=== PATIENT | female | born 2000 | race Caucasian/White ===

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

== ENCOUNTER 2021-01-16 19:55 | Emergency (ER) | payer BC, OTHER, SELFPAY ==
--- OUTSIDE RECORDS SUMMARY | 2021-01-16 19:58 | XMS REPORT | Continuity of Care Document ---
:2000 Author Organization [facility] t Address [address] [place] [address] Care Team Providers Name Role Phone SAVANAH Attending Clinician Unavailable Payers Payer Name Policy Type Policy Number Effective Date Expiration Date S ource Problems Condition Condition Condition Status Onset Resolution Last Treating Co mments Source Name Details Category Date Date Treatment Clinician Date Dog bite Dog bite Problem Active Unive rs of right of right HL7.CCDAR2 it y of hand, [facility], [place] initial initial Physici encounter encounter ans History [...] Allergie 2-14 Clear s 00:00: Duff 00 [facility] Lexapro drug Active Univers TABS allergy ity of [place] Physici ans Family History Family Member Diagnosis Comments Start Date Stop Date Source Mother Family history of Univers ity of [place] hypertension Physicians Mother Family history of Univers ity of [place] diabetes mellitus Physici ans Mother Family history of Univers ity of [place] malignant neoplasm Physic ians Father Family history of Univers ity of [place] hypertension Physicians Father Family history of Univers ity of [place] diabetes mellitus Physici ans Father Family history [...] 2014-02-20 Completed Unive rsity of Intramuscular 00:00:00 [place] Physi cians Suspension Meningococcal, MCV4, 2014-02-20 Completed [...] Injection 2005-09-20 Completed University of Injectable 00:00:00 [place] Physicia ns M-M-R II 2005-09-20 Completed University of Subcutaneous 00:00:00 [place] Physic ians Injectable hepatitis A vaccine, 2005-03-10 Completed Univ ersity of pediatric/adolescent [place] Phys[place] dosage, 2 dose schedule Hib, Haemophilus 2002-10-09 Completed Universi ty of influenzae type b 00:00:00 [place] P hysicians vaccine, PRP-T conjugate DTaP, unspecified [...] Universi ty of influenzae type b 00:00:00 [place] P hysicians vaccine, PRP-T conjugate DTaP, unspecified 2001 Completed Univers ity of formulation 00:00:00 [place] Physici ans Ipol Injection 2001 Completed University of Injectable 00:00:00 [place] Physicia ns Hepatitis B, 2001 Completed University o f pediatric/adolescent 00:00:[place] dosage Hib, Haemophilus 2001 Completed Universi ty of influenzae type b 00:00:00 [place] P hysicians vaccine, PRP-T conjugate DTaP, unspecified 2001 Completed Univers ity of formulation 00:00:00 [place] Physici ans Ipol Injection 2001 Completed University of Injectable 00:00:00 [place] Physicia ns Hepatitis B, 2001 Completed University o f pediatric/adolescent [place] dosage Procedures This patient has no known procedures. Encounters Start End Encounter Admission Attending Care Care Encounter Source Date/Time Date/Time Type Type Clinicians Facility Department ID 2018-05-08 2018-05-08 [facility] [id number] [facility] 08:45:00 08:45:00 t; lorenzo [facility] Marlene Jay Physici M.D. ans 2018-05-01 2018-05-01 [facility] [id number] [facility] 09:30:00 09:30:00 t; lorenzo [facility] Marlene Jay Physici M.D. ans Results Test Description Test Time Test Comments Results Result Comments Source SURGICAL SPECIMENS 2018-08-24 07:49:00 RUN DATE: 08/24/18 [facility] *LIVE* PAGE 1 RUN TIME: 748 Specimen Inquiry RUN USER: INTERFACE PATIENT: MARCO WYLIE LOC: ED U #: [id number] AGE/SX: ROOM: RE08/20/18[facility] DR: Rajendra Salas MD : 01 BED: DIS: STATUS: [facility] TLOC: SPEC #: [id number] RECD: 08/20/18 STATUS: JENNA ECHAVARRIA #: [id number] MARVIN: 08/20/18 [facility] DR: Rajendra Salas MD ENTERED: 08/22/18 SP TYPE: SURG SPEC OTHR DR: Gregory Thompson MD ORDERED: GM LEVEL 4 CODES: [id number] - ESOPHAGUS, NOS [id number] - STOMACH, NOS [id number] - SMALL INTESTINE COPIES TO: Rajendra Salas MD [address] [place] [address] [address] [address] Gregory Thompson MD [address] [place], [place] [address] PROCEDURES: GM LEVEL 4 (Incomplete) TISSUES: 1. [...] CONTINUED ON NEXT PAGE RUN DATE: 08/24/18 [facility] *LIVE* PAGE 2 RUN TIME: 748 Specimen Inquiry RUN USER: INTERFACE SPEC #: [id number] PATIENT: MARCO WYLIE #[id number] (Continued)--------- --- GROSS AND MICROSCOPIC GROSS EXAMINATION: [...] CONTINUED ON NEXT PAGE RUN DATE: 08/24/18 [facility] *LIVE* PAGE 3 RUN TIME: 748 Specimen Inquiry RUN USER: INTERFACE SPEC #: [id number] PATIENT: MARCO WYLIE #[id number] (Continued)--------- --- PRE-OP DIAGNOSIS Abdominal pain Signed [...] (test code = MDIFF) NO HCG SERUM [id number] 09:09:00 Test Item Value Reference Range Interpretation Comments HCG SERUM QUAL (test code = SERUM NEGATIVE NEGATIVE HCGQL)
[2021-01-16] MEDS ORDERED: ONDANSETRON 4 MG/2 ML VIAL ONE (22:39)
[2021-01-16] MEDS ORDERED: NA CHLORIDE 0.9% 1,000 ML ONE (22:39)
[2021-01-16 22:55] LABS: Absolute Lymphocytes (CBC) 1.2 K/uL (0.7-4.9); Basophils % 0.3 % (0-1.3); Hematocrit 38.9 % (36.0-45.0); Lymphocytes % 14.9 % (15.3-44.8); MPV 10.6 fL (7.6-11.3)
[2021-01-16 23:12] LABS: ALT/SGPT 19 U/L (12-78); AST/SGOT 9 U/L (15-37); Albumin 4.1 g/dL (3.4-5.0); Alkaline Phosphatase 72 U/L (45-117); BUN Blood Urea Nitrogen 7 mg/dL (7-18); Bicarbonate 27 mmol/L (21-32); Bilirubin Direct 0.1 mg/dL (0-0.2); Bilirubin Total 0.5 mg/dL (0.2-1.0); Glucose Level 80 mg/dL (74-106); Lipase 47 U/L (73-393); Potassium 3.9 mmol/L (3.5-5.1); Protein, Total 7.6 g/dL (6.4-8.2); Sodium Level 138 mmol/L (136-145)
--- NOTE | 2021-01-16 23:39 | EDPHYS ---
Physician Documentation [facility] Name: Rissa Sales Age: 20 yrs Sex: Female : 2000 Arrival Date: 01/16/2021 Time: 20:08 Bed DIS1 Private MD: ED Physician Luis Arias HPI: 01/17 00:00 This 20 yrs old Female presents to ER via Unassigned with complaints of kb Allergic Reaction - Medication. 00:00 The patient presents with vomiting, weakness, nausea. Onset: The symptoms/episode kb began/occurred 3 day(s) ago. Associated signs and symptoms: Pertinent positives: nausea, vomiting, weakness. Possible causes: At home the patient or guardian has treated the symptoms with nothing. Severity of symptoms: At their worst the symptoms were moderate in the emergency department the symptoms are unchanged. The patient has not experienced similar symptoms in the past. The patient has been recently seen by a physician:. Pt states she started Depakote at the beginning of the month. States she hasn't had a solid bm since she started the medication and has always had a small amount of abd pain after taking it that subsides after some time. States the medication wasn't working like they wanted it to so the dr increased her dose from 250mg BID to 500mg BID on 01/13. States she has had nausea and weakness since increasing the dose that is getting worse. States she called the dr this morning and was told to take 250mg in the mornings and 500mg at night to see if that helped the side effects, but if her symptoms worsened at all to come to the ER. States she vomited once prior to arrival so she came in.. 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 - Social history:: Smoking status: unknown. ROS: 23:59 Constitutional: Negative for fever, chills, and weight loss. kb 23:59 Abdomen/GI: Positive for nausea, vomiting, Negative for abdominal pain, diarrhea. 23:59 Neuro: Positive for weakness. 23:59 All other systems are negative. Exam: 01/17 00:00 Constitutional: This is a well developed, well nourished patient who is awake, alert, kb and in no acute distress. Head/Face: Normocephalic, atraumatic. ENT: Moist Mucous membranes Cardiovascular: Regular rate and rhythm with a normal S1 and S2. No gallops, murmurs, or rubs. No pulse deficits. Respiratory: Respirations even and unlabored. No increased work of breathing, no retractions or nasal flaring. Abdomen/GI: Soft, non-tender. No distention Skin: Warm, dry with normal turgor. Normal color. MS/ Extremity: Pulses equal, no cyanosis. Neurovascular intact. Full, normal range of motion. Neuro: Awake and alert, GCS 15, oriented to person, place, time, and situation. Moves all extremities. Normal gait. Psych: Awake, alert, with orientation to person, place and time. Behavior, mood, and affect are within normal limits. Vital Signs: 01/16 23:58 BP 106 / 58; Pulse 71; Resp 16 S; Temp 97.3(O); Pulse Ox 96% on R/A; bb MDM: 21:59 Patient medically screened. kb 23:58 Data reviewed: vital signs, nurses notes. Data interpreted: Pulse oximetry: on room air kb is 96 %. Interpretation: normal. Counseling: I had a detailed discussion with the patient and/or guardian regarding: the historical points, exam findings, and any diagnostic results supporting the discharge/admit diagnosis, lab results, the need for outpatient follow up, a family practitioner, to return to the emergency department if symptoms worsen or persist or if there are any questions or concerns that arise at home. ED course: Pt will call psychiatrist on Monday. Will decrease dosage back to 250mg BID until then. 01/17 00:00 ED course: Pt tolerating PO . kb 01/16 21:59 Order name: Depakote; Complete Time: 23:30 kb 01/16 21:59 Order name: Basic Metabolic Panel; Complete Time: 23:30 kb 01/16 21:59 Order name: CBC with Diff; Complete Time: 22:58 kb 01/16 21:59 Order name: Hepatic Function; Complete Time: 23:30 kb 01/16 21:59 Order name: Lipase; Complete Time: 23:30 kb 01/16 21:59 Order name: TSH; Complete Time: 23:30 kb 01/16 21:59 Order name: IV Saline Lock; Complete Time: 22:26 kb 01/16 21:59 Order name: Labs collected and sent; Complete Time: 22:26 kb 01/16 23:15 Order name: T4 Free; Complete Time: 23:30 EDMS Administered Medications: 01/16 22:26 Drug: Zofran (Ondansetron) 4 mg Route: IVP; Site: right antecubital; bb 23:25 Follow up: Response: No adverse reaction bb 22:26 Drug: NS 0.9% 1000 ml Route: IV; Rate: 1000 ml; Site: right antecubital; bb 23:25 Follow up: IV Status: Completed infusion; IV Intake: 1000ml bb Disposition: 01/17 06:39 Co-signature as Attending Physician, Luis Arias MD. mh7 Disposition Summary: 01/16/21 23:39 Discharge Ordered Location: Home kb Condition: Stable kb Diagnosis - Adverse Reaction to depakote kb Followup: kb - With: Emergency Department - When: As needed - Reason: Worsening of condition Followup: kb - With: Private Physician - When: 2 - 3 days - Reason: Recheck today's complaints, Continuance of care, Re-evaluation by your physician Discharge Instructions: - Discharge Summary Sheet em Forms: - Medication Reconciliation Form kb - Thank You Letter kb - Antibiotic Education kb - Prescription Opioid Use kb - Family Work Release em Signatures: Dispatcher [employer] EDMadelyn Garcia FNP-C FNP-June Morales RN RN bb Antunez, Elena RN Luis Mock ea, MD MD mh7
--- NOTE | 2021-01-16 23:39 | ER ---
Nurse's Notes [facility] Name: Rissa Sales Age: 20 yrs Sex: Female : 2000 Arrival Date: 01/16/2021 Time: 20:08 Bed DIS1 Private MD: Diagnosis: Adverse Reaction to depakote Presentation: 01/16 22:00 Chief complaint: Patient states: pt had recent change in her depakote dosage which was bb doubled she has been feeling nauseous, weak and dizzy since the change and vomited today. Coronavirus screen: At this time, the client does not indicate any symptoms associated with coronavirus-19. Initial Sepsis Screen: Does the patient meet any 2 criteria? No. Patient's initial sepsis screen is negative. Does the patient have a suspected source of infection? No. Patient's initial sepsis screen is negative. Risk Assessment: Do you want to hurt yourself or someone else? Patient reports no desire to harm self or others. Onset of symptoms was January 13, 2021. 22:00 Method Of Arrival: Ambulatory bb 22:00 Acuity: QUANG 3 bb 23:31 Ebola Screen: No symptoms or risks identified at this time. 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 - Social history:: Smoking status: unknown. Screenin:30 Abuse screen: Denies threats or abuse. Nutritional screening: No deficits noted. ea Tuberculosis screening: No symptoms or risk factors identified. Fall Risk None identified. Assessment: 21:55 General: Appears in no apparent distress. Behavior is calm, cooperative. Pain: Denies bb pain. Neuro: Level of Consciousness is awake, alert, obeys commands, Oriented to person, place, time, situation. Cardiovascular: Capillary refill < 3 seconds Patient's skin is warm and dry. Respiratory: Airway is patent Respiratory effort is even, unlabored. GI: No signs and/or symptoms were reported involving the gastrointestinal system. Derm: Skin is dry, Skin is pale, Skin temperature is warm. Musculoskeletal: Circulation, motion, and sensation intact. 23:31 Reassessment: Patient and/or family updated on plan of care and expected duration. Pain ea level reassessed. Patient is alert, oriented x 3, equal unlabored respirations, skin warm/dry/pink. Vital Signs: 23:58 BP 106 / 58; Pulse 71; Resp 16 S; Temp 97.3(O); Pulse Ox 96% on R/A; bb ED Course: 20:08 Patient arrived in ED. ds1 20:30 Patient has correct armband on for positive identification. Adult w/ patient. ea 21:55 No provider procedures requiring assistance completed. bb 21:59 Madelyn Hopkins FNP-C [facility] kb 21:59 Luis Arias MD is Attending Physician. kb 22:25 Initial lab(s) drawn, by me, sent to lab. Inserted saline lock: 20 gauge in right bb antecubital area, using aseptic technique. Blood collected. 23:30 Arm band placed on right wrist. Patient placed in an exam room, on a stretcher, on ea pulse oximetry. 01/17 00:00 IV discontinued, intact, bleeding controlled, No redness/swelling at site. Pressure bb dressing applied. 00:01 June Rueda, RN is Primary Nurse. bb 02:46 Triage completed. bb Administered Medications: 01/16 22:26 Drug: Zofran (Ondansetron) 4 mg Route: IVP; Site: right antecubital; bb 23:25 Follow up: Response: No adverse reaction bb 22:26 Drug: NS 0.9% 1000 ml Route: IV; Rate: 1000 ml; Site: right antecubital; bb 23:25 Follow up: IV Status: Completed infusion; IV Intake: 1000ml bb Intake: 23:25 IV: 1000ml; Total: 1000ml. bb Outcome: 23:39 Discharge ordered by MD. kb 01/17 00:01 Discharged to home ambulatory, with family. ea Condition: stable Discharge instructions given to patient, Instructed on discharge instructions, follow up and referral plans. Demonstrated understanding of instructions, follow-up care. 00:05 Patient left the ED. bb Signatures: Madelyn Hopkins FNP-C FNP-Dana Carr ds1 June Rueda, RN Rylee Mon RN RN ea
[2021-01-17 00:12] VITALS: BP 106/58; TEMP 97.3; O2SAT 96
== END 2021-01-17 00:05 | disposition home or self-care (01) ==
LOC: ER 19:55
DX: R53.1 Weakness (principal); T42.6X5A Adverse effect of other antiepileptic and sedative-hypnotic drugs, initial encounter; F32.9 Major depressive disorder, single episode, unspecified
CPT/HCPCS: 36415; 80048; 80076; 80164; 83690; 84439; 84443; 85025; 96361; 96374; 99284; J2405; J7030

== ENCOUNTER 2021-07-01 13:20 | Emergency (ER) | payer SELFPAY ==
--- OUTSIDE RECORDS SUMMARY | 2021-07-01 13:23 | XMS REPORT | Continuity of Care Document ---
:2000 Author Organization [facility] t Address [address] [place] [address] Care Team Providers Name Role Phone SAVANAH Attending Clinician Unavailable Payers Payer Name Policy Type Policy Number Effective Date Expiration Date S ource Problems Condition Condition Condition Status Onset Resolution Last Treating Co mments Source Name Details Category Date Date Treatment Clinician Date Dog bite Dog bite Problem Active Unive rs of right of right HL7.CCDAR2 it y of hand, hand, [place] initial initial Physici encounter encounter [...] Allergie 2-14 Clear s 00:00: Duff 00 [facility] Lexapro drug Active Univers TABS allergy ity [...] of [place] malignant neoplasm Physic ians Medications Ordered Filled [...] 2005-09-20 Completed Univers ity of formulation 00:00:00 [place] Physici ans Ipol Injection 2005-09-20 Completed University [...] II 2002-10-09 Completed University of Subcutaneous 00:00:00 [place] Physic ians Injectable Varivax 1350 2002-10-09 Completed [...] 2001 Completed Univers ity of formulation 00:00:00 [place] Physici ans Ipol Injection 2001 Completed University of Injectable 00:00:00 [place] Physicia ns Hepatitis B, 2001 Completed University o f pediatric/adolescent [place] dosage Procedures This patient has no known procedures. Encounters Start End Encounter Admission Attending Care Care Encounter Source Date/Time Date/Time Type Type Clinicians Facility Department ID 2018-05-08 2018-05-08 [facility] [id number] [facility] 08:45:00 08:45:00 t; lorenzo [facility] Marlene Jay Physici M.D. ans 2018-05-01 2018-05-01 [facility] [id number] [facility] 09:30:00 09:30:00 t; lorenzo [facility] Marlene Jay Physici M.D. ans Results Test Description Test Time Test Comments Results Result Comments Source SURGICAL SPECIMENS 2018-08-24 07:49:00 RUN DATE: 08/24/18 [facility] *LIVE* PAGE 1 RUN TIME: 748 Specimen Inquiry RUN USER: INTERFACE PATIENT: MARCO WYLIE LOC: ED U #: [id number] AGE/SX: ROOM: RE08/20/18REG DR: Rajendra Salas MD : 01 BED: DIS: STATUS: [facility] TLOC: SPEC #: [id number] RECD: 08/20/18 STATUS: JENNA ECHAVARRIA #: [id number] MARVIN: 08/20/[address]: Rajendra Salas MD ENTERED: 08/22/18 SP TYPE: SURG SPEC OTHR DR: Gregory Thompson MD ORDERED: GM LEVEL 4 CODES: [id number] - ESOPHAGUS, NOS [id number] - STOMACH, NOS [id number] - SMALL INTESTINE COPIES TO: Rajendra Salas MD [address] [place] [address] [address] [address] Gregory Thompson MD [address] [place], [place] [address] PROCEDURES: GM LEVEL 4 (Incomplete) TISSUES: 1. [...] CONTINUED ON NEXT PAGE RUN DATE: 08/24/18 [facility] *LIVE* PAGE 2 RUN TIME: 748 Specimen Inquiry RUN USER: INTERFACE SPEC #: [id number] PATIENT: MARCO WYLIE #[id number] (Continued)--------- --- GROSS AND MICROSCOPIC GROSS EXAMINATION: [...] CONTINUED ON NEXT PAGE RUN DATE: 08/24/18 [facility] *LIVE* PAGE 3 RUN TIME: 748 Specimen Inquiry RUN USER: INTERFACE SPEC #: [id number] PATIENT: MARCO WYLIE #[id number] (Continued)--------- --- PRE-OP DIAGNOSIS Abdominal pain Signed [...] (test code = MDIFF) NO HCG SERUM [id number] 09:09:00 Test Item Value Reference Range Interpretation Comments HCG SERUM QUAL (test code = SERUM NEGATIVE NEGATIVE HCGQL)
[2021-07-01 16:13] LABS: Urine Blood Negative (Negative); Urine Glucose Negative (Negative); Urine Protein Negative (Negative); Urine Specific Gravity 1.025 (1.005-1.030); Urine pH 7.5 (5.0-7.0)
[2021-07-01 16:17] LABS: Urine Specific Gravity/Preg 1.025 (1.005-1.030)
--- NOTE | 2021-07-01 19:14 | ER ---
Nurse's Notes [facility] Name: Rissa Sales Age: 21 yrs Sex: Female : 2000 Arrival Date: 07/01/2021 Time: 13:21 Bed Waiting Private MD: Diagnosis: Presentation: 07/01 15:12 Chief complaint: Patient states: abd pain, N/V/D x1week. Coronavirus screen: Vaccine day status: Patient reports being unvaccinated. Ebola Screen: Patient denies travel to an Ebola-affected area in the 21 days before illness onset. Initial Sepsis Screen: Does the patient meet any 2 criteria? No. Patient's initial sepsis screen is negative. Does the patient have a suspected source of infection? No. Patient's initial sepsis screen is negative. Risk Assessment: Do you want to hurt yourself or someone else? Patient reports no desire to harm self or others. Onset of symptoms was June 25, 2021. 15:12 Method Of Arrival: Ambulatory day 15:12 Acuity: QUANG 3 day Historical: - Allergies: 15:15 Lexapro; day - Home Meds: 15:15 Lexapro Oral [Active]; Prilosec Oral [Active]; day - PMHx: 15:15 Depression; day - Immunization history:: Adult Immunizations up to date. - Social history:: Smoking status: Patient denies any tobacco usage or history of. Vital Signs: 15:12 BP 120 / 76; Pulse 85; Resp 18; Temp 98.1; Pulse Ox 100% ; Weight 90.72 kg; Height 5 day ft. 3 in. (160.02 cm); 15:12 Body Mass Index 35.43 (90.72 kg, 160.02 cm) day ED Course: 13:21 Patient arrived in ED. am2 15:15 Triage completed. day 15:15 Stephen Shields NP is PHCP. pm1 15:15 Valentin Edmonds MD is Attending Physician. pm1 15:15 Arm band placed on left wrist. day 19:12 Patient's name was called from ER lobby. No response. Unable to locate patient. Will jl7 disposition as left without being seen by a provider. Administered Medications: No medications were administered Outcome: 19:13 Patient left the ED. jl7 Signatures: Stephen Shields NP FILM OR TAPE LIBRARIAN pm1 Jazmin Morley RN RN jl7 Erlinda Kyle am2 Ayana Craft RN RN day Corrections: (The following items were deleted from the chart) 18:59 18:59 Reassessment: Pt discharged by BISI chandler
--- NOTE | 2021-07-01 19:14 | EDPHYS ---
Physician Documentation [facility] Name: Rissa Sales Age: 21 yrs Sex: Female : 2000 Arrival Date: 07/01/2021 Time: 13:21 Bed Waiting Private MD: GIRISH Physician Valentin Edmonds HPI: 07/01 15:17 This 21 yrs old Female presents to ER via Ambulatory with complaints of Abdominal Pain, pm1 Nausea/Vomiting. 15:17 The patient presents with abdominal pain. pm1 15:17 Onset: The symptoms/episode began/occurred On and off for multiple months, worse the pm1 past 1 week. The symptoms do not radiate. Associated signs and symptoms: Pertinent positives: nausea and vomiting. The symptoms are described as achy. Modifying factors: The symptoms are alleviated by nothing, the symptoms are aggravated by possibly discontinuation of PPI by her GI MD after completion of treatment for gastric ulcer. Severity of pain: in the emergency department the pain is actually worse. The patient has experienced similar episodes in the past, multiple times. The patient has not recently seen a physician. Historical: - Allergies: 15:15 Lexapro; day - Home Meds: 15:15 Lexapro Oral [Active]; Prilosec Oral [Active]; day - PMHx: 15:15 Depression; day - Immunization history:: Adult Immunizations up to date. - Social history:: Smoking status: Patient denies any tobacco usage or history of. ROS: 15:17 Constitutional: Negative for fever, chills, and weight loss, Cardiovascular: Negative pm1 for chest pain, palpitations, and edema, Respiratory: Negative for shortness of breath, cough, wheezing, and pleuritic chest pain. 15:17 Back: Negative for injury and pain, : Negative for injury, bleeding, discharge, and swelling, MS/Extremity: Negative for injury and deformity, Skin: Negative for injury, rash, and discoloration, Neuro: Negative for headache, weakness, numbness, tingling, and seizure. 15:17 Abdomen/GI: Positive for abdominal pain, nausea and vomiting, Negative for diarrhea, constipation. 15:17 All other systems are negative. Exam: 15:17 Constitutional: This is a well developed, well nourished patient who is awake, alert, pm1 and in no acute distress. Head/Face: Normocephalic, atraumatic. 15:17 Cardiovascular: Exam negative for acute changes, Rate: normal, Rhythm: regular, Pulses: no pulse deficits are appreciated, Heart sounds: normal. 15:17 Respiratory: Exam negative for acute changes, respiratory distress, shortness of breath, Breath sounds: are clear throughout. 15:17 Abdomen/GI: Inspection: obese Palpation: abdomen is soft and non-tender, in all pm1 quadrants. 20:04 Back: No spinal tenderness. No costovertebral tenderness. Full range of motion. pm1 Skin: Warm, dry with normal turgor. Normal color with no rashes, no lesions, and no evidence of cellulitis. MS/ Extremity: Pulses equal, no cyanosis. Neurovascular intact. Full, normal range of motion. 20:04 Neuro: Exam negative for acute changes, Orientation: is normal, Mentation: is normal, Motor: is normal, moves all fours. Vital Signs: 15:12 BP 120 / 76; Pulse 85; Resp 18; Temp 98.1; Pulse Ox 100% ; Weight 90.72 kg; Height 5 day ft. 3 in. (160.02 cm); 15:12 Body Mass Index 35.43 (90.72 kg, 160.02 cm) day MDM: 15:37 Patient medically screened. pm1 16:20 Data reviewed: vital signs. Data interpreted: Pulse oximetry: on room air is 100 %. pm1 Interpretation: normal. 07/01 15:16 Order name: Basic Metabolic Panel pm1 07/01 16:13 Order name: Urine Dipstick-Ancillary; Complete Time: 16:17 EDMS 07/01 15:16 Order name: Urine Dipstick-Ancillary (obtain specimen) pm1 07/01 15:16 Order name: Urine Test (obtain specimen) pm1 07/01 15:16 Order name: IV Saline Lock pm1 07/01 15:16 Order name: Labs collected and sent pm1 07/01 16:15 Order name: Urine --Ancillary (enter results); Complete Time: 16:17 dh4 07/01 17:24 Order name: Urine Culture pm1 Administered Medications: No medications were administered Disposition Summary: 07/01/21 19:13 Eloped Disposition: after being seen by provider geraldine Reason: unknown geraldine Addendum: 07/03/2021 09:05 Co-signature as Attending Physician, Valentin Edmonds MD I agree with the assessment and c day plan of care. Signatures: Dispatcher [employer] Valentin Willis MD MD cha Marinas, Patrick, TAIWO PROFESSOR OF LITERACY pm1 Jazmin Morley, RN RN jl7 Huong-StagerAyana RN RN day
[2021-07-01 19:22] VITALS: BP 120/76; TEMP 98.1; O2SAT 100
== END 2021-07-01 19:13 | disposition left against medical advice (07) ==
LOC: ER 13:20
DX: R11.2 Nausea with vomiting, unspecified (principal); Z53.21 Procedure and treatment not carried out due to patient leaving prior to being seen by health care provider
CPT/HCPCS: 81003; 81025; 87077; 87086; 87088; 87186; 99281

== ENCOUNTER 2021-07-30 18:11 | Emergency (ER) | payer SELFPAY ==
--- OUTSIDE RECORDS SUMMARY | 2021-07-30 18:13 | XMS REPORT | Continuity of Care Document ---
:2000 Author Organization [facility] t Address [address] [place] [address] Care Team Providers Name Role Phone SAVANAH Attending Clinician Unavailable Payers Payer Name Policy Type Policy Number Effective Date Expiration Date S ource Problems Condition Condition Condition Status Onset Resolution Last Treating Co mments Source Name Details Category Date Date Treatment Clinician Date Dog bite Dog bite Problem Active Unive rs of right of right [id number] it y of hand, hand, [place] initial initial Physici encounter encounter ans History [...] Allergie 2-14 Clear s 00:00: Duff 00 [facility] Lexapro drug Active Univers TABS allergy ity of [place] Physici ans Family History Family Member Diagnosis Comments Start Date Stop Date Source Mother Family history of Univers ity of [place] hypertension Physicians Mother Family history of Univers ity of [place] diabetes mellitus Physici ans Mother Family history of Univers ity of [place] malignant neoplasm Physic ians Father Family history of Univers ity of [place] hypertension Physicians Father Family history of Univers ity of [place] diabetes mellitus Physici ans Father Family history of Univers ity of [place] malignant neoplasm Physic ians Medications Ordered Filled [...] 2014-02-20 Completed Unive rsity of Intramuscular 00:00:00 [place] Physi cians Suspension Meningococcal, MCV4, 2014-02-20 Completed Univ ersity of unspecified 00:00:00 [place] Physici ans conjugate formulation(groups A, C, Y and W-135) Varivax 1350 2008-02-15 Completed University o f PFU/0.5ML 00:00:00 [place] Physicia ns Subcutaneous Injectable hepatitis A vaccine, 2005-09-26 Completed Univ ersity of pediatric/adolescent [place] dosage, 2 dose schedule DTaP, unspecified 2005-09-20 Completed Univers ity of formulation 00:00:00 [place] Physici ans Ipol Injection 2005-09-20 Completed University of Injectable 00:00:00 [place] Physicia ns M-M-R II 2005-09-20 Completed University of Subcutaneous 00:00:00 [place] Physic ians Injectable hepatitis A vaccine, 2005-03-10 Completed Univ ersity of pediatric/adolescent [place] dosage, 2 dose schedule Hib, Haemophilus 2002-10-09 Completed Universi ty of influenzae type b 00:00:00 [place] P hysicians vaccine, PRP-T conjugate DTaP, unspecified 2002-10-09 Completed Univers ity of formulation 00:00:00 [place] Physici ans Ipol Injection 2002-10-09 Completed University of Injectable 00:00:00 [place] Physicia ns M-M-R II 2002-10-09 Completed University of Subcutaneous 00:00:00 [place] Physic ians Injectable Varivax 1350 2002-10-09 Completed [...] 2001 Completed Univers ity of formulation 00:00:00 [place] Physici ans Ipol Injection 2000 Completed University of Injectable 00:00:00 [place] Physicia ns Hepatitis B, 2001 Completed University o f pediatric/adolescent [place] dosage Procedures This patient has no known procedures. Encounters Start End Encounter Admission Attending Care Care Encounter Source Date/Time Date/Time Type Type Clinicians Facility Department ID 2018-05-08 2018-05-08 PATRIA [facility]gu[facility] [id number] [facility] 08:45:00 08:45:00 t; lorenzo [facility] Marlene Jay Physici M.D. ans 2018-05-01 2018-05-01 PATRIA [facility]nu[facility] [id number] [facility] 09:30:00 09:30:00 t; lorenzo [facility] Marlene Jay Physici M.D. ans Results Test Description Test Time Test Comments Results Result Comments Source SURGICAL SPECIMENS 2018-08-24 07:49:00 RUN DATE: 08/24/18 [facility] *LIVE* PAGE 1 RUN TIME: 748 Specimen Inquiry RUN USER: INTERFACE PATIENT: MARCO WYLIE LOC: ED U #: [id number] AGE/SX: ROOM: RE08/20/18REG DR: Rajendra Salas MD : 01 BED: DIS: STATUS: [facility]: SPEC #: [id number] RECD: 08/20/18 STATUS: JENNA ECHAVARRIA #: [id number] MARVIN: 08/20/[address]: Rajendra Salas MD ENTERED: 08/22/18 SP TYPE: SURG SPEC OTHR DR: Gregory Thompson MD ORDERED: GM LEVEL 4 CODES: [id number] - ESOPHAGUS, NOS [id number] - STOMACH, NOS [id number] - SMALL INTESTINE COPIES TO: Rajendra Salas MD [address] [place] [address] [address], [place] [address] Gregory Thompson MD [address] [place], [place] [address] PROCEDURES: GM LEVEL 4 (Incomplete) TISSUES: 1. [...] CONTINUED ON NEXT PAGE RUN DATE: 08/24/18 [facility] *LIVE* PAGE 2 RUN TIME: 748 Specimen Inquiry RUN USER: INTERFACE SPEC #: [id number] PATIENT: MARCO WYLIE #[id number] (Continued)--------- --- GROSS AND MICROSCOPIC GROSS EXAMINATION: [...] CONTINUED ON NEXT PAGE RUN DATE: 08/24/18 [facility] *LIVE* PAGE 3 RUN TIME: 748 Specimen Inquiry RUN USER: INTERFACE SPEC #: [id number] PATIENT: MARCO WYLIE #[id number] (Continued)--------- --- PRE-OP DIAGNOSIS Abdominal pain Signed [...] (test code = MDIFF) NO HCG SERUM [id number] 09:09:00 Test Item Value Reference Range Interpretation Comments HCG SERUM QUAL (test code = SERUM NEGATIVE NEGATIVE HCGQL)
[2021-07-30 21:12] LABS: SARS-COV-2 RT PCR NEGATIVE (NEGATIVE)
[2021-07-30] MEDS ORDERED: dexAMETHasone 4 MG TAB ONE (21:52)
[2021-07-30 21:53] LABS: Absolute Lymphocytes (CBC) 1.9 K/uL (0.7-4.9); Hematocrit 41.4 % (36.0-45.0); Lymphocytes % 13.4 % (15.3-44.8); MPV 9.8 fL (7.6-11.3); RBC Red Blood Cell Count 4.77 M/uL (3.86-4.86)
[2021-07-30] MEDS ORDERED: LIDOCAINE VISCOUS 2% SOLN 15 ML UDC ONE (21:53)
[2021-07-30 22:03] LABS: Urine Blood Trace-intact (Negative); Urine Glucose Negative (Negative); Urine Protein 1+ (Negative); Urine Specific Gravity 1.025 (1.005-1.030)
[2021-07-30 22:08] LABS: Urine Specific Gravity/Preg 1.005 (1.005-1.030)
[2021-07-30 22:14] LABS: BUN Blood Urea Nitrogen 9 mg/dL (7-18); Bicarbonate 25 mmol/L (21-32); Glucose Level 91 mg/dL (74-106); Sodium Level 135 mmol/L (136-145)
[2021-07-30 22:15] LABS: Potassium 3.8 mmol/L (3.5-5.1)
[2021-07-30 22:21] LABS: Urine Bacteria LOADED /HPF (<20); Urine Mucus 2+ /HPF (NONE SEEN)
--- NOTE | 2021-07-30 22:56 | ER ---
Nurse's Notes [facility] Name: Rissa Sales Age: 21 yrs Sex: Female : 2000 Arrival Date: 07/30/2021 Time: 18:13 Bed 10 Private MD: Diagnosis: Acute tonsillitis, unspecified;UTI/ Urinary tract infection, site not specified Presentation: 07/30 18:55 Chief complaint: Patient states: she was seen by the health clinic via telemedicine, ap3 however they told her they would not be able to see her in person. Patient reports sore throat with painful swallowing. Coronavirus screen: fever, sore throat, Client presents with at least one sign or symptom that may indicate coronavirus-19. Standard/surgical mask placed on the client. Ebola Screen: No symptoms or risks identified at this time. Initial Sepsis Screen: Does the patient meet any 2 criteria? No. Patient's initial sepsis screen is negative. Does the patient have a suspected source of infection? No. Patient's initial sepsis screen is negative. Risk Assessment: Do you want to hurt yourself or someone else? Patient reports no desire to harm self or others. Onset of symptoms was July 30, 2021. 18:55 Method Of Arrival: Ambulatory ap3 18:55 Acuity: QUANG 4 ap3 Triage Assessment: 18:59 General: Appears in no apparent distress. uncomfortable, Behavior is calm, cooperative. ap3 Pain: Complains of pain in throat. EENT: Throat is reddened has patchy exudate has enlarged tonsils on right on left. Neuro: Level of Consciousness is awake, alert, obeys commands. Cardiovascular: Patient's skin is warm and dry. Respiratory: Airway is patent Respiratory effort is even, unlabored, Respiratory pattern is regular, symmetrical. 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 - Social history:: Smoking status: Reported history of juuling and/or vaping. Screenin:00 Abuse screen: Denies threats or abuse. Nutritional screening: No deficits noted. ap3 Tuberculosis screening: No symptoms or risk factors identified. 07/31 00:07 Fall Risk None identified. sf1 Assessment: 00:07 Respiratory: Airway is patent Breath sounds are clear bilaterally. sf1 Vital Signs: 07/30 18:55 BP 125 / 73; Pulse 101; Resp 17; Temp 99.2; Pulse Ox 100% ; Weight 91.63 kg; Height 5 ap3 ft. 3 in. (160.02 cm); Pain 8/10; 18:55 Body Mass Index 35.78 (91.63 kg, 160.02 cm) ap3 ED Course: 18:13 Patient arrived in ED. ds1 18:55 Valentin Maria PA is PHCP. cp 18:55 Brown Martínez MD is Attending Physician. cp 18:57 Triage completed. ap3 19:00 Arm band placed on right wrist. ap3 21:38 Maia Ko RN is Primary Nurse. sf1 21:38 Throat Culture Sent. sf1 21:49 BMP Sent. sf1 21:49 Josephine Screen Profile Sent. sf1 21:49 CBC with Diff Sent. sf1 07/31 00:07 Patient has correct armband on for positive identification. sf1 00:07 No provider procedures requiring assistance completed. IV discontinued, intact, sf1 bleeding controlled, No redness/swelling at site. Pressure dressing applied. Administered Medications: 07/30 22:02 Drug: Decadron (dexamethasone) 10 mg Route: PO; sf1 22:02 Drug: Viscous Lidocaine Liquid (4 %) 5 ml Route: Mucous Membrane; sf1 23:26 Drug: Rocephin - (cefTRIAXone) 2 grams Route: IVPB; Infused Over: 30 mins; Site: right sf1 antecubital; Outcome: 22:55 Discharge ordered by . cp 07/31 00:07 Discharged to home ambulatory. sf1 Condition: good Discharge instructions given to patient, Instructed on discharge instructions, follow up and referral plans. Demonstrated understanding of instructions, follow-up care, medications, Prescriptions given X 3. 00:08 Patient left the ED. sf1 Addendum: 08/03/2021 19:16 Addendum: Culture Results: Positive urine culture. Bacteria is resistant to, has s s intermediate sensitivity, or is not tested against prescribed antibiotics. Report given to CHRISSY for further evaluation and then to licensed nursing assistant for follow up with patient. Phone call Attempt #1 Pt feeling better. Signatures: Dana Diamond ds1 Lorrie Rodriguez RN RN ss Valentin Maria PA PA cp Prokisch, Amanda RN RN ap3 Maia Ko RN RN sf1
--- NOTE | 2021-07-30 22:56 | EDPHYS ---
Physician Documentation [facility] Name: Rissa Sales Age: 21 yrs Sex: Female : 2000 Arrival Date: 07/30/2021 Time: 18:13 Bed 10 Private MD: ED Physician Brown Martínez HPI: 07/30 21:30 This 21 yrs old Female presents to ER via Ambulatory with complaints of Sore Throat. cp 21:30 The patient presents with sore throat. cp 21:30 The patient describes throat pain as constant. cp 21:30 Onset: The symptoms/episode began/occurred today. cp 21:30 Associated signs and symptoms: Pertinent positives: fever, headache, low back pain, cp Pertinent negatives cough, diarrhea, dysphagia, earache, shortness of breath, vomiting. 21:30 Patient reports being seen by tele doc and having negative strep test today. 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 - Social history:: Smoking status: Reported history of juuling and/or vaping. ROS: 21:35 Constitutional: Negative for fever, poor PO intake. cp 21:35 Eyes: Negative for injury, pain, redness, and discharge. cp 21:35 ENT: Positive for sore throat, Negative for drainage from ear(s), ear pain, difficulty swallowing, difficulty handling secretions. 21:35 Cardiovascular: Negative for chest pain, palpitations. 21:35 Respiratory: Negative for cough, shortness of breath, wheezing. 21:35 Abdomen/GI: Negative for abdominal pain, vomiting, diarrhea, constipation. 21:35 Back: Positive for pain at rest, of the low back area. 21:35 Neuro: Positive for headache, Negative for altered mental status, weakness. 21:35 All other systems are negative. Exam: 21:40 Constitutional: The patient appears in no acute distress, alert, awake, non-toxic, well cp developed, well nourished. 21:40 Head/Face: Normocephalic, atraumatic. cp 21:40 Eyes: Periorbital structures: appear normal, Conjunctiva: normal, no exudate, no injection, Sclera: no appreciated abnormality, Lids and lashes: appear normal, bilaterally. 21:40 ENT: External ear(s): are unremarkable, Ear canal(s): are normal, clear, TM's: dullness, bilaterally, Nose: is normal, Mouth: Lips: moist, Oral mucosa: pink and intact, moist, Posterior pharynx: Airway: no evidence of obstruction, patent, Tonsils: bilaterally enlarged, with erythema, with exudate, Uvula: midline, erythema, that is mild. 21:40 Neck: ROM/movement: is normal, is supple, no meningismus, no nuchal rigidity. 21:40 Chest/axilla: Inspection: normal. 21:40 Cardiovascular: Rate: tachycardic. 21:40 Respiratory: the patient does not display signs of respiratory distress, Respirations: normal, no use of accessory muscles, no retractions, labored breathing, is not present, Breath sounds: are clear throughout, no decreased breath sounds, no stridor, no wheezing. 21:40 Abdomen/GI: Exam negative for discomfort, distension, guarding, Inspection: abdomen appears normal. 21:40 Back: pain, that is mild, of the low back area, CVA tenderness, is absent. 21:40 Neuro: Orientation: to person, place \\T\\ time. Mentation: is normal. Vital Signs: 18:55 BP 125 / 73; Pulse 101; Resp 17; Temp 99.2; Pulse Ox 100% ; Weight 91.63 kg; Height 5 ap3 ft. 3 in. (160.02 cm); Pain 8/10; 18:55 Body Mass Index 35.78 (91.63 kg, 160.02 cm) ap3 MDM: 20:42 Patient medically screened. cp 22:00 Differential diagnosis: group A strep tonsillitis, mononucleosis, peritonsillar abscess cp pharyngitis, tonsillitis, upper respiratory infection, uvulitis, UTI, pyelonephritis. 22:55 Data reviewed: vital signs, nurses notes, lab test result(s). cp 22:55 Counseling: I had a detailed discussion with the patient and/or guardian regarding: the cp historical points, exam findings, and any diagnostic results supporting the discharge/admit diagnosis, lab results, to return to the emergency department if symptoms worsen or persist or if there are any questions or concerns that arise at home. ED course: VSS. Patient appears non-toxic and tolerating po. Will discharge to home for continued monitoring. 07/30 19:01 Order name: COVID-19/FLU A+B/RSV (Document "Date of Onset" if Symptomatic); Complete ap3 Time: 22:42 07/30 19:01 Order name: Strep; Complete Time: 22:42 ap3 07/30 19:29 Order name: Throat Culture [facility] 07/30 21:27 Order name: CBC with Diff; Complete Time: 22:42 07/30 22:42 Interpretation: Normal except: WBC 14.50; LEONA% 79.8; LYM% 13.4; NEUT A 11.5. 07/30 21:27 Order name: BMP; Complete Time: 22:42 07/30 22:43 Interpretation: Normal except: NA 135. 07/30 21:27 Order name: [place] Screen Profile; Complete Time: 22:42 07/30 22:02 Order name: Urine Dipstick-Ancillary; Complete Time: 22:42 EDNM 07/30 22:43 Interpretation: Normal except: UBLD Trace-intact; UPROT 1+; U NIT Positive; UESTR 3+. 07/30 22:03 Order name: Urine Microscopic Only [facility] 07/30 22:03 Order name: Urine Microscopic Only; Complete Time: 22:42 [facility] 07/30 22:43 Interpretation: Normal except: SQEPI 20-50; UBACT LOADED; URBC 5-10; UWBC 10-20. 07/30 22:04 Order name: Urine --Ancillary (enter results); Complete Time: 22:42 cs9 07/30 22:22 Order name: Urine Culture [facility] 07/30 21:27 Order name: Urine Dipstick-Ancillary (obtain specimen); Complete Time: 22:02 07/30 21: Order name: Urine Test (obtain specimen); Complete Time: 22:02 cp Administered Medications: 22:02 Drug: Decadron (dexamethasone) 10 mg Route: PO; 22:02 Drug: Viscous Lidocaine Liquid (4 %) 5 ml Route: Mucous Membrane; sf1 23:26 Drug: Rocephin - (cefTRIAXone) 2 grams Route: IVPB; Infused Over: 30 mins; Site: right sf1 antecubital; Disposition: 07/31 07:02 Co-signature as Attending Physician, Brown Martínez MD I agree with the assessment and kdr plan of care. Disposition Summary: 07/30/21 22:55 Discharge Ordered Location: Home cp Problem: new cp Symptoms: have improved cp Condition: Stable cp Diagnosis - Acute tonsillitis, unspecified cp - UTI/ Urinary tract infection, site not specified cp Followup: cp - With: Private Physician - When: 2 - 3 days - Reason: Worsening of condition Discharge Instructions: - Discharge Summary Sheet cp - Tonsillitis cp - Urinary Tract Infection, Adult cp Forms: - Medication Reconciliation Form cp - Thank You Letter cp - Antibiotic Education cp - Prescription Opioid Use cp - Work release form sf1 Prescriptions: - Lidocaine Viscous - take 5 milliliter by ORAL route every 4-6 hours As needed; 1 bottle; Refills: cp 0, Product Selection Permitted - Augmentin 875-125 mg Oral Tablet - take 1 tablet by ORAL route every 12 hours for 10 days; 20 tablet; Refills: 0, cp Product Selection Permitted - Ibuprofen 800 mg Oral Tablet - take 1 tablet by ORAL route every 8 hours As needed take with food; 30 tablet; cp Refills: 0, Product Selection Permitted Signatures: Dispatcher [employer] EDNM Brown Martínez MD MD [facility] Valentin Maria PA PA cp Erlinda Downey RN RN ap3 Maia Ko RN RN sf1
[2021-07-30] MEDS ORDERED: NA CHLORIDE 0.9% 100 ML ONE (23:11)
[2021-07-30] MEDS ORDERED: CEFTRIAXONE 1000 MG/VIAL ONE (23:11)
[2021-07-30] MEDS ORDERED: NA CHLORIDE 0.9% 50 ML ONE ×2 (23:12→23:13)
[2021-07-31 00:20] VITALS: BP 125/73; TEMP 99.2; O2SAT 100
== END 2021-07-31 00:08 | disposition home or self-care (01) ==
LOC: ER 18:11
DX: J03.90 Acute tonsillitis, unspecified (principal); N39.0 Urinary tract infection, site not specified; F32.A Depression, unspecified; Z20.822 Contact with and (suspected) exposure to COVID-19; Z88.8 Allergy status to other drugs, medicaments and biological substances
CPT/HCPCS: 0241U; 36415; 80048; 81003; 81015; 81025; 85025; 86308; 87070; 87077; 87081; 87086; 87088; 87186; 96374; 99283; J8540

== ENCOUNTER 2022-03-27 23:57 | Emergency (ER) | payer SELFPAY ==
--- OUTSIDE RECORDS SUMMARY | 2022-03-28 00:02 | XMS REPORT | Continuity of Care Document ---
:2000 Author Organization [facility] t Address [address] [place] [address] [place] [id number] Care Team Providers Name Role Phone Jailene Gao Primary Care Physician [phone] CECILIA PAVON M.D. Attending Clinician Unavailable Payers Payer Name Policy Type Policy Number Effective Date Expiration Date S ource Problems Condition Condition Condition Status Onset Resolution Last Treating Co mments Source Name Details Category Date Date Treatment Clinician Date Dog bite Dog bite Problem Active [place] of right of right HL7.CCDAR2 Ph ysici hand, hand, ans initial initial encounter encounter History of History of Problem Resolve UT Chronic Chronic HL7.CCDAR2 d Phys ici GERD GERD ans History of History of Problem Resolve UT depression depression HL7.CCDAR2 d Physici ans Allergies, Adverse Reactions, Alerts Allergy Allergy Status Severity Reaction(s) Onset Inactive Treating Comm ents Source Name Type Date Date Clinician Mesna - Propensi Active Intraven ty to 6-15 ous adverse 00:00: reaction 00 to drug Lexapro Propensi Active - Oral ty to 3-15 adverse 00:00: reaction 00 to drug Lexapro Propensi Active ty to 1-28 adverse 00:00: reaction 00 to drug No Known DA Active U [facility] Allergie 2-14 Clear s 00:00: Duff 00 [facility] Lexapro drug Active UT TABS allergy Physici ans Family History Family Member Diagnosis Comments Start Date Stop Date Source Mother Family history of [facility] hypertension Mother Family history of diabetes [facility] mellitus Mother Family history of malignant [facility] neoplasm Father Family history of [facility] hypertension Father Family history of diabetes [facility] mellitus Father Family history of malignant [facility] neoplasm Medications Ordered Filled Start Stop Current Ordering Indication Dosage Frequency Signature Comments Components Source Medication Medication Date Date Medication? Clinician (SIG) Name Name levothyroxi 2021-0 No 1mcg ne 88 mcg 6-19 tablet 00:00: 00 Vitamin D2 2021-0 No 1(50,00 1,250 mcg 6-19 0 unit) (50,000 00:00: unit) 00 capsule levothyroxi 0 No 1mcg ne 88 mcg 6-15 tablet 00:00: 00 Dose 2021-0 No Unknown 3-17 00:00: 00 Dose 2021-0 No Unknown 3-17 00:00: 00 Dose 2021-0 No Unknown 3-17 00:00: 00 Dose 2021-0 No Unknown 3-17 00:00: 00 Dose 2021-0 No Unknown 3-17 00:00: 00 Dose 2021-0 No Unknown 3-17 00:00: 00 Dose 2021-0 No Unknown 3-17 00:00: 00 Dose 2021-0 No Unknown 3-17 00:00: 00 Dose 2021-0 No Unknown 3-17 00:00: 00 Dose 2021-0 No Unknown 3-17 00:00: 00 Dose 2021-0 No Unknown 3-17 00:00: 00 Dose 2021-0 No Unknown 3-17 00:00: 00 Dose 2021-0 No Unknown 3-17 00:00: 00 Dose 2021-0 No Unknown 3-17 00:00: 00 Dose 2021-0 No Unknown 3-17 00:00: 00 Dose 2021-0 No Unknown 3-17 00:00: 00 Dose 2021-0 No Unknown 3-17 00:00: 00 Dose 2021-0 No Unknown 3-17 00:00: 00 Dose 2021-0 No Unknown 3-17 00:00: 00 Dose 2021-0 No Unknown 3-17 00:00: 00 Dose 2022-0 No Unknown 3-17 00:00: 00 Dose 2022-0 No Unknown 3-17 00:00: 00 Dose 2022-0 No Unknown 3-17 00:00: 00 Dose 2022-0 No Unknown 3-17 00:00: 00 Dose 2022-0 No Unknown 3-17 00:00: 00 Dose 2022-0 No Unknown 3-17 00:00: 00 Dose 2022-0 No Unknown 3-17 00:00: 00 Dose 2022-0 No Unknown 3-17 00:00: 00 Dose 2022-0 No Unknown 3-15 00:00: 00 Dose 2022-0 No Unknown 3-15 00:00: 00 Dose 2022-0 No Unknown 3-15 00:00: 00 Dose 2022-0 No Unknown 3-15 00:00: 00 Dose 2022-0 No Unknown 3-15 00:00: 00 Dose 2022-0 No Unknown 3-15 00:00: 00 Dose 2022-0 No Unknown 3-15 00:00: 00 Dose 2022-0 No Unknown 3-15 00:00: 00 Dose 2022-0 No Unknown 3-15 00:00: 00 Dose 2022-0 No Unknown 3-15 00:00: 00 Dose 2022-0 No Unknown 3-15 00:00: 00 Dose 2022-0 No Unknown 3-15 00:00: 00 Dose 2022-0 No Unknown 3-15 00:00: 00 Dose 2022-0 No Unknown 3-15 00:00: 00 metronidazo 2022-0 No 1mg le 500 mg 2-17 tablet 00:00: 00 Seroquel 50 2-0 No 1mg mg tablet 2-17 00:00: 00 fluconazole 2-0 No 1mg 150 mg 2-17 tablet 00:00: 00 nystatin 2-0 No 1unit/g 100,000 2-16 charissa unit/gram 00:00: topical 00 cream Depakote 2-0 No 2mg 250 mg 2-16 tablet,sakina 00:00: yed release 00 Dose 2-0 No Unknown 2-16 00:00: 00 buspirone 5 2-0 No 1mg mg tablet 2-16 00:00: 00 Dose 2022-0 No Unknown 2-16 00:00: 00 levothyroxi 2021-0 No 1mcg ne 88 mcg 1-20 tablet 00:00: 00 buspirone 5 2021-0 No 1mg mg tablet 1-19 00:00: 00 Depakote 2021-0 No 1mg 250 mg 1-19 tablet,sakina 00:00: yed release 00 Abilify 2 2021-0 No 2mg mg tablet 1-19 00:00: 00 Dose 2021-0 No Unknown 1-19 00:00: 00 cholecalcif 2020-1 No 1(1,000 arelis 2-09 unit) (vitamin 00:00: D3) 25 mcg 00 (1,000 unit) tablet levothyroxi 1 No 1mcg ne 88 mcg 2-04 tablet 00:00: 00 buspirone 5 2020-1 No 1mg mg tablet 1-19 00:00: 00 Depakote 2020-1 No 1mg 500 mg 1-19 tablet,sakina 00:00: yed release 00 Dose 2020-1 No Unknown 1-19 00:00: 00 hydroxyzine 2020-1 No 1mg HCl 25 mg 1-19 tablet 00:00: 00 Depakote 2020-1 No 1mg 500 mg 1-18 tablet,sakina 00:00: yed release 00 buspirone 5 2020-1 No 1mg mg tablet 1-18 00:00: 00 Abilify 2 2020-1 No 2mg mg tablet 1-18 00:00: 00 hydroxyzine 2020-1 No 1mg HCl 25 mg 1-18 tablet 00:00: 00 Depakote 2020-1 No 3mg 250 mg 0-27 tablet,sakina 00:00: yed release 00 Dose 2020-1 No Unknown 0-27 00:00: 00 hydroxyzine 2020-1 No 1mg HCl 25 mg 0-27 tablet 00:00: 00 levothyroxi 2020-1 No 1mcg ne 88 mcg 0-07 tablet 00:00: 00 levothyroxi 2020-1 No 1mcg ne 75 mcg 0-06 tablet 00:00: 00 Dose 2020-0 No Unknown 9-21 00:00: 00 Depakote 2020-0 No 3mg 250 mg 9-21 tablet,sakina 00:00: yed release 00 hydroxyzine 2021-0 No 1mg HCl 25 mg 9-21 tablet 00:00: 00 Depakote 2021-0 No 3mg 250 mg 8-19 tablet,sakina 00:00: yed release 00 Abilify 2 2021-0 No 1mg mg tablet 8-19 00:00: 00 hydroxyzine 2021-0 No 1mg HCl 25 mg 8-19 tablet 00:00: 00 Abilify 2 1-0 No 1mg mg tablet 7-30 00:00: 00 Depakote 2021-0 No 3mg 250 mg 7-30 tablet,sakina 00:00: yed release 00 Depakote 1-0 No 3mg 250 mg 7-29 tablet,sakian 00:00: yed release Abilify 2 1-0 No 1mg mg tablet 7 00:00: 00 mupirocin 2 1-0 No 1% % topical 7-21 ointment 00:00: 00 Dose 1-0 No Unknown 7-21 00:00: 00 famotidine 1-0 No 1mg 40 mg 7-21 tablet 00:00: 00 sulfamethox 1-0 No 1mg azole 800 7-21 mg-trimetho 00:00: prim 160 mg 00 tablet Depakote 1-0 No 1mg 250 mg 7-21 tablet,sakina 00:00: yed release 00 Depakote 1-0 No 1mg 250 mg 7-19 tablet,sakina 00:00: yed release 00 Dose 1-0 No Unknown 7-14 00:00: 00 Depakote 1-0 No 1mg 500 mg 7-14 tablet,saknia 00:00: yed release 00 Dose 1-0 No Unknown 7-14 00:00: 00 Depakote 2021-0 No 1mg 250 mg 7-07 tablet,sakina 00:00: yed release 00 Dose 1-0 No Unknown 7-03 00:00: 00 Diflucan 2021-0 No 1mg 150 mg 4-29 tablet 00:00: 00 levothyroxi 2021-0 No 1mcg ne 75 mcg 4-21 tablet 00:00: 00 Amoxicillin Amoxicillin Yes U T -Pot -Pot Physici Clavulanate Clavulanate a ns 875-125 MG 875-125 MG Oral Tablet Oral Tablet Immunizations Ordered Immunization Filled Immunization Date Status Commen ts Source Name Name Cindy 5-2.5-18.5 2014-02-20 Completed [facility] Intramuscular 00:00:00 Suspension Meningococcal, MCV4, 2014-02-20 Completed [facility] unspecified conjugate 00:00:00 formulation(groups A, C, Y and W-135) Varivax 1350 2008-02-15 Completed [facility] PFU/0.5ML 00:00:00 Subcutaneous Injectable hepatitis A vaccine, 2005-09-26 Completed [facility] pediatric/adolescent 00:00:00 dosage, 2 dose schedule DTaP, unspecified 2005-09-20 Completed [facility] formulation 00:00:00 Ipol Injection 2005-09-20 Completed [facility] Injectable 00:00:00 M-M-R II Subcutaneous 2005-09-20 Completed [facility] Injectable 00:00:00 hepatitis A vaccine, 2005-03-10 Completed [facility] pediatric/adolescent 00:00:00 dosage, 2 dose schedule Hib, Haemophilus 2002-10-09 Completed [facility] influenzae type b 00:00:00 vaccine, PRP-T conjugate DTaP, unspecified 2002-10-09 Completed [facility] formulation 00:00:00 Ipol Injection 2002-10-09 Completed [facility] Injectable 00:00:00 M-M-R II Subcutaneous 2002-10-09 Completed [facility] Injectable 00:00:00 Varivax 1350 2002-10-09 Completed [facility] PFU/0.5ML 00:00:00 Subcutaneous Injectable Hepatitis B, 2002-01-16 Completed [facility] pediatric/adolescent 00:00:00 dosage Hib, Haemophilus 2002-01-16 Completed [facility] influenzae type b 00:00:00 vaccine, PRP-T conjugate DTaP, unspecified 2002-01-16 Completed [facility] formulation 00:00:00 Hib, Haemophilus 2001 Completed [facility] influenzae type b 00:00:00 vaccine, PRP-T conjugate DTaP, unspecified 2001 Completed [facility] formulation 00:00:00 Ipol Injection 2001 Completed [facility] Injectable 00:00:00 Hepatitis B, 2001 Completed [facility] pediatric/adolescent 00:00:00 dosage Hib, Haemophilus 2001 Completed [facility] influenzae type b 00:00:00 vaccine, PRP-T conjugate DTaP, unspecified 2001 Completed [facility] formulation 00:00:00 Ipol Injection 2001 Completed [facility] Injectable 00:00:00 Hepatitis B, 2001 Completed [facility] pediatric/adolescent 00:00:00 dosage Vital Signs Vital Name Observation Time Observation Value Comments Source BP Systolic 2021-12-15 10:38:00 117 mm[Hg] BP Diastolic 2021-12-15 10:38:00 83 mm[Hg] Weight Measured 2021-12-15 10:38:00 197.80 pounds Height Measured 2021-12-15 10:38:00 64.17 inches Body Temperature 2021-12-15 10:38:00 98.00 degrees Heart Rate 2021-12-15 10:38:00 84.00 /min Respiratory Rate 2021-12-15 10:38:00 16.00 /min BP Systolic 2021-08-18 09:03:00 133 mm[Hg] BP Diastolic 2021-08-18 09:03:00 82 mm[Hg] Weight Measured 2021-08-18 09:03:00 193.40 pounds Height Measured 2021-08-18 09:03:00 64.17 inches Body Temperature 2021-08-18 09:03:00 98.70 degrees Heart Rate 2021-08-18 09:03:00 87.00 /min Respiratory Rate 2021-08-18 09:03:00 16.00 /min BP Systolic 2021-06-11 09:27:00 115 mm[Hg] BP Diastolic 2021-06-11 09:27:00 80 mm[Hg] Weight Measured 2021-06-11 09:27:00 199.60 pounds Height Measured 2021-06-11 09:27:00 64.17 inches Body Temperature 2021-06-11 09:27:00 98.40 degrees Heart Rate 2021-06-11 09:27:00 89.00 /min Respiratory Rate 2021-06-11 09:27:00 16.00 /min BP Systolic 2021-05-03 13:27:00 BP Diastolic 2021-05-03 13:27:00 Weight Measured 2021-05-03 13:27:00 210.00 pounds Height Measured 2021-05-03 13:27:00 Body Temperature 2021-05-03 13:27:00 Heart Rate 2021-05-03 13:27:00 Respiratory Rate 2021-05-03 13:27:00 BP Systolic 2021-04-07 15:24:00 139 mm[Hg] BP Diastolic 2021-04-07 15:24:00 77 mm[Hg] Weight Measured 2021-04-07 15:24:00 200.60 pounds Height Measured 2021-04-07 15:24:00 64.17 inches Body Temperature 2021-04-07 15:24:00 97.40 degrees Heart Rate 2021-04-07 15:24:00 73.00 /min Respiratory Rate 2021-04-07 15:24:00 BP Systolic 2021-01-20 13:48:00 117 mm[Hg] BP Diastolic 2021-01-20 13:48:00 75 mm[Hg] Weight Measured 2021-01-20 13:48:00 175.20 pounds Height Measured 2021-01-20 13:48:00 64.17 inches Body Temperature 2021-01-20 13:48:00 98.80 degrees Heart Rate 2021-01-20 13:48:00 109.00 /min Respiratory Rate 2021-01-20 13:48:00 BP Systolic 2021-01-02 12:12:00 112 mm[Hg] BP Diastolic 2021-01-02 12:12:00 74 mm[Hg] Weight Measured 2021-01-02 12:12:00 175.00 pounds Height Measured 2021-01-02 12:12:00 63.00 inches Body Temperature 2021-01-02 12:12:00 98.80 degrees Heart Rate 2021-01-02 12:12:00 68.00 /min Respiratory Rate 2021-01-02 12:12:00 17.00 /min BP Systolic 2020-10-26 11:25:00 118 mm[Hg] BP Diastolic 2020-10-26 11:25:00 80 mm[Hg] Weight Measured 2020-10-26 11:25:00 174.20 pounds Height Measured 2020-10-26 11:25:00 63.00 inches Body Temperature 2020-10-26 11:25:00 98.50 degrees Heart Rate 2020-10-26 11:25:00 87.00 /min Respiratory Rate 2020-10-26 11:25:00 16.00 /min BP Systolic 2020-10-21 13:58:00 108 mm[Hg] BP Diastolic 2020-10-21 13:58:00 72 mm[Hg] Weight Measured 2020-10-21 13:58:00 168.60 pounds Height Measured 2020-10-21 13:58:00 63.00 inches Body Temperature 2020-10-21 13:58:00 98.20 degrees Heart Rate 2020-10-21 13:58:00 74.00 /min Respiratory Rate 2020-10-21 13:58:00 16.00 /min Procedures This patient has no known procedures. Plan of Care Planned Activity Planned Date Details Comments Source Goal Plan of Care Note [code = 09138-7] Goal Plan of Care Note [code = 84170-2] Goal Plan of Care Note [code = 95637-7] Goal Plan of Care Note [code = 88631-0] Goal Plan of Care Note [code = 75517-2] Goal Plan of Care Note [code = 18593-3] Goal Plan of Care Note [code = 60451-3] Goal Plan of Care Note [code = 29833-3] Goal Plan of Care Note [code = 45412-9] Goal Plan of Care Note [code = 84373-4] Goal Plan of Care Note [code = 73422-1] Goal Plan of Care Note [code = 55441-3] Goal Plan of Care Note [code = 85280-0] Goal Plan of Care Note [code = 21744-7] Goal Plan of Care Note [code = 21750-1] Goal Plan of Care Note [code = 36000-2] Goal Plan of Care Note [code = 91070-9] Goal Plan of Care Note [code = 81288-3] Goal Plan of Care Note [code = 95605-9] Goal Plan of Care Note [code = 99182-4] Goal Plan of Care Note [code = 04891-2] Encounters Start End Encounter Admission Attending Care Care Encounter Source Date/Time Date/Time Type Type Clinicians Facility Department ID 2022-03-24 2022-03-24 Outpatient [id number] 00:00:00 00:00:00 Visit [id number] 2018-05-08 2018-05-08 Christelle PAVON [facility] [id number] [place] 08:45:00 08:45:00 t; lorezno BROOKS [facility] Marlene Camargo i, M.D. 2018-05-01 2018-05-01 Christelle PAVON [facility] Orth[facility] [id number] [place] 09:30:00 09:30:00 t; lorenzo BROOKS [facility] Marlene Camargo i, M.D. Results Test Description Test Time Test Comments Results Result Comments Source VITAMIN D, 25 OH 2021-12-16 07:10:30 Test Item Value Reference Range Interpretation Comme nts VITAMIN D, 25 OH (test code 17 NG/ML SEE BELOW L NOTE: 25-HYDROXYVITAMIN D ASSAY = 4958) INCLUDES 25-HYD ROXYVITAMIN D2 AND D3. METHODOLOGY IS CHEMILUMINESCENT IMMUNOASSAY. INTERPRETIVE RANGES PED IATRIC (<17 YEARS) . . . . . . . . . . . NG/ML 20-100ADULT: INSUFFICIENT . . . . . . . . . . . . . . NG/ML <20 S UBOPTIMAL . . . . . . . . . . . . . . . NG/ML 20-29 OPTIMAL . . . . . . . . . . . . . . . . . NG/ML 30-100 UN LESS OTHERWISE INDICATED, ALL TESTING PERFORMED ATCLINICAL PATH [employer] [address] [place] [address], [place] [address] LABORATORY DIRE CTOR: PAPA BAH M.D. CLIA NUMBER [id number] [place] [id number] TSH, THIRD [id number] 04:12:07 Test Item Value Reference Range Interpretation Comments TSH, THIRD GENERATION (test code 4.500 UIU/ML 0.400-4.100 H = 2821) [id number] 00:00:00 Test Item Value Reference Range Interpretation Comments TSH, THIRD GENERATION (test code 4.500 UIU/ML = 2821) [id number] 00:00:00 Test Item Value Reference Range Interpretation Comments TSH, THIRD GENERATION (test code 4.500 UIU/ML = 2821) [id number] 00:00:00 Test Item Value Reference Range Interpretation Comments TSH, THIRD GENERATION (test code 4.500 UIU/ML = 2821) VITAMIN D, 25 [id number] 00:00:00 Test Item Value Reference Range Interpretation Comments VITAMIN D, 25 OH (test code = 4958) 17 NG/ML VITAMIN D, 25 [id number] 00:00:00 Test Item Value Reference Range Interpretation Comments VITAMIN D, 25 OH (test code = 4958) 17 NG/ML VAGINAL PATHOGENS DNA [id number] 15:04:06 Test Item Value Reference Range Interpretation Comments KRISTEN SPECIES (test code = 33309) POSITIVE NEGATIVE A G. VAGINALIS (test code = 89502) POSITIVE NEGATIVE A T. VAGINALIS (test code = 27107) NEGATIVE NEGATIVE HIV 1/2 4TH GEN, RFLX [id number] 03:50:51 Test Item Value Reference Range Interpretation Comments HIV 1/2 4TH GEN, RFLX CONF (test NON-REACTIVE NON-REACTIVE code = 3514) HEPATITIS PANEL, [id number] 03:50:51 Test Item Value Reference Range Interpretation Comments HEPATITIS A IgM (test NON-REACTIVE NON-REACTIVE code = 10670) HEPATITIS B CORE IgM NON-REACTIVE NON-REACTIVE (test code = 4644) HEPATITIS B SURF AG NON-REACTIVE NON-REACTIVE (test code = 2739) HEPATITIS C ANTIBODY NON-REACTIVE NON-REACTIVE (test code = 4675) INTERPRETATION (NOTE) Hepatitis A HEPATITIS A: (test code sero logy shows no = 2552) evidence of acu te hepatitis A. INTERPRETATION (NOTE) Hepatitis B HEPATITIS B: (test code sero logy shows no = 51607) evidence of acu te hepatitis B and no indication of exposure to hepatitis B vir us in the previous eugene eight months. INTERPRETATION (NOTE) Hepatitis C HEPATITIS C: (test code sero logy shows no = 66919) evidence of exposure to hepatitisC viru s at this time. I t can take up to 12 months after exposure tothe hepatitis C vir us for antibodies to become detectab le in the blood in certain patient s. [id number] 03:18:11 Test Item Value Reference Range Interpretation Comments RPR RESULT (test NON-REACTIVE NON-REACTIVE code = 3501) RPR TITER (test NOT INDIC. NOT INDIC. UNLESS OTHE RWISE code = 3500) TITER INDICATED, ALL TESTING PERFORMED [facility] PATHOLOGY [facility] [address] [place] [address] 4 LABORATORY DIRE CTOR: PAPA DWYER M.D. CLIA NUMBER [id number] [facility] [id number] HIV AB/AG COMBO RFLX [id number] 00:00:00 Test Item Value Reference Range Interpretation Comments HIV 1/2 4TH GEN, RFLX CONF (test NON-REACTIVE code = 3514) HIV AB/AG COMBO RFLX [id number] 00:00:00 Test Item Value Reference Range Interpretation Comments HIV 1/2 4TH GEN, RFLX CONF (test NON-REACTIVE code = 3514) VAGINAL PATHOGENS DNA [id number] 00:00:00 Test Item Value Reference Range Interpretation Comments KRISTEN SPECIES (test code = ) POSITIVE G. VAGINALIS (test code = 02998) POSITIVE T. VAGINALIS (test code = 24955) NEGATIVE VAGINAL PATHOGENS DNA [id number] 00:00:00 Test Item Value Reference Range Interpretation Comments KRISTEN SPECIES (test code = 47595) POSITIVE G. VAGINALIS (test code = 85131) POSITIVE T. VAGINALIS (test code = 55062) NEGATIVE ACUTE HEPATITIS [id number] 00:00:00 Test Item Value Reference Range Interpretation Comments HEPATITIS A IgM (test code = NON-REACTIVE 93888) HEPATITIS B CORE IgM (test code NON-REACTIVE = 4644) HEPATITIS B SURF AG (test code = NON-REACTIVE 4759) HEPATITIS C ANTIBODY (test code NON-REACTIVE = 4675) INTERPRETATION HEPATITIS A: (NOTE) (test code = 2552) INTERPRETATION HEPATITIS B: (NOTE) (test code = 99130) INTERPRETATION HEPATITIS C: (NOTE) (test code = 59818) ACUTE HEPATITIS [id number] 00:00:00 Test Item Value Reference Range Interpretation Comments HEPATITIS A IgM (test code = NON-REACTIVE 70976) HEPATITIS B CORE IgM (test code NON-REACTIVE = 4644) HEPATITIS B SURF AG (test code = NON-REACTIVE 2739) HEPATITIS C ANTIBODY (test code NON-REACTIVE = 4675) INTERPRETATION HEPATITIS A: (NOTE) (test code = 2552) INTERPRETATION HEPATITIS B: (NOTE) (test code = 96331) INTERPRETATION HEPATITIS C: (NOTE) (test code = 99770) [id number] 00:00:00 Test Item Value Reference Range Interpretation Comments RPR RESULT (test code = NON-REACTIVE 3501) RPR TITER (test code = 3500) NOT INDIC. TITER [id number] 00:00:00 Test Item Value Reference Range Interpretation Comments RPR RESULT (test code = NON-REACTIVE 3501) RPR TITER (test code = 3500) NOT INDIC. TITER [id number] 00:00:00 Test Item Value Reference Range Interpretation Comments RPR RESULT (test code = NON-REACTIVE 3501) RPR TITER (test code = 3500) NOT INDIC. TITER SARS-CoV-2 (COVID-19), RT-PCR/[id number] 17:22:51 Test Item Value Reference Interpretation Comments Range SARS-CoV-2 POSITIVE SEE NOTE A SARS-CoV-2 RNA INTERPRETATION DETECTEDPosit latosha results (test code = [place] [address]) presence of SARAH BETH S-CoV-2 RNA;clinical co rrelation with patient hi story and other diagnosticinfor mation is necessary to de termine patient infecti on status.Positive results do not rule out bacterial infec tion or co-infectionwit h other viruses. Positi ve and negative predic tive values oftestin g are highly dependen t on prevalence. SOURCE (test code NASOPHARYNGEAL Note: M ethodology is = 72250) Lisa Reid Beth l-Time RT-PCR. The exp ected result or refer ence range is NEGATI VE (Not Detected). For more information reg tami COVID-19 testin g to include clinicalinforma tion, methodology det ail, intended use, F DA authorization andrecommended fact sheets for sarah ents or healthcare prov iders, see NewTest Announcement: S ARS-CoV-2 (COVID-19) by Edith SINGLETON at URL below (note ,fact sheets are prov ided by method given in report:[email or web address] Alternatively, see downloadable PD F fact sheet at:[email or web address]- PCR UNLESS OTHERWIS E INDICATED, ALL TESTING PERFORMED [facility] PATHOLOGY [facility], [facility]. [address] [place] [address] 4 LABORATORY DIRE CTOR: PAPA DWYER M.D. CLIA NUMBER [id number] [place] [id number] SARS-CoV-2 (COVID-19) by RT-PCR (HIGH RISK)2021-07-11 00:00:00 Test Item Value Reference Range Interpretation Comments SARS-CoV-2 INTERPRETATION POSITIVE (test code = 72420) SOURCE (test code = 59804) NASOPHARYNGEAL SARS-CoV-2 (COVID-19) by RT-PCR (HIGH RISK)2021-07-11 00:00:00 Test Item Value Reference Range Interpretation Comments SARS-CoV-2 INTERPRETATION POSITIVE (test code = 95651) SOURCE (test code = 47296) NASOPHARYNGEAL [id number] 00:00:00 Test Item Value Reference Range Interpretation Comments TSH, THIRD GENERATION (test code 3.940 UIU/ML = 2821) [id number] 00:00:00 Test Item Value Reference Range Interpretation Comments TSH, THIRD GENERATION (test code 3.940 UIU/ML = 2821) [id number] 00:00:00 Test Item Value Reference Range Interpretation Comments TSH, THIRD GENERATION (test code 3.940 UIU/ML = 2821) T3 [id number] 00:00:00 Test Item Value Reference Range Interpretation Comments T3 TOTAL (test code = 2818) 135 NG/DL T3 [id number] 00:00:00 Test Item Value Reference Range Interpretation Comments T3 TOTAL (test code = 2818) 135 NG/DL T3 [id number] 00:00:00 Test Item Value Reference Range Interpretation Comments T3 TOTAL (test code = 2818) 135 NG/DL T4 (THYROXINE)2021-06-12 00:00:00 Test Item Value Reference Range Interpretation Comments T4 (THYROXINE) (test code = 2819) 6.9 UG/DL T4 (THYROXINE)2021-06-12 00:00:00 Test Item Value Reference Range Interpretation Comments T4 (THYROXINE) (test code = 2819) 6.9 UG/DL VALPROIC [id number] 00:00:00 Test Item Value Reference Range Interpretation Comments VALPROIC ACID (test code = 3025) 43.2 UG/ML VALPROIC [id number] 00:00:00 Test Item Value Reference Range Interpretation Comments VALPROIC ACID (test code = 3025) 43.2 UG/ML CBC W/AUTO [id number] 00:00:00 Test Item Value Reference Range Interpretation Comments WBC (test code = 1001) 7.8 K/UL RBC (test code = 1002) 4.37 M/UL HEMOGLOBIN (test code = 1003) 13.3 G/DL HEMATOCRIT (test code = 1004) 37.7 % MCV (test code = 1005) 86.3 fL MCH (test code = 1006) 30.4 PG MCHC (test code = 1007) 35.3 G/DL RDW (test code = 1038) 12.0 % NEUTROPHILS (test code = 1008) 61.7 % LYMPHOCYTES (test code = 1010) 28.4 % MONOCYTES (test code = 1011) 7.2 % EOSINOPHILS (test code = 1012) 1.8 % BASOPHILS (test code = 1013) 0.6 % IMMATURE GRANYLOCYTES (test 0.3 % code = 1036) NUCLEATED RBCS (test code = 0.0 /100WBC'S 1065) PLATELET COUNT (test code = 296 K/UL 1015) ABSOLUTE NEUTROPHILS (test code 4.82 K/UL = 1066) ABSOLUTE LYMPHOCYTES (test code 2.22 K/UL = 1067) ABSOLUTE MONOCYTES (test code = 0.56 K/UL 1068) ABSOLUTE EOSINOPHILS (test code 0.14 K/UL = 1040) ABSOLUTE BASOPHILS (test code = 0.05 K/UL 1069) ABS IMMATURE GRANULOCYTES (test 0.02 K/UL code = 1020) ABS NUCLEATED RBCS (test code = 0.00 K/UL 91934) CBC W/AUTO [id number] 00:00:00 Test Item Value Reference Range Interpretation Comments WBC (test code = 1001) 7.8 K/UL RBC (test code = 1002) 4.37 M/UL HEMOGLOBIN (test code = 1003) 13.3 G/DL HEMATOCRIT (test code = 1004) 37.7 % MCV (test code = 1005) 86.3 fL MCH (test code = 1006) 30.4 PG MCHC (test code = 1007) 35.3 G/DL RDW (test code = 1038) 12.0 % NEUTROPHILS (test code = 1008) 61.7 % LYMPHOCYTES (test code = 1010) 28.4 % MONOCYTES (test code = 1011) 7.2 % EOSINOPHILS (test code = 1012) 1.8 % BASOPHILS (test code = 1013) 0.6 % IMMATURE GRANYLOCYTES (test 0.3 % code = 1036) NUCLEATED RBCS (test code = 0.0 /100WBC'S 1065) PLATELET COUNT (test code = 296 K/UL 1015) ABSOLUTE NEUTROPHILS (test code 4.82 K/UL = 1066) ABSOLUTE LYMPHOCYTES (test code 2.22 K/UL = 1067) ABSOLUTE MONOCYTES (test code = 0.56 K/UL 1068) ABSOLUTE EOSINOPHILS (test code 0.14 K/UL = 1040) ABSOLUTE BASOPHILS (test code = 0.05 K/UL 1069) ABS IMMATURE GRANULOCYTES (test 0.02 K/UL code = 1020) ABS NUCLEATED RBCS (test code = 0.00 K/UL 45556) CBC W/AUTO [id number] 00:00:00 Test Item Value Reference Range Interpretation Comments WBC (test code = 1001) 7.8 K/UL RBC (test code = 1002) 4.37 M/UL HEMOGLOBIN (test code = 1003) 13.3 G/DL HEMATOCRIT (test code = 1004) 37.7 % MCV (test code = 1005) 86.3 fL MCH (test code = 1006) 30.4 PG MCHC (test code = 1007) 35.3 G/DL RDW (test code = 1038) 12.0 % NEUTROPHILS (test code = 1008) 61.7 % LYMPHOCYTES (test code = 1010) 28.4 % MONOCYTES (test code = 1011) 7.2 % EOSINOPHILS (test code = 1012) 1.8 % BASOPHILS (test code = 1013) 0.6 % IMMATURE GRANYLOCYTES (test 0.3 % code = 1036) NUCLEATED RBCS (test code = 0.0 /100WBC'S 1065) PLATELET COUNT (test code = 296 K/UL 1015) ABSOLUTE NEUTROPHILS (test code 4.82 K/UL = 1066) ABSOLUTE LYMPHOCYTES (test code 2.22 K/UL = 1067) ABSOLUTE MONOCYTES (test code = 0.56 K/UL 1068) ABSOLUTE EOSINOPHILS (test code 0.14 K/UL = 1040) ABSOLUTE BASOPHILS (test code = 0.05 K/UL 1069) ABS IMMATURE GRANULOCYTES (test 0.02 K/UL code = 1020) ABS NUCLEATED RBCS (test code = 0.00 K/UL 39174) LIPID [id number] 00:00:00 Test Item Value Reference Range Interpretation Comments CHOLESTEROL (test code = 2210) 140 MG/DL TRIGLYCERIDES (test code = 2232) 98 MG/DL HDL CHOLESTEROL (test code = 2220) 45 MG/DL CALC LDL CHOL (test code = 2237) 77 MG/DL RISK RATIO LDL/HDL (test code = 1.71 RATIO 2238) LIPID [id number] 00:00:00 Test Item Value Reference Range Interpretation Comments CHOLESTEROL (test code = 2210) 140 MG/DL TRIGLYCERIDES (test code = 2232) 98 MG/DL HDL CHOLESTEROL (test code = 2220) 45 MG/DL CALC LDL CHOL (test code = 2237) 77 MG/DL RISK RATIO LDL/HDL (test code = 1.71 RATIO 2238) COMPREHENSIVE METABOLIC [id number] 00:00:00 Test Item Value Reference Range Interpretation Comments GLUCOSE (test code = 2217) 106 MG/DL BUN (test code = 2208) 11 MG/DL CREATININE (test code = 2214) 0.66 MG/DL eGFR AMER. (test code 147 ML/MIN/1.73 = 11820) eGFR NON- AMER. (test 127 ML/MIN/1.73 code = 51482) CALC BUN/CREAT (test code = 17 RATIO 2235) SODIUM (test code = 2231) 142 MEQ/L POTASSIUM (test code = 2228) 4.3 MEQ/L CHLORIDE (test code = 2215) 105 MEQ/L CARBON DIOXIDE (test code = 26 MEQ/L 2205) CALCIUM (test code = 2209) 9.3 MG/DL PROTEIN, TOTAL (test code = 6.9 G/DL 2228) ALBUMIN (test code = 2201) 4.4 G/DL CALC GLOBULIN (test code = 2.5 G/DL 2240) CALC A/G RATIO (test code = 1.8 RATIO 2234) BILIRUBIN, TOTAL (test code = <0.2 MG/DL 2206) ALKALINE PHOSPHATASE (test 76 U/L code = 2204) AST (test code = 2218) 18 U/L ALT (test code = 2219) 16 U/L COMPREHENSIVE METABOLIC [id number] 00:00:00 Test Item Value Reference Range Interpretation Comments GLUCOSE (test code = 2217) 106 MG/DL BUN (test code = 2208) 11 MG/DL CREATININE (test code = 2214) 0.66 MG/DL eGFR AMER. (test code 147 ML/MIN/1.73 = 74070) eGFR NON- AMER. (test 127 ML/MIN/1.73 code = 08828) CALC BUN/CREAT (test code = 17 RATIO 2235) SODIUM (test code = 2231) 142 MEQ/L POTASSIUM (test code = 2228) 4.3 MEQ/L CHLORIDE (test code = 2215) 105 MEQ/L CARBON DIOXIDE (test code = 26 MEQ/L 2205) CALCIUM (test code = 2209) 9.3 MG/DL PROTEIN, TOTAL (test code = 6.9 G/DL 2228) ALBUMIN (test code = 2201) 4.4 G/DL CALC GLOBULIN (test code = 2.5 G/DL 2240) CALC A/G RATIO (test code = 1.8 RATIO 2234) BILIRUBIN, TOTAL (test code = <0.2 MG/DL 2206) ALKALINE PHOSPHATASE (test 76 U/L code = 2204) AST (test code = 2218) 18 U/L ALT (test code = 2219) 16 U/L VITAMIN D, 25 [id number] 00:00:00 Test Item Value Reference Range Interpretation Comments VITAMIN D, 25 OH (test code = 4958) 18 NG/ML VITAMIN D, 25 [id number] 00:00:00 Test Item Value Reference Range Interpretation Comments VITAMIN D, 25 OH (test code = 4958) 18 NG/ML [id number] 00:00:00 Test Item Value Reference Range Interpretation Comments TSH, THIRD GENERATION (test code 5.450 UIU/ML = 2821) [id number] 00:00:00 Test Item Value Reference Range Interpretation Comments TSH, THIRD GENERATION (test code 5.450 UIU/ML = 2821) [id number] 00:00:00 Test Item Value Reference Range Interpretation Comments TSH, THIRD GENERATION (test code 5.450 UIU/ML = 2821) FREE 00:00:00 Test Item Value Reference Range Interpretation Comments FREE T3 (test code = 4273) 3.5 PG/ML FREE 00:00:00 Test Item Value Reference Range Interpretation Comments FREE T3 (test code = 4273) 3.5 PG/ML FREE T4 (THYROXINE)2021-04-08 00:00:00 Test Item Value Reference Range Interpretation Comments FREE T4 (THYROXINE) (test code = 0.91 NG/DL 2823) FREE T4 (THYROXINE)2021-04-08 00:00:00 Test Item Value Reference Range Interpretation Comments FREE T4 (THYROXINE) (test code = 0.91 NG/DL 2823) FREE T4 (THYROXINE)2021-04-08 00:00:00 Test Item Value Reference Range Interpretation Comments FREE T4 (THYROXINE) (test code = 0.91 NG/DL 2823) CBC W/AUTO [id number] 00:00:00 Test Item Value Reference Range Interpretation Comments WBC (test code = 1001) 7.9 K/UL RBC (test code = 1002) 4.39 M/UL HEMOGLOBIN (test code = 1003) 12.8 G/DL HEMATOCRIT (test code = 1004) 37.7 % MCV (test code = 1005) 85.9 fL MCH (test code = 1006) 29.2 PG MCHC (test code = 1007) 34.0 G/DL RDW (test code = 1038) 12.4 % NEUTROPHILS (test code = 1008) 56.0 % LYMPHOCYTES (test code = 1010) 30.1 % MONOCYTES (test code = 1011) 10.1 % EOSINOPHILS (test code = 1012) 2.7 % BASOPHILS (test code = 1013) 0.6 % IMMATURE GRANULOCYTES (test 0.5 % code = 1036) NUCLEATED RBCS (test code = 0.0 /100WBC'S 1065) PLATELET COUNT (test code = 248 K/UL 1015) ABSOLUTE NEUTROPHILS (test code 4.40 K/UL = 1066) ABSOLUTE LYMPHOCYTES (test code 2.36 K/UL = 1067) ABSOLUTE MONOCYTES (test code = 0.79 K/UL 1068) ABSOLUTE EOSINOPHILS (test code 0.21 K/UL = 1040) ABSOLUTE BASOPHILS (test code = 0.05 K/UL 1069) ABS IMMATURE GRANULOCYTES (test 0.04 K/UL code = 1020) ABS NUCLEATED RBCS (test code = 0.00 K/UL 32958) CBC W/AUTO [id number] 00:00:00 Test Item Value Reference Range Interpretation Comments WBC (test code = 1001) 7.9 K/UL RBC (test code = 1002) 4.39 M/UL HEMOGLOBIN (test code = 1003) 12.8 G/DL HEMATOCRIT (test code = 1004) 37.7 % MCV (test code = 1005) 85.9 fL MCH (test code = 1006) 29.2 PG MCHC (test code = 1007) 34.0 G/DL RDW (test code = 1038) 12.4 % NEUTROPHILS (test code = 1008) 56.0 % LYMPHOCYTES (test code = 1010) 30.1 % MONOCYTES (test code = 1011) 10.1 % EOSINOPHILS (test code = 1012) 2.7 % BASOPHILS (test code = 1013) 0.6 % IMMATURE GRANULOCYTES (test 0.5 % code = 1036) NUCLEATED RBCS (test code = 0.0 /100WBC'S 1065) PLATELET COUNT (test code = 248 K/UL 1015) ABSOLUTE NEUTROPHILS (test code 4.40 K/UL = 1066) ABSOLUTE LYMPHOCYTES (test code 2.36 K/UL = 1067) ABSOLUTE MONOCYTES (test code = 0.79 K/UL 1068) ABSOLUTE EOSINOPHILS (test code 0.21 K/UL = 1040) ABSOLUTE BASOPHILS (test code = 0.05 K/UL 1069) ABS IMMATURE GRANULOCYTES (test 0.04 K/UL code = 1020) ABS NUCLEATED RBCS (test code = 0.00 K/UL 78443) CBC W/AUTO [id number] 00:00:00 Test Item Value Reference Range Interpretation Comments WBC (test code = 1001) 7.9 K/UL RBC (test code = 1002) 4.39 M/UL HEMOGLOBIN (test code = 1003) 12.8 G/DL HEMATOCRIT (test code = 1004) 37.7 % MCV (test code = 1005) 85.9 fL MCH (test code = 1006) 29.2 PG MCHC (test code = 1007) 34.0 G/DL RDW (test code = 1038) 12.4 % NEUTROPHILS (test code = 1008) 56.0 % LYMPHOCYTES (test code = 1010) 30.1 % MONOCYTES (test code = 1011) 10.1 % EOSINOPHILS (test code = 1012) 2.7 % BASOPHILS (test code = 1013) 0.6 % IMMATURE GRANULOCYTES (test 0.5 % code = 1036) NUCLEATED RBCS (test code = 0.0 /100WBC'S 1065) PLATELET COUNT (test code = 248 K/UL 1015) ABSOLUTE NEUTROPHILS (test code 4.40 K/UL = 1066) ABSOLUTE LYMPHOCYTES (test code 2.36 K/UL = 1067) ABSOLUTE MONOCYTES (test code = 0.79 K/UL 1068) ABSOLUTE EOSINOPHILS (test code 0.21 K/UL = 1040) ABSOLUTE BASOPHILS (test code = 0.05 K/UL 1069) ABS IMMATURE GRANULOCYTES (test 0.04 K/UL code = 1020) ABS NUCLEATED RBCS (test code = 0.00 K/UL 28577) COMPREHENSIVE METABOLIC [id number] 00:00:00 Test Item Value Reference Range Interpretation Comments GLUCOSE (test code = 2217) 83 MG/DL BUN (test code = 2208) 14 MG/DL CREATININE (test code = 2214) 0.66 MG/DL eGFR AMER. (test code 148 ML/MIN/1.73 = 78416) eGFR NON- AMER. (test 128 ML/MIN/1.73 code = 36927) CALC BUN/CREAT (test code = 21 RATIO 2235) SODIUM (test code = 2231) 139 MEQ/L POTASSIUM (test code = 2228) 4.1 MEQ/L CHLORIDE (test code = 2215) 103 MEQ/L CARBON DIOXIDE (test code = 22 MEQ/L 2206) CALCIUM (test code = 2209) 9.1 MG/DL PROTEIN, TOTAL (test code = 6.5 G/DL 222) ALBUMIN (test code = 2201) 4.4 G/DL CALC GLOBULIN (test code = 2.1 G/DL 2240) CALC A/G RATIO (test code = 2.1 RATIO 2234) BILIRUBIN, TOTAL (test code = 0.2 MG/DL 2206) ALKALINE PHOSPHATASE (test 76 U/L code = 2204) AST (test code = 2218) 26 U/L ALT (test code = 2219) 37 U/L COMPREHENSIVE METABOLIC [id number] 00:00:00 Test Item Value Reference Range Interpretation Comments GLUCOSE (test code = 2217) 83 MG/DL BUN (test code = 2208) 14 MG/DL CREATININE (test code = 2214) 0.66 MG/DL eGFR AMER. (test code 148 ML/MIN/1.73 = 45208) eGFR NON- AMER. (test 128 ML/MIN/1.73 code = 43336) CALC BUN/CREAT (test code = 21 RATIO 2235) SODIUM (test code = 2231) 139 MEQ/L POTASSIUM (test code = 2228) 4.1 MEQ/L CHLORIDE (test code = 2215) 103 MEQ/L CARBON DIOXIDE (test code = 22 MEQ/L 2206) CALCIUM (test code = 2209) 9.1 MG/DL PROTEIN, TOTAL (test code = 6.5 G/DL 2228) ALBUMIN (test code = 2201) 4.4 G/DL CALC GLOBULIN (test code = 2.1 G/DL 2240) CALC A/G RATIO (test code = 2.1 RATIO 2234) BILIRUBIN, TOTAL (test code = 0.2 MG/DL 2206) ALKALINE PHOSPHATASE (test 76 U/L code = 2204) AST (test code = 2218) 26 U/L ALT (test code = 2219) 37 U/L [id number] 00:00:00 Test Item Value Reference Range Interpretation Comments TSH, THIRD GENERATION (test 18.800 UIU/ML code = 2821) [id number] 00:00:00 Test Item Value Reference Range Interpretation Comments TSH, THIRD GENERATION (test 18.800 UIU/ML code = 2821) [id number] 00:00:00 Test Item Value Reference Range Interpretation Comments TSH, THIRD GENERATION (test 18.800 UIU/ML code = 2821) LIPID [id number] 00:00:00 Test Item Value Reference Range Interpretation Comments CHOLESTEROL (test code = 2210) 142 MG/DL TRIGLYCERIDES (test code = 2232) 82 MG/DL HDL CHOLESTEROL (test code = 2220) 54 MG/DL CALC LDL CHOL (test code = 2237) 72 MG/DL RISK RATIO LDL/HDL (test code = 1.33 RATIO 2238) LIPID [id number] 00:00:00 Test Item Value Reference Range Interpretation Comments CHOLESTEROL (test code = 2210) 142 MG/DL TRIGLYCERIDES (test code = 2232) 82 MG/DL HDL CHOLESTEROL (test code = 2220) 54 MG/DL CALC LDL CHOL (test code = 2237) 72 MG/DL RISK RATIO LDL/HDL (test code = 1.33 RATIO 2238) VALPROIC [id number] 00:00:00 Test Item Value Reference Range Interpretation Comments VALPROIC ACID (test code = 3025) 46.7 UG/ML VALPROIC [id number] 00:00:00 Test Item Value Reference Range Interpretation Comments VALPROIC ACID (test code = 3025) 46.7 UG/ML VALPROIC [id number] 00:00:00 Test Item Value Reference Range Interpretation Comments VALPROIC ACID (test code = 3025) 72.2 UG/ML VALPROIC [id number] 00:00:00 Test Item Value Reference Range Interpretation Comments VALPROIC ACID (test code = 3025) 72.2 UG/ML LIPID [id number] 00:00:00 Test Item Value Reference Range Interpretation Comments CHOLESTEROL (test code = 2210) 135 MG/DL TRIGLYCERIDES (test code = 2232) 111 MG/DL HDL CHOLESTEROL (test code = 2220) 51 MG/DL CALC LDL CHOL (test code = 2237) 65 MG/DL RISK RATIO LDL/HDL (test code = 1.27 RATIO 2238) LIPID [id number] 00:00:00 Test Item Value Reference Range Interpretation Comments CHOLESTEROL (test code = 2210) 135 MG/DL TRIGLYCERIDES (test code = 2232) 111 MG/DL HDL CHOLESTEROL (test code = 2220) 51 MG/DL CALC LDL CHOL (test code = 2237) 65 MG/DL RISK RATIO LDL/HDL (test code = 1.27 RATIO 2238) VITAMIN D, 25 [id number] 00:00:00 Test Item Value Reference Range Interpretation Comments VITAMIN D, 25 OH (test code = 4958) 25 NG/ML VITAMIN D, 25 [id number] 00:00:00 Test Item Value Reference Range Interpretation Comments VITAMIN D, 25 OH (test code = 4958) 25 NG/ML VITAMIN [id number] 00:00:00 Test Item Value Reference Range Interpretation Comments VITAMIN B-12 (test code = 2840) 481 PG/ML VITAMIN [id number] 00:00:00 Test Item Value Reference Range Interpretation Comments VITAMIN B-12 (test code = 2840) 481 PG/ML VITAMIN [id number] 00:00:00 Test Item Value Reference Range Interpretation Comments VITAMIN B-12 (test code = 2840) 481 PG/ML CHLAMYDIA, AMPLIFIED, [id number] 00:00:00 Test Item Value Reference Range Interpretation Comments CHLAMYDIA, NAAT (test code = 69976) NEGATIVE CHLAMYDIA, AMPLIFIED, [id number] 00:00:00 Test Item Value Reference Range Interpretation Comments CHLAMYDIA, NAAT (test code = 29433) NEGATIVE GC, AMPLIFIED, [id number] 00:00:00 Test Item Value Reference Range Interpretation Comments GONORRHEA, NAAT (test code = 56514) NEGATIVE GC, AMPLIFIED, [id number] 00:00:00 Test Item Value Reference Range Interpretation Comments GONORRHEA, NAAT (test code = 88741) NEGATIVE VAGINAL PATHOGENS DNA [id number] 00:00:00 Test Item Value Reference Range Interpretation Comments KRISTEN SPECIES (test code = 82155) NEGATIVE G. VAGINALIS (test code = 29061) NEGATIVE T. VAGINALIS (test code = 52046) NEGATIVE VAGINAL PATHOGENS DNA [id number] 00:00:00 Test Item Value Reference Range Interpretation Comments KRISTEN SPECIES (test code = 70667) NEGATIVE G. VAGINALIS (test code = 79221) NEGATIVE T. VAGINALIS (test code = 60210) NEGATIVE SURGICAL [id number] 07:49:00 RUN DATE: 08/24/18 [facility] *LIVE* PAGE 1 RUN TIME: 748 Specimen Inquiry RUN USER: INTERFACE --------- ---PATIENT: MARCO WYLIE LOC: ED U #: [id number] AGE/SX: / ROOM: RE08/20/18[facility] DR: Rajendra Salas MD : 01 BED: DIS: [place] [facility] [place] SPEC #: [id number] RECD: 08/20/18 STATUS:JENNA REQ #: [id number] MARVIN: 08/20/[address]: Rajendra Salas MD ENTERED: 08/22/18 SP TYPE: SURG SPEC OTHR DR: Gregory Thompson MD ORDERED: LEVEL 4 CODES: [id number] - ESOPHAGUS, NOS [id number] - STOMACH, NOS [id number] - SMALL INTESTINE COPIES TO: Rajendra Salas MD [address] [place] [id number] Gregory Thompson MD [address] [place] [address] PROCEDURES: LEVEL 4 (Incomplete) TISSUES: 1. SMALL INTESTINE, [...] ON NEXT PAGE RUN DATE: 08/24/18 [facility] *LIVE* PAGE 2 RUN TIME: 748 Specimen Inquiry RUN USER: INTERFACE -------- ----SPEC #: [id number] PATIENT: MARCO WYLIE #[id number] (Continued) GROSS AND MICROSCOPIC GROSS EXAMINATION: Received is/are [...] of pink-mckeon tissue, measuring up to 0.3 cm.in greatest dimension each (D). MICROSCOPIC EXAMINATION: Sections of the "Small intestine, duodenum,bx." reveal changes of mild chronic duodenitis. The immunostain for CD3 does not show an increase inCD3 cells in the epithelium. Controls appropriate. Sections of the "Stomach, bx." reveal changes ofmild chronic gastritis. The lamina propria contains a [...] appropriately positive/negative). Sections of the "Esophagus, mid, bx."reveal changes of acanthosis and chronic inflammation. These changes are consistent with reflux esophagitis. The Alcian blue/PAS stain does not show specialized intestinal metaplasia. No definite evidence of malignancy is identified. (When special stains have been reviewed, the appropriate positive/negative controls have been reviewed and are appropriately positive/negative). POST-OP DIAGNOSIS Duodenitis, gastritis CONTINUED ON NEXT PAGE RUN DATE: 08/24/18 [facility] *LIVE* PAGE 3 RUN TIME: 748 Specimen Inquiry RUN USER: INTERFACE SPEC #: [id number] PATIENT: MARCO WYLIE #[id number] (Continued)--- --------- PRE-OP DIAGNOSIS Abdominal pain Signed SIGNATURE ON FILE Sonia Kennedy MD 08/24/18 0749 END OF REPORT CBC W/AUTO [id number] 09:10:00 Test Item Value Reference Range Interpretation Comments WHITE BLOOD CELL (test code = 7.73 x10 3/uL 4.5-13.0 N WBC) RED BLOOD CELL (test code = 4.47 x10 6/uL 4.2-5.4 N RBC) HEMOGLOBIN (test code = HGB) 12.5 g/dL 11.1-15.7 N HEMATOCRIT (test code = HCT) 40.4 % 34.0-44.0 N MEAN CELL VOLUME (test code = 90.4 fL 77.0-87.0 H MCV) MEAN CELL HGB (test code = MCH) 28.0 pg 26.0-30.0 N MEAN CELL HGB CONCETRATION 30.9 g/dL 32.0-36.0 L (test code = MCHC) RED CELL DISTRIBUTION WIDTH CV 11.9 % 11.5-14.5 N (test code = RDW) RED CELL DISTRIBUTION WIDTH SD 39.2 fL 37.0-54.0 N (test code = RDW-SD) PLATELET COUNT (test code = 288 x10 3/uL 150-450 N PLT) MEAN PLATELET VOLUME (test code 11.6 fL 7.0-9.0 H = MPV) NEUTROPHIL % (test code = NT%) 63.2 % 32.0-54.0 H IMMATURE GRANULOCYTE % (test 0.3 % 0.0-2.0 N code = IG%) LYMPHOCYTE % (test code = LY%) 24.5 % 28.0-48.0 L MONOCYTE % (test code = MO%) 7.8 % 3.0-15.0 N EOSINOPHIL % (test code = EO%) 3.6 % 1.0-8.0 N BASOPHIL % (test code = BA%) 0.6 % 0.0-2.0 N NUCLEATED RBC % (test code = 0.0 % 0-0 N NRBC%) NEUTROPHIL # (test code = NT#) 4.89 x10 3/uL 2.0-3.2 H IMMATURE GRANULOCYTE # (test 0.02 x10 3/uL 0.00-0.03 N code = IG#) LYMPHOCYTE # (test code = LY#) 1.89 x10 3/uL 1.0-3.8 N MONOCYTE # (test code = MO#) 0.60 x10 3/uL 0.1-0.8 N EOSINOPHIL # (test code = EO#) 0.28 x10 3/uL 0.0-0.4 N BASOPHIL # (test code = BA#) 0.05 x10 3/uL 0.0-0.2 N NUCLEATED RBC # (test code = 0.00 x10 3/uL 0.0-0.1 N NRBC#) MANUAL DIFF REQUIRED (test code NO = MDIFF) HCG SERUM [id number] 09:09:00 Test Item Value Reference Range Interpretation Comments HCG SERUM QUAL (test code = SERUM NEGATIVE NEGATIVE HCGQL)
[2022-03-28] MEDS ORDERED: IBUPROFEN 400 MG TAB ONE (00:57)
--- NOTE | 2022-03-28 01:56 | EDPHYS ---
Physician Documentation [facility] Name: Rissa Sales Age: 22 yrs Sex: Female : 2000 Arrival Date: 03/27/2022 Time: 23:59 Bed 2 Private MD: ED Physician Ynes Jansen HPI: 03/28 00:50 This 22 yrs old Female presents to ER via Ambulatory with complaints of Shortness Of sd2 Breath, Cough. 00:50 22 yo F presents with CC of cough that has been ongoing since Monday this week. pt sd2 seen for televisit on with negative COVID and strep testing. States PCP told her he would call in cough medication but never did. Reports progressively worsening cough since then with fever. Initially had sore throat which has since resolved. Pt reports body aches as well but has not tried any OTC medications for her symptoms prior to arrival.. Historical: - Allergies: 00:07 Lexapro; hb - PMHx: 00:07 Depression; hb - Immunization history:: Adult Immunizations up to date. - Social history:: Smoking status: Patient denies any tobacco usage or history of. ROS: 00:50 Eyes: Negative for injury, pain, redness, and discharge, ENT: Negative for injury, sd2 pain, and discharge, Cardiovascular: Negative for chest pain, palpitations, and edema, Respiratory: Positive for shortness of breath, cough. Negative for wheezing. Abdomen/GI: Negative for abdominal pain, nausea, vomiting, diarrhea. MS/Extremity: Negative for injury and deformity, Skin: Negative for injury, rash, and discoloration, Neuro: Negative for headache, numbness and tingling. 00:50 Constitutional: Positive for body aches, chills, fever, Negative for poor PO intake. Exam: 00:50 Constitutional: This is a well developed, well nourished patient who is awake, alert, sd2 and in no acute distress. Head/Face: Normocephalic, atraumatic. Eyes: EOMI, normal conjunctiva bilaterally ENT: Nares patent. No nasal discharge, no septal abnormalities noted. Tympanic membranes are normal and external auditory canals are clear. Oropharynx with no redness, swelling, or masses, exudates, or evidence of obstruction, uvula midline. Mucous membranes moist. Chest/axilla: Normal chest wall appearance and motion. Nontender with no deformity. Cardiovascular: Regular rate and rhythm with a normal S1 and S2. No gallops, murmurs, or rubs. 2+ distal pulses. Respiratory: Lungs have equal breath sounds bilaterally, clear to auscultation and percussion. No rales, rhonchi or wheezes noted. No increased work of breathing, no retractions or nasal flaring. Abdomen/GI: Soft, non-tender, with normal bowel sounds. No guarding or rebound. No evidence of tenderness throughout. Skin: Warm, dry with normal turgor. Normal color with no rashes, no lesions, and no evidence of cellulitis. MS/ Extremity: Pulses equal, no cyanosis. Neurovascular intact. Full, normal range of motion. Ambulatory without difficulty. Psych: Awake, alert, with orientation to person, place and time. Behavior, mood, and affect are within normal limits. 01:16 ECG was reviewed by the Attending Physician. NSR, rate 80, no STEMI criteria sd2 Vital Signs: 00:02 BP 143 / 103; Pulse 89; Resp 18; Temp 100.4(TE); Pulse Ox 99% on R/A; Weight 89.36 kg; hb Height 5 ft. 4 in. (162.56 cm); Pain 5/10; 00:33 BP 140 / 90; Pulse 89; Resp 18; Pulse Ox 100% on R/A; ha1 02:10 BP 128 / 77; Pulse 75; Resp 18 S; Pulse Ox 100% on R/A; ha1 00:02 Body Mass Index 33.81 (89.36 kg, 162.56 cm) hb MDM: 00:34 Patient medically screened. sd2 00:50 Differential diagnosis: Differential diagnosis includes but is not limited to: Viral sd2 URI, acute otitis media, acute otitis externa, pneumonia, UTI, COVID, flu, herpangina among others. Data reviewed: vital signs, nurses notes. 01:54 Data reviewed: lab test result(s), radiologic studies. Counseling: I had a detailed sd2 discussion with the patient and/or guardian regarding: the historical points, exam findings, and any diagnostic results supporting the discharge/admit diagnosis, lab results, radiology results, the need for outpatient follow up, to return to the emergency department if symptoms worsen or persist or if there are any questions or concerns that arise at home. Medical screen evaluation completed. [facility] emergency medical condition absent. ED course: Labs and imaging reviewed. Strep, flu and COVID testing negative. CXR with no acute process. VSS with no respiratory distress or hypoxia. Pt otherwise well appearing and in no acute distress. Advised of continued supportive care and need for outpatient follow up. Verbalizes understanding of strict return precautions. . 03/28 00:10 Order name: SARS-COV-2 RT PCR (Document "Date of Onset" if Symptomatic); Complete Time: sd08 03:47 03/28 00:10 Order name: Influenza Screen (a \\T\\ B); Complete Time: : sd2 03/28 00:10 Order name: Strep; Complete Time: sd2 03/28 00:10 Order name: XRAY Chest Pa And Lat (2 Views) sd2 03/28 01:47 Order name: Throat Culture [facility] 03/28 00:52 Order name: EKG - Nurse/Tech; Complete Time: 01:19 sd2 Administered Medications: 00:57 Drug: Ibuprofen 800 mg Route: PO; ha1 02:00 Follow up: Response: No adverse reaction; Temperature is decreased ha1 02:15 Drug: Phenergan (promethazine) -Codeine Liquid (6.25mg - 10mg / 5mL) 5 ml Route: PO; ll3 02:25 Follow up: Response: No adverse reaction ha1 Disposition Summary: 03/28/22 01:55 Discharge Ordered Location: Home sd2 Problem: new sd2 Symptoms: have improved sd2 Condition: Stable sd2 Diagnosis - Acute upper respiratory infection, unspecified sd2 - Cough sd2 Followup: sd2 - With: Private Physician - When: 2 - 3 days - Reason: Recheck today's complaints, Continuance of care, Re-evaluation by your physician Discharge Instructions: - Discharge Summary Sheet sd2 - Upper Respiratory Infection, Adult sd2 - Cough, Adult sd2 Forms: - Medication Reconciliation Form sd2 - Thank You Letter sd2 - Antibiotic Education sd2 - Prescription Opioid Use sd2 Prescriptions: - Guaifenesin AC 10-100 mg/5 mL Oral Liquid - take 10 milliliters by ORAL route every 6 hours As needed; 240 milliliter; sd2 Refills: 0, Product Selection Permitted Signatures: Dispatcher [employer] [facility] Whitfield, Ayana, RN RN hb Etienne Morales RN RN ll3 Ynes Jansen MD MD sd2 Sonia Jacob RN RN ha1
--- NOTE | 2022-03-28 01:56 | ER ---
Nurse's Notes [facility] Name: Rissa Sales Age: 22 yrs Sex: Female : 2000 Arrival Date: 03/27/2022 Time: 23:59 Bed 2 Private MD: Diagnosis: Acute upper respiratory infection, unspecified;Cough Presentation: 03/28 00:02 Chief complaint: Sore throat and cough x 5 days, worsening persistent cough, SOB and hb back pain today. Seen by PCP this week, negative COVID and strep 2 days ago. Coronavirus screen: Client presents with at least one sign or symptom that may indicate coronavirus-19. Standard/surgical mask placed on the client. Provider contacted for isolation considerations. Ebola Screen: No symptoms or risks identified at this time. Risk Assessment: Do you want to hurt yourself or someone else? Patient reports no desire to harm self or others. Onset of symptoms was March 23, 2022. 00:02 Method Of Arrival: Ambulatory 00:02 Acuity: QUANG 3 hb 01:53 Initial Sepsis Screen: Does the patient meet any 2 criteria? No. Patient's initial ha1 sepsis screen is negative. Does the patient have a suspected source of infection? No. Patient's initial sepsis screen is negative. Triage Assessment: 02:21 Respiratory: the patient has mild shortness of breath. ha1 Historical: - Allergies: 00:07 Lexapro; hb - PMHx: 00:07 Depression; hb - Immunization history:: Adult Immunizations up to date. - Social history:: Smoking status: Patient denies any tobacco usage or history of. Screenin:53 Abuse screen: Denies threats or abuse. Denies injuries from another. Nutritional ha1 screening: No deficits noted. Tuberculosis screening: No symptoms or risk factors identified. Fall Risk None identified. Assessment: 00:33 General: Appears in no apparent distress. Behavior is calm, cooperative. Pain: Denies ha1 pain. Neuro: Level of Consciousness is awake, alert, obeys commands, Oriented to person, place, time, situation. Cardiovascular: Patient's skin is warm and dry. Cardiovascular: Heart tones S1 S2 present. Respiratory: Airway is patent Trachea midline Respiratory effort is even, unlabored, Respiratory pattern is regular, symmetrical, Breath sounds are clear bilaterally. Respiratory: Reports shortness of breath on exertion cough that is productive. GI: Reports nausea, when coughing. 01:30 Reassessment: Patient and/or family updated on plan of care and expected duration. Pain ha1 level reassessed. Patient is alert, oriented x 3, equal unlabored respirations, skin warm/dry/pink. Vital Signs: 00:02 BP 143 / 103; Pulse 89; Resp 18; Temp 100.4(TE); Pulse Ox 99% on R/A; Weight 89.36 kg; hb Height 5 ft. 4 in. (162.56 cm); Pain 5/10; 00:33 BP 140 / 90; Pulse 89; Resp 18; Pulse Ox 100% on R/A; ha1 02:10 BP 128 / 77; Pulse 75; Resp 18 S; Pulse Ox 100% on R/A; ha1 00:02 Body Mass Index 33.81 (89.36 kg, 162.56 cm) hb ED Course: 03/27 23:59 Patient arrived in ED. ag3 03/28 00:07 Triage completed. hb 00:07 Arm band placed on. hb 00:25 Ynes Jansen MD is Attending Physician. sd2 00:33 Patient has correct armband on for positive identification. Bed in low position. Call ha1 light in reach. Side rails up X 1. 00:42 Sonia Jacob, RN is Primary Nurse. ha1 01:21 XRAY Chest Pa And Lat (2 Views) In Process Unspecified. EDMS 02:20 No provider procedures requiring assistance completed. Patient did not have IV access ha1 during this emergency room visit. Administered Medications: 00:57 Drug: Ibuprofen 800 mg Route: PO; ha1 02:00 Follow up: Response: No adverse reaction; Temperature is decreased ha1 02:15 Drug: Phenergan (promethazine) -Codeine Liquid (6.25mg - 10mg / 5mL) 5 ml Route: PO; ll3 02:25 Follow up: Response: No adverse reaction ha1 Medication: 01:54 VIS not applicable for this client. ha1 Outcome: 01:55 Discharge ordered by . sd2 02:21 Discharged to home ha1 02:21 Condition: stable 02:21 Discharge instructions given to patient, family, Instructed on discharge instructions, follow up and referral plans. Demonstrated understanding of instructions, follow-up care, medications, Prescriptions given X 1. 02:22 Patient left the ED. ha1 Signatures: Dispatcher [employer] EDMS Ayana Whitfield, RN RN Sarina Baum3 Etienne Morales RN RN 3 Ynes Jansen MD MD sd2 Sonia Jacob RN RN ha1
[2022-03-28] MEDS ORDERED: PROMETH/COD 6.25/10MG SYRUP 5ML ONE (02:19)
--- NOTE | 2022-03-28 16:53 | RAD REPORT ---
EXAM DESCRIPTION: RAD - Chest Pa And Lat (2 Views) - 03/28/2022 1:19 am CLINICAL HISTORY: Cough COMPARISON: Chest 1 View AP 06/12/2020 report without image TECHNIQUE: Chest 2 Views AP PA Lateral FINDINGS: Moderate decreased inspiration (decreased lung volumes) makes evaluation more difficult. Trachea midline. Heart size and pulmonary vessels within normal limits. Lungs clear without evidence of consolidation, mass, or significant pulmonary edema. No significant pleural effusion or pneumothorax. Bones unremarkable. IMPRESSION: Normal chest radiograph. Electronically signed by: Sree Smyth MD 03/28/2022 1:26 AM CDT Due to temporary technical issues with the PACS/Fluency reporting system, reports are being signed by the in house radiologists without review as a courtesy to insure prompt reporting. The interpreting radiologist is fully responsible for the content of the report
--- NOTE | 2022-03-29 17:29 | EKG ---
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
[2022-03-30 05:25] VITALS: TEMP 100.4
[2022-03-30 05:35] VITALS: BP 140/90; O2SAT 100
== END 2022-03-28 02:22 | disposition home or self-care (01) ==
LOC: ER 23:57
DX: J06.9 Acute upper respiratory infection, unspecified (principal); Z20.822 Contact with and (suspected) exposure to COVID-19
CPT/HCPCS: 71046; 87070; 87081; 87804; 93005; 99283; U0003

== ENCOUNTER 2022-08-25 16:06 | Emergency (ER) | payer OTHER ==
--- OUTSIDE RECORDS SUMMARY | 2022-08-25 16:11 | XMS REPORT | Continuity of Care Document ---
:2000 Author Organization [facility] t Address [address] [place] [address] [place] [address] Care Team Providers Name Role Phone Satish Barajas Primary Care Physician [phone] CECILIA PAVON M.D. Attending Clinician Unavailable Payers [...] Allergie 2-14 Clear s 00:00: [place] 00 [facility] Lexapro drug Active UT TABS allergy [...] unit) (50,000 00:00: unit) 00 capsule levothyroxi 2021-0 No 1mcg ne 88 mcg 6-19 tablet 00:00: 00 Vitamin D2 2021-0 No 1(50,00 1,250 mcg 6-19 0 unit) (50,000 00:00: unit) 00 capsule levothyroxi 2021-0 No 1mcg ne 88 mcg 6-15 tablet 00:00: 00 levothyroxi 2021-0 No 1mcg ne 88 mcg 6-15 tablet [...] mg 2-17 tablet 00:00: 00 Seroquel 50 2022-0 No 1mg mg tablet 2-17 00:00: 00 fluconazole 2022-0 No 1mg 150 mg 2-17 tablet 00:00: 00 metronidazo 2022-0 No 1mg le 500 mg 2-17 tablet 00:00: 00 Seroquel 50 2022-0 No 1mg mg tablet 2-17 00:00: 00 fluconazole 2022-0 No 1mg 150 mg 2-17 tablet 00:00: 00 nystatin 2022-0 No 1unit/g 100,000 2-16 charissa unit/gram 00:00: topical 00 cream Depakote 2-0 No 2mg 250 mg 2-16 tablet,sakina 00:00: yed release 00 Dose 2-0 No Unknown 2-16 00:00: 00 buspirone 5 2-0 No 1mg mg tablet 2-16 00:00: 00 Dose 2022-0 No Unknown 2-16 00:00: 00 nystatin 2022-0 No 1unit/g 100,000 2-16 charissa unit/gram 00:00: topical 00 cream Depakote 2-0 No 2mg 250 mg 2-16 tablet,sakina 00:00: yed release 00 Dose 2022-0 No Unknown 2-16 00:00: 00 buspirone 5 2-0 No 1mg mg tablet 2-16 00:00: 00 Dose 2022-0 No Unknown 2-16 00:00: 00 levothyroxi 2022-0 No 1mcg ne 88 mcg 1-20 tablet 00:00: 00 levothyroxi 2022-0 No 1mcg ne 88 mcg 1-20 tablet 00:00: 00 buspirone 5 2022-0 No 1mg mg tablet 1-19 00:00: 00 Depakote 2022-0 No 1mg 250 mg 1-19 tablet,sakina 00:00: yed release 00 Abilify 2 2-0 No 2mg mg tablet 1-19 00:00: 00 Dose 2021-0 No Unknown 1-19 00:00: 00 buspirone 5 2021-0 No 1mg mg tablet -19 00:00: 00 Depakote 2021-0 No 1mg 250 mg -19 tablet,sakina 00:00: yed release 00 Abilify 2 2021-0 No 2mg mg tablet -19 00:00: 00 Dose 2021-0 No Unknown 1-19 00:00: 00 cholecalcif 2020-1 No 1(1,000 arelis 2-09 unit) (vitamin 00:00: D3) 25 mcg 00 (1,000 unit) tablet cholecalcif 2020-1 No 1(1,000 arelis 2-09 unit) (vitamin 00:00: D3) 25 mcg 00 (1,000 unit) tablet levothyroxi 1 No 1mcg ne 88 mcg 2-04 tablet 00:00: 00 levothyroxi 2020-1 No 1mcg ne 88 mcg 2-04 tablet 00:00: 00 buspirone 5 2020-1 No 1mg mg tablet -19 00:00: 00 Depakote 2020-1 No 1mg 500 mg -19 tablet,sakina 00:00: yed release 00 Dose 2020-1 No Unknown 1-19 00:00: 00 hydroxyzine 2020-1 No 1mg HCl 25 mg -19 tablet 00:00: 00 buspirone 5 2020-1 No 1mg mg tablet -19 00:00: 00 Depakote 2020-1 No 1mg 500 mg -19 tablet,sakina 00:00: yed release 00 Dose 2020-1 No Unknown 1-19 00:00: 00 hydroxyzine 2020-1 No 1mg HCl 25 mg 1-19 tablet 00:00: 00 Depakote 2020-1 No 1mg 500 mg 1-18 tablet,sakina 00:00: yed release 00 buspirone 5 2020-1 No 1mg mg tablet -18 00:00: 00 Abilify 2 2020-1 No 2mg mg tablet -18 00:00: 00 hydroxyzine 2020-1 No 1mg HCl 25 mg 1-18 tablet 00:00: 00 Depakote 2020-1 No 1mg [...] HCl 25 mg 0-27 tablet 00:00: 00 Depakote 2020-1 No 3mg [...] ne 75 mcg 0-06 tablet 00:00: 00 levothyroxi 2020-1 No 1mcg ne 75 mcg 0-06 tablet 00:00: 00 Dose 1-0 No Unknown 9-21 00:00: 00 Depakote 1-0 No 3mg 250 mg 9-21 tablet,sakina 00:00: yed release 00 Dose 2020-0 No Unknown 9-21 00:00: 00 Depakote 1-0 No 3mg 250 mg 9-21 tablet,sakina 00:00: yed release 00 hydroxyzine 1-0 No 1mg HCl 25 mg 9-21 tablet 00:00: 00 hydroxyzine 1-0 No 1mg HCl 25 mg 9-21 tablet 00:00: 00 Depakote 1-0 No 3mg 250 mg 8-19 tablet,sakina 00:00: yed release 00 Abilify 2 1-0 No 1mg mg tablet 8-19 00:00: 00 hydroxyzine 2021-0 No 1mg HCl 25 mg 8-19 tablet 00:00: 00 Depakote 2021-0 No 3mg 250 mg 8-19 tablet,sakina 00:00: yed release 00 Abilify 2 2021-0 No 1mg mg tablet 8-19 00:00: 00 hydroxyzine 2021-0 No 1mg HCl 25 mg 8-19 tablet 00:00: 00 Abilify 2 2021-0 No 1mg mg tablet 730 00:00: 00 Depakote 2021-0 No 3mg 250 mg 7-30 tablet,sakina 00:00: yed release 00 Abilify 2 1-0 No 1mg mg tablet 7 00:00: 00 Depakote 1-0 No 3mg 250 mg 7-30 tablet,sakina 00:00: yed release 00 Depakote 1-0 No 3mg 250 mg 7-29 tablet,sakina 00:00: yed release 00 Abilify 2 1-0 No 1mg mg tablet 7 00:00: 00 Depakote 1-0 No 3mg 250 mg 7-29 tablet,sakina 00:00: yed release 00 Abilify 2 1-0 No 1mg mg tablet 7 00:00: 00 mupirocin 2 2021-0 No 1% % topical 7-21 ointment 00:00: 00 Dose 2021-0 No Unknown 7-21 00:00: 00 famotidine 2021-0 No 1mg 40 mg 7-21 tablet 00:00: 00 sulfamethox 2021-0 No 1mg azole 800 7-21 mg-trimetho 00:00: prim 160 mg 00 tablet Depakote 1-0 No 1mg 250 mg 7-21 tablet,sakina 00:00: yed release 00 mupirocin 2 2021-0 No 1% % topical 7-21 ointment 00:00: 00 Dose 2021-0 No Unknown 7-21 00:00: 00 famotidine 2021-0 No 1mg 40 mg 7-21 tablet 00:00: 00 sulfamethox 2021-0 No 1mg azole 800 7-21 mg-trimetho 00:00: prim 160 mg 00 tablet Depakote 1-0 No 1mg 250 mg 7-21 tablet,sakina 00:00: yed release 00 Depakote 2021-0 No 1mg 250 mg 7-19 tablet,sakina 00:00: yed release 00 Depakote 2021-0 No 1mg 250 mg 7-19 tablet,sakina 00:00: yed release 00 Dose 2021-0 No Unknown 7-14 00:00: 00 Depakote 2021-0 No 1mg 500 mg 7-14 tablet,sakina 00:00: yed release 00 Dose 1-0 No Unknown 7-14 00:00: 00 Dose 2021-0 No Unknown 7-14 00:00: 00 Depakote 1-0 No 1mg 500 mg 7-14 tablet,sakina 00:00: yed release 00 Dose 1-0 No Unknown 7-14 00:00: 00 Depakote 1-0 No 1mg 250 mg 7-07 tablet,sakina 00:00: yed release 00 Depakote 1-0 No 1mg 250 mg 7-07 tablet,sakina 00:00: yed release 00 Dose 1-0 No Unknown 7-03 00:00: 00 Dose 2021-0 No Unknown 7-03 00:00: 00 Diflucan 2021-0 No 1mg 150 mg 4-29 tablet 00:00: 00 Diflucan 2021-0 No 1mg 150 mg 4-29 tablet 00:00: 00 levothyroxi 1-0 No 1mcg ne 75 mcg 4-21 tablet 00:00: 00 levothyroxi 1-0 No 1mcg ne 75 mcg 4-21 tablet 00:00: 00 Amoxicillin Amoxicillin Yes [facility] Clavulanate Clavulanate a ns 875-125 MG 875-125 MG Oral Tablet Oral Tablet Immunizations Ordered Immunization Filled Immunization Date Status Commen ts Source Name Name Boostrix 5-2.5-18.5 2014-02-20 Completed [facility] Intr[facility] [...] Time Observation Value Comments Source BP Systolic 2022-06-29 10:27:00 127 mm[Hg] BP Diastolic 2022-06-29 10:27:00 82 mm[Hg] Weight Measured 2022-06-29 10:27:00 200.60 pounds Height Measured 2022-06-29 10:27:00 64.17 inches Body Temperature 2022-06-29 10:27:00 98.60 degrees Heart Rate 2022-06-29 10:27:00 78.00 /min Respiratory Rate 2022-06-29 10:27:00 BP Systolic 2021-12-15 10:38:00 117 mm[Hg] BP [...] Goal Plan of Care Note [code = 63424-5] Goal Plan of Care Note [code = 15755-0] Goal Plan of Care Note [code = 57033-9] Goal Plan of Care Note [code = 13447-0] Goal Plan of Care Note [code = 37209-5] Goal Plan of Care Note [code = 44558-9] Goal Plan of Care Note [code = 75878-3] Goal Plan of Care Note [code = 00856-3] Goal Plan of Care Note [code = 49632-0] Goal Plan of Care Note [code = 87356-8] Goal Plan of Care Note [code = 30494-0] Goal Plan of Care Note [code = 58702-1] Goal Plan of Care Note [code = 54564-7] Goal Plan of Care Note [code = 21997-6] Goal Plan of Care Note [code = 35486-7] Goal Plan of Care Note [code = 09148-5] Goal Plan of Care Note [code = 88129-1] Goal Plan of Care Note [code = 45160-3] Goal Plan of Care Note [code = 32228-0] Goal Plan of Care Note [code = 19593-3] Goal Plan of Care Note [code = 06506-2] Goal Plan of Care Note [code = 59706-8] Goal Plan of Care Note [code = 44748-3] Goal Plan of Care Note [code = 48623-9] Goal Plan of Care Note [code = 22090-5] Goal Plan of Care Note [code = 46706-4] Goal Plan of Care Note [code = 70642-1] Goal Plan of Care Note [code = 20963-4] Goal Plan of Care Note [code = 06935-7] Goal Plan of Care Note [code = 95683-7] Goal Plan of Care Note [code = 67028-5] Goal Plan of Care Note [code = 30706-0] Goal Plan of Care Note [code = 14899-0] Goal Plan of Care Note [code = 30974-2] Goal Plan of Care Note [code = 44722-7] Goal Plan of Care Note [code = 04889-0] Goal Plan of Care Note [code = 83752-1] Goal Plan of Care Note [code = 96444-8] Goal Plan of Care Note [code = 84116-9] Goal Plan of Care Note [code = 18153-3] Goal Plan of Care Note [code = 47122-8] Goal Plan of Care Note [code = 11818-2] Goal Plan of Care Note [code = 62364-5] Encounters Start End Encounter Admission Attending Care Care Encounter Source Date/Time Date/Time Type Type Clinicians Facility Department ID 2022-08-19 2022-08-19 Outpatient [facility] SHAYNA [id number] Arpan 13:26:02 13:26:02 0217 F Layton 2022-08-09 2022-08-09 Outpatient SFA SFA [id number] [place]pan 17:48:14 17:48:14 0207 F Layton 2022-07-07 2022-07-07 Outpatient SFA SFA [id number] [place]pan 16:28:54 16:28:54 0105 F Layton 2022-06-29 2022-06-29 Outpatient SFA SFA [id number] Arpan 10:06:08 10:06:08 1228 F Layton 2022-06-29 2022-06-29 Outpatient [id number] 00:00:00 00:00:00 Visit [id number] 2022-03-24 2022-03-24 Outpatient [id number] 00:00:00 00:00:00 Visit [id number] 2018-05-08 2018-05-08 [facility] 46 [id number] [place] 08:45:00 08:45:00 t; CECILIA at [facility] Marlene Camargo i, M.D. 2018-05-01 2018-05-01 [facility] Orth[facility] 46 [id number] [place] 09:30:00 09:30:00 t; lorenzo BROOKS [facility] Marlene Camargo i, M.D. Results Test Description Test Time Test Comments Results Result Comments Source TSH, THIRD GENERATION 2022-08-22 03:08:15 Test Item Value Reference Range Interpretation Comme nts TSH, THIRD GENERATION (test code = 2821) 3.850 UIU/ML 0.400-4.100 VITAMIN D, 25 [id number] 03:08:02 Test Item Value Reference Range Interpretation Comments VITAMIN D, 25 20 NG/ML SEE BELOW L EFFECTIVE 07/11/2022, [place] (test code PLEASE NOTE NE W METHODOLOGY = 4958) IS ELECTROCH EMILUMINESCENCE BINDING ASSAY. NOTE: 25-HYDROXYVITAM IN D ASSAY INCLUDES 25-HYD ROXYVITAMIN D2 AND D3. I NTERPRETIVE RANGES PED IATRIC (<17 YEARS) . . . . . . . . . . . NG/ML 20-100ADU LT: INSUFFICIENT . . . . . . . . . . . . . . NG/ML <20 SUBOP TIMAL . . . . . . . . . . . . . . . NG/ML 20-29 OPTIMAL . . . . . . . . . . . . . . . . . NG/ML 30-100 [facility] has important p athology staff changes effecti ve 08/31/2022. New patholo gy staff will provide uninter rupted, excellent patie nt care and clinical consul tation. See URL: [email or web address]. UNLESS OTHERWIS E INDICATED, ALL TESTING PERFORM ED AT [facility] PATH[facility]. [address] [place], [place] CLIA: [id number], CAP : [id number] PAP TEST, THINPREP, [id number] 13:57:55 Test Item Value Reference Range Interpretation Comments SOURCE: (test Cervical/Endoc code = 8001) ervical SLIDES: (test 1 code = 8011) LMP: (test code 05/29/2022 = 8021) SPECIMEN (NOTE) Satisfactory f or ADEQUACY: (test evaluation. code = 04455) Endocervical cells/transform ation zone component present. INTERPRETATION: NILM/NO EPITH. (test code = ABNORMALITY;SE 49438) E BELOW ------- NEGATIVE FO R INTRAEPITHELIAL LESION OR MALIGNANCY ( NILM) --------- --------- --------- - OTHER COMMENTS: (NOTE) Shift in allyn ra (test code = suggestive of b acterial 8081) vaginosis. SUPERINTENDENT PIER Marina : (test code = JOSÉ Ken(ASC 8101) P) QC TECHNOLOGIST: Duc (test code = MARCELLA Davies( 8111) CP),[facility] LOCATION: (test (NOTE) Specimens pr ocessed and code = 36426) interpreted at [facility], [address] [place] [address], , CLIA: [id number] CPT: (test code (NOTE) 78620 UNLESS OTHERWISE = 8140) INDICATED, COMP UTER AIDED AND CYTOTECHNOLOGIS T SCREENING PERFO RMED. The Pap test is a s creening test with an in herent, but low probabi lity of error. Your pat ient should be remin ded to consult you imm ediately if she experien griselda any suspicious sign s or symptoms, regar dless of her Pap test re sult. An alternate repor t format containing imag es or consolidated pr ior Pap history is avai labaidee as applicable. HPV HIGH IF ABNORMAL [id number] 13:57:55 Test Item Value Reference Range Interpretation Comments HPV HIGH IF ABNORMAL CRITERIA NOT MET THINPREP (test code = 08808) PAP TEST, THINPREP, [id number] 00:00:00 Test Item Value Reference Range Interpretation Comments SOURCE: (test code = Cervical/Endocervical 8001) SLIDES: (test code = 1 8011) LMP: (test code = 8021) 05/29/2022 SPECIMEN ADEQUACY: (test (NOTE) code = 97208) INTERPRETATION: (test NILM/NO EPITH. code = 14486) ABNORMALITY;SEE BELOW OTHER COMMENTS: (test (NOTE) code = 8081) SUPERINTENDENT PIER: (test Amrina code = 8101) JOSÉ Ken(ASCP) QC TECHNOLOGIST: (test Duc code = 8111) MARCELLA Davies(ASCP),[facility] LOCATION: (test code = (NOTE) 00768) CPT: (test code = 8140) (NOTE) PAP TEST, THINPREP, [id number] 00:00:00 Test Item Value Reference Range Interpretation Comments SOURCE: (test code = Cervical/Endocervical 8001) SLIDES: (test code = 1 8011) LMP: (test code = 8021) 05/29/2022 SPECIMEN ADEQUACY: (test (NOTE) code = 98578) INTERPRETATION: (test NILM/NO EPITH. code = 05765) ABNORMALITY;SEE BELOW OTHER COMMENTS: (test (NOTE) code = 8081) SUPERINTENDENT PIER: (test Marina code = 8101) JOSÉ Ken(ASCP) QC TECHNOLOGIST: (test Duc code = 8111) KkeeSCT(ASCP),[facility] LOCATION: (test code = (NOTE) 27271) CPT: (test code = 8140) (NOTE) HPV HIGH IF ABNORMAL THINPREP [ADDED]2022-07-01 00:00:00 Test Item Value Reference Range Interpretation Comments HPV HIGH IF ABNORMAL CRITERIA NOT MET THINPREP (test code = 96397) HPV HIGH IF ABNORMAL THINPREP [ADDED]2022-07-01 00:00:00 Test Item Value Reference Range Interpretation Comments HPV HIGH IF ABNORMAL CRITERIA NOT MET THINPREP (test code = 49593) VAGINAL PATHOGENS DNA [id number] 15:24:15 Test Item Value Reference Range Interpretation Comments DEDRA SPECIES NEGATIVE NEGATIVE (test code = ) G. VAGINALIS POSITIVE NEGATIVE A (test code = ) T. VAGINALIS NEGATIVE NEGATIVE Note: The BD A ffirm VPIII (test code = Microbial Ident ification ) Testis a DNA pr obe test intended for us e in the detectionand id entification of Dedra spec ies, Gardnerellavagi nalis and Trichomonas vag inalis nucleic acid. CT/NG, NAAT, [id number] 08:59:42 Test Item Value Reference Range Interpretation Comments CHLAMYDIA, NAAT, NEGATIVE NEGATIVE A negative result does THINPREP (test code not excl ude low level = 92920) infection, specimensamplin g error, or collection erro r. Testing is performed wi th the [employer] Reid 680 systems usingre al-time Polymerase Cody n Reaction (PCR) method. GONORRHEA, NAAT, NEGATIVE NEGATIVE A negative result does THINPREP (test code not excl ude low level = 17329) infection, specimensamplin g error, or collection erro r. Testing is performed wi th the [employer] Reid 680 systems usingre al-time Polymerase Cody n Reaction (PCR) method. U NLESS OTHERWISE INDIC ATED, ALL TESTING PERFORM ED ATCLINICAL PATH [facility]. [address] [place] [address] LABORATORY DIRE CTOR: Autumn BUCHANAN. CLIA NUMBER [id number] CAP ACCREDITATION N O. [id number] HIV 1/2 4TH GEN, RFLX [id number] 08:02:13 Test Item Value Reference Range Interpretation Comments HIV 1/2 4TH GEN, RFLX CONF (test NON-REACTIVE NON-REACTIVE code = 3514) HEPATITIS PANEL, [id number] 08:02:13 Test Item Value Reference Interpretation Comments Range HEPATITIS A TOTAL REACTIVE NON-REACTIVE A AB (test code = 2725) HEPATITIS B SURF AG NON-REACTIVE NON-REACTIVE (test code = 2739) HEP B CORE TOTAL AB NON-REACTIVE NON-REACTIVE (test code = 2729) HEPATITIS B SURFACE NON-REACTIVE NON-REACTIVE AB (test code = 2737) HEPATITIS C NON-REACTIVE NON-REACTIVE ANTIBODY (test code = 4675) INTERPRETATION (NOTE) Hepatitis A serology HEPATITIS A: (test consisten t with past code = 2552) exposure or previousvaccina tion to hepatitis A vir us. No evidence of cur rent acutehepatitis A infection. INTERPRETATION (NOTE) Hepatitis B serology HEPATITIS B: (test shows no evidence of code = 89966) past exposure to orcurrent infec tion with hepatitis B vir us. No evidence of hep atitis Bimmunization i s identified. INTERPRETATION (NOTE) Hepatitis C serology HEPATITIS C: (test shows no evidence of code = 53834) exposure to he patitisC virus at this t mohinder. It can take up to 12 months after exposure tothe hepatitis C vir us for antibodies to b ecome detectable in t he blood in certain sarah ents. HEPATITIS A [id number] 08:02:13 Test Item Value Reference Range Interpretation Comments HEPATITIS A IgM NON-REACTIVE NON-REACTIVE UNLESS OTHE RWISE (test code = 2728) INDICATED , ALL TESTING PERFORMED [facility], [address] DIRECTOR: PAPA BAH M.D. CLIA NUMBER [id number] CAP ACCREDITATION N O. [id number] RPR REFLEX TO T. PALLIDUM - [id number] 04:43:55 Test Item Value Reference Range Interpretation Comments RPR (test code = 64364) NON-REACTIVE NON-REACTIVE RPR TITER (test code = 3500) NOT INDIC. TITER NOT INDIC. VAGINAL PATHOGENS DNA [id number] 00:00:00 Test Item Value Reference Range Interpretation Comments DEDRA SPECIES (test code = 41348) NEGATIVE G. VAGINALIS (test code = ) POSITIVE T. VAGINALIS (test code = ) NEGATIVE VAGINAL PATHOGENS DNA [id number] 00:00:00 Test Item Value Reference Range Interpretation Comments DEDRA SPECIES (test code = ) NEGATIVE G. VAGINALIS (test code = ) POSITIVE T. VAGINALIS (test code = ) NEGATIVE RPR REFLEX TO T. PALLIDUM - [id number] 00:00:00 Test Item Value Reference Range Interpretation Comments RPR (test code = 39814) NON-REACTIVE RPR TITER (test code = 3500) NOT INDIC. TITER RPR REFLEX TO T. PALLIDUM - [id number] 00:00:00 Test Item Value Reference Range Interpretation Comments RPR (test code = 62668) NON-REACTIVE RPR TITER (test code = 3500) NOT INDIC. TITER HIV 1/2 4TH GEN, RFLX [id number] 00:00:00 Test Item Value Reference Range Interpretation Comments HIV 1/2 4TH GEN, RFLX CONF (test NON-REACTIVE code = 3514) CT/NG, TMA, [id number] 00:00:00 Test Item Value Reference Range Interpretation Comments CHLAMYDIA, NAAT, THINPREP (test code NEGATIVE = 01069) GONORRHEA, NAAT, THINPREP (test code NEGATIVE = 49723) CT/NG, TMA, [id number] 00:00:00 Test Item Value Reference Range Interpretation Comments CHLAMYDIA, NAAT, THINPREP (test code NEGATIVE = 22777) GONORRHEA, NAAT, THINPREP (test code NEGATIVE = 07035) HIV 1/2 4TH GEN, RFLX [id number] 00:00:00 Test Item Value Reference Range Interpretation Comments HIV 1/2 4TH GEN, RFLX CONF (test NON-REACTIVE code = 3514) HEPATITIS PROFILE (A,B,C)2022-06-30 00:00:00 Test Item Value Reference Range Interpretation Comments HEPATITIS A TOTAL AB (test code REACTIVE = 2725) HEPATITIS B SURF AG (test code = NON-REACTIVE 2738) HEP B CORE TOTAL AB (test code = NON-REACTIVE 2728) HEPATITIS B SURFACE AB (test NON-REACTIVE code = 7) HEPATITIS C ANTIBODY (test code NON-REACTIVE = 4675) INTERPRETATION HEPATITIS A: (NOTE) (test code = 2552) INTERPRETATION HEPATITIS B: (NOTE) (test code = 67394) INTERPRETATION HEPATITIS C: (NOTE) (test code = 14137) HEPATITIS PROFILE (A,B,C)2022-06-30 00:00:00 Test Item Value Reference Range Interpretation Comments HEPATITIS A TOTAL AB (test code REACTIVE = 2725) HEPATITIS B SURF AG (test code = NON-REACTIVE 2739) HEP B CORE TOTAL AB (test code = NON-REACTIVE 2729) HEPATITIS B SURFACE AB (test NON-REACTIVE code = 2737) HEPATITIS C ANTIBODY (test code NON-REACTIVE = 4675) INTERPRETATION HEPATITIS A: (NOTE) (test code = 2552) INTERPRETATION HEPATITIS B: (NOTE) (test code = 72405) INTERPRETATION HEPATITIS C: (NOTE) (test code = 39157) HEPATITIS A IgM [REFLEX]2022-06-30 00:00:00 Test Item Value Reference Range Interpretation Comments HEPATITIS A IgM (test code = NON-REACTIVE 8) VITAMIN D, 25 [id number] 07:10:30 Test Item Value Reference Range Interpretation Comments VITAMIN D, 25 OH 17 NG/ML SEE BELOW L NOTE: 25-H YDROXYVITAMIN D (test code = 4958) ASSAY INC LUDES 25-HYDROXYVITAM IN D2 AND D3. METHODOLOGY IS CHEMILUMINESCEN T IMMUNOASSAY. * INTERPRETIVE RA NGES PEDIATRIC (<17 YEARS) . . . . . . . . . . . NG/ML 20-100ADULT: IN SUFFICIENT . . . . . . . . . . . . . . NG/ML <20 SUBOP TIMAL . . . . . . . . . . . . . . . NG/ML 20-29 OPT IMAL . . . . . . . . . . . . . . . . . NG/ML 30-100 UN LESS OTHERWISE INDIC ATED, ALL TESTING PERFORM ED ATCLINICAL PATH [facility], I ID. [address] [place] [address] LABORATORY DIRE CTOR: Autumn BUCHANAN. CLIA NUMBER [id number] CAP ACCREDITATION N O. [id number] TSH, THIRD [id number] 04:12:07 Test Item Value Reference Range Interpretation Comments TSH, THIRD GENERATION (test code 4.500 UIU/ML 0.400-4.100 H = 2821) [id number] 00:00:00 Test Item Value Reference Range Interpretation Comments TSH, THIRD GENERATION (test code 4.500 UIU/ML = 2821) [id number] 00:00:00 Test Item Value Reference Range Interpretation Comments TSH, THIRD GENERATION (test code 4.500 UIU/ML = 2821) [id number] 00:00:00 Test Item Value Reference Range Interpretation Comments TSH, THIRD GENERATION (test code 4.500 UIU/ML = 2821) VITAMIN D, 25 [id number] 00:00:00 Test Item Value Reference Range Interpretation Comments VITAMIN D, 25 OH (test code = 4958) 17 NG/ML VITAMIN D, 25 [id number] 00:00:00 Test Item Value Reference Range Interpretation Comments VITAMIN D, 25 OH (test code = 4958) 17 NG/ML [id number] 00:00:00 Test Item Value Reference Range Interpretation Comments TSH, THIRD GENERATION (test code 4.500 UIU/ML = 2821) [id number] 00:00:00 Test Item Value Reference Range Interpretation Comments TSH, THIRD GENERATION (test code 4.500 UIU/ML = 2821) [id number] 00:00:00 Test Item Value Reference Range Interpretation Comments TSH, THIRD GENERATION (test code 4.500 UIU/ML = 2821) VITAMIN D, 25 [id number] 00:00:00 Test Item Value Reference Range Interpretation Comments VITAMIN D, 25 OH (test code = 4958) 17 NG/ML VITAMIN D, 25 [id number] 00:00:00 Test Item Value Reference Range Interpretation Comments VITAMIN D, 25 OH (test code = 4958) 17 NG/ML VAGINAL PATHOGENS DNA [id number] 15:04:06 Test Item Value Reference Range Interpretation Comments DEDRA SPECIES (test code = 39446) POSITIVE NEGATIVE A G. VAGINALIS (test code = ) POSITIVE NEGATIVE A T. VAGINALIS (test code = ) NEGATIVE NEGATIVE HIV 1/2 4TH GEN, RFLX [id number] 03:50:51 Test Item Value Reference Range Interpretation Comments HIV 1/2 4TH GEN, RFLX CONF (test NON-REACTIVE NON-REACTIVE code = 3514) HEPATITIS PANEL, [id number] 03:50:51 Test Item Value Reference Range Interpretation Comments HEPATITIS A IgM (test NON-REACTIVE NON-REACTIVE code = 74034) HEPATITIS B CORE IgM NON-REACTIVE NON-REACTIVE (test code = 4644) HEPATITIS B SURF AG NON-REACTIVE NON-REACTIVE (test code = 2739) HEPATITIS C ANTIBODY NON-REACTIVE NON-REACTIVE (test code = 4675) INTERPRETATION (NOTE) Hepatitis A HEPATITIS A: (test code sero logy shows no = 2552) evidence of acu te hepatitis A. INTERPRETATION (NOTE) Hepatitis B HEPATITIS B: (test code sero logy shows no = 35184) evidence of acu te hepatitis B and no indication of exposure to hepatitis B vir us in the previous eug[place] eight months. INTERPRETATION (NOTE) Hepatitis C HEPATITIS C: (test code sero [place]y shows no = 84484) evidence of exposure to hepatitisC viru s at this time. I t can take up to 12 months after exposure tothe hepatitis C vir us for antibodies to become detectab le in the blood in certain patient s. [id number] 03:18:11 Test Item Value Reference Range Interpretation Comments RPR RESULT (test NON-REACTIVE NON-REACTIVE code = 3501) RPR TITER (test NOT INDIC. NOT INDIC. UNLESS OTH ERWISE code = 3500) TITER INDICATED, ALL TESTING PERFORMED [facility] [address] [place] [address] 4 LABORATORY DIRE CTOR: PAPA DWYER M.D. CLIA NUMBER [id number] [place] [id number] HIV AB/AG COMBO RFLX [id number] 00:00:00 Test Item Value Reference Range Interpretation Comments HIV 1/2 4TH GEN, RFLX CONF (test NON-REACTIVE code = 3514) HIV AB/AG COMBO RFLX [id number] 00:00:00 Test Item Value Reference Range Interpretation Comments HIV 1/2 4TH GEN, RFLX CONF (test NON-REACTIVE code = 3514) VAGINAL PATHOGENS DNA [id number] 00:00:00 Test Item Value Reference Range Interpretation Comments DEDRA SPECIES (test code = 39406) POSITIVE G. VAGINALIS (test code = ) POSITIVE T. VAGINALIS (test code = ) NEGATIVE VAGINAL PATHOGENS DNA [id number] 00:00:00 Test Item Value Reference Range Interpretation Comments DEDRA SPECIES (test code = ) POSITIVE G. VAGINALIS (test code = ) POSITIVE T. VAGINALIS (test code = ) NEGATIVE ACUTE HEPATITIS [id number] 00:00:00 Test Item Value Reference Range Interpretation Comments HEPATITIS A IgM (test code = NON-REACTIVE 38557) HEPATITIS B CORE IgM (test code NON-REACTIVE = 4644) HEPATITIS B SURF AG (test code = NON-REACTIVE 2739) HEPATITIS C ANTIBODY (test code NON-REACTIVE = 4675) INTERPRETATION HEPATITIS A: (NOTE) (test code = 2552) INTERPRETATION HEPATITIS B: (NOTE) (test code = 46503) INTERPRETATION HEPATITIS C: (NOTE) (test code = 90080) ACUTE HEPATITIS [id number] 00:00:00 Test Item Value Reference Range Interpretation Comments HEPATITIS A IgM (test code = NON-REACTIVE 30711) HEPATITIS B CORE IgM (test code NON-REACTIVE = 4644) HEPATITIS B SURF AG (test code = NON-REACTIVE 2739) HEPATITIS C ANTIBODY (test code NON-REACTIVE = 4675) INTERPRETATION HEPATITIS A: (NOTE) (test code = 2552) INTERPRETATION HEPATITIS B: (NOTE) (test code = 91413) INTERPRETATION HEPATITIS C: (NOTE) (test code = 71727) [id number] 00:00:00 Test Item Value Reference Range Interpretation Comments RPR RESULT (test code = NON-REACTIVE 3501) RPR TITER (test code = 3500) NOT INDIC. TITER [id number] 00:00:00 Test Item Value Reference Range Interpretation Comments RPR RESULT (test code = NON-REACTIVE 3501) RPR TITER (test code = 3500) NOT INDIC. TITER [id number] 00:00:00 Test Item Value Reference Range Interpretation Comments RPR RESULT (test code = NON-REACTIVE 3501) RPR TITER (test code = 3500) NOT INDIC. TITER HIV AB/AG COMBO RFLX [id number] 00:00:00 Test Item Value Reference Range Interpretation Comments HIV 1/2 4TH GEN, RFLX CONF (test NON-REACTIVE code = 3514) HIV AB/AG COMBO RFLX [id number] 00:00:00 Test Item Value Reference Range Interpretation Comments HIV 1/2 4TH GEN, RFLX CONF (test NON-REACTIVE code = 3514) VAGINAL PATHOGENS DNA [id number] 00:00:00 Test Item Value Reference Range Interpretation Comments DEDRA SPECIES (test code = ) POSITIVE G. VAGINALIS (test code = 85476) POSITIVE T. VAGINALIS (test code = 94232) NEGATIVE VAGINAL PATHOGENS DNA [id number] 00:00:00 Test Item Value Reference Range Interpretation Comments DEDRA SPECIES (test code = ) POSITIVE G. VAGINALIS (test code = 36172) POSITIVE T. VAGINALIS (test code = 11331) NEGATIVE ACUTE HEPATITIS [id number] 00:00:00 Test Item Value Reference Range Interpretation Comments HEPATITIS A IgM (test code = NON-REACTIVE 02473) HEPATITIS B CORE IgM (test code NON-REACTIVE = 4644) HEPATITIS B SURF AG (test code = NON-REACTIVE 2739) HEPATITIS C ANTIBODY (test code NON-REACTIVE = 4675) INTERPRETATION HEPATITIS A: (NOTE) (test code = 2552) INTERPRETATION HEPATITIS B: (NOTE) (test code = 06503) INTERPRETATION HEPATITIS C: (NOTE) (test code = 30979) ACUTE HEPATITIS [id number] 00:00:00 Test Item Value Reference Range Interpretation Comments HEPATITIS A IgM (test code = NON-REACTIVE 21880) HEPATITIS B CORE IgM (test code NON-REACTIVE = 4644) HEPATITIS B SURF AG (test code = NON-REACTIVE 2739) HEPATITIS C ANTIBODY (test code NON-REACTIVE = 4675) INTERPRETATION HEPATITIS A: (NOTE) (test code = 2552) INTERPRETATION HEPATITIS B: (NOTE) (test code = 92133) INTERPRETATION HEPATITIS C: (NOTE) (test code = 56208) [id number] 00:00:00 Test Item Value Reference Range Interpretation Comments RPR RESULT (test code = NON-REACTIVE 3501) RPR TITER (test code = 3500) NOT INDIC. TITER [id number] 00:00:00 Test Item Value Reference Range Interpretation Comments RPR RESULT (test code = NON-REACTIVE 3501) RPR TITER (test code = 3500) NOT INDIC. TITER [id number] 00:00:00 Test Item Value Reference Range Interpretation Comments RPR RESULT (test code = NON-REACTIVE 3501) RPR TITER (test code = 3500) NOT INDIC. TITER SARS-CoV-2 (COVID-19), RT-PCR/[id number] 17:22:51 Test Item Value Reference Interpretation Comments Range SARS-CoV-2 POSITIVE SEE NOTE A SARS-CoV-2 RNA INTERPRETATION DETECTEDPosit latosha results (test code = are indicative of the 52270) presence of SARAH BETH S-CoV-2 RNA;clinical co rrelation with patient hi story and other diagnosticinfor mation is necessary to de termine patient infecti on status.Positive results do not rule out bacterial infec tion or co-infectionwit h other viruses. Positi ve and negative predic tive values oftestin g are highly dependen t on prevalence. SOURCE (test code NASOPHARYNGEAL Note: M ethodology is = 70417) Lisa Reid Beth l-Time RT-PCR. The exp ected result or refer ence range is NEGATI VE (Not Detected). For more information reg arding COVID-19 testin g to include clinicalinforma tion, methodology det ail, intended use, F DA authorization andrecommended fact sheets for sarah ents or healthcare prov iders, see NewTest Announcement: S ARS-CoV-2 (COVID-19) by N AAT at URL below (note ,fact sheets are prov ided by method given in report:[email or web address] Alternatively, see downloadable PD F fact sheet at:[email or web address] UNLESS OTHERWIS E INDICATED, ALL TESTING PERFORMED [facility] [address] [place] [address] 4 LABORATORY DIRE CTOR: PAPA DWYER M.D. CLIA NUMBER [id number] [place] [id number] SARS-CoV-2 (COVID-19) by RT-PCR (HIGH RISK)2021-07-11 00:00:00 Test Item Value Reference Range Interpretation Comments SARS-CoV-2 INTERPRETATION POSITIVE (test code = 87797) SOURCE (test code = 56011) NASOPHARYNGEAL SARS-CoV-2 (COVID-19) by RT-PCR (HIGH RISK)2021-07-11 00:00:00 Test Item Value Reference Range Interpretation Comments SARS-CoV-2 INTERPRETATION POSITIVE (test code = 11728) SOURCE (test code = 56487) NASOPHARYNGEAL SARS-CoV-2 (COVID-19) by RT-PCR (HIGH RISK)2021-07-11 00:00:00 Test Item Value Reference Range Interpretation Comments SARS-CoV-2 INTERPRETATION POSITIVE (test code = 09472) SOURCE (test code = 81593) NASOPHARYNGEAL SARS-CoV-2 (COVID-19) by RT-PCR (HIGH RISK)2021-07-11 00:00:00 Test Item Value Reference Range Interpretation Comments SARS-CoV-2 INTERPRETATION POSITIVE (test code = 14467) SOURCE (test code = 07011) NASOPHARYNGEAL [id number] 00:00:00 Test Item Value Reference Range Interpretation Comments TSH, THIRD GENERATION (test code 3.940 UIU/ML = 2821) [id number] 00:00:00 Test Item Value Reference Range Interpretation Comments TSH, THIRD GENERATION (test code 3.940 UIU/ML = 2821) [id number] 00:00:00 Test Item Value Reference Range Interpretation Comments TSH, THIRD GENERATION (test code 3.940 UIU/ML = 2821) T3 [id number] 00:00:00 Test Item Value Reference Range Interpretation Comments T3 TOTAL (test code = 2818) 135 NG/DL T3 [id number] 00:00:00 Test Item Value Reference Range Interpretation Comments T3 TOTAL (test code = 2818) 135 NG/DL T3 [id number] 00:00:00 Test Item Value Reference Range Interpretation Comments T3 TOTAL (test code = 2818) 135 NG/DL T4 (THYROXINE)2021-06-12 00:00:00 Test Item Value Reference Range Interpretation Comments T4 (THYROXINE) (test code = 2819) 6.9 UG/DL T4 (THYROXINE)2021-06-12 00:00:00 Test Item Value Reference Range Interpretation Comments T4 (THYROXINE) (test code = 2819) 6.9 UG/DL VALPROIC [id number] 00:00:00 Test Item Value Reference Range Interpretation Comments VALPROIC ACID (test code = 3025) 43.2 UG/ML VALPROIC [id number] 00:00:00 Test Item Value Reference Range Interpretation Comments VALPROIC ACID (test code = 3025) 43.2 UG/ML [id number] 00:00:00 Test Item Value Reference Range Interpretation Comments TSH, THIRD GENERATION (test code 3.940 UIU/ML = 2821) [id number] 00:00:00 Test Item Value Reference Range Interpretation Comments TSH, THIRD GENERATION (test code 3.940 UIU/ML = 2821) [id number] 00:00:00 Test Item Value Reference Range Interpretation Comments TSH, THIRD GENERATION (test code 3.940 UIU/ML = 2821) T3 [id number] 00:00:00 Test Item Value Reference Range Interpretation Comments T3 TOTAL (test code = 2818) 135 NG/DL T3 [id number] 00:00:00 Test Item Value Reference Range Interpretation Comments T3 TOTAL (test code = 2818) 135 NG/DL T3 [id number] 00:00:00 Test Item Value Reference Range Interpretation Comments T3 TOTAL (test code = 2818) 135 NG/DL T4 (THYROXINE)2021-06-12 00:00:00 Test Item Value Reference Range Interpretation Comments T4 (THYROXINE) (test code = 2819) 6.9 UG/DL T4 (THYROXINE)2021-06-12 00:00:00 Test Item Value Reference Range Interpretation Comments T4 (THYROXINE) (test code = 2819) 6.9 UG/DL VALPROIC [id number] 00:00:00 Test Item Value Reference Range Interpretation Comments VALPROIC ACID (test code = 3025) 43.2 UG/ML VALPROIC [id number] 00:00:00 Test Item Value Reference Range Interpretation Comments VALPROIC ACID (test code = 3025) 43.2 UG/ML CBC W/AUTO [id number] 00:00:00 Test Item Value Reference Range Interpretation [...] NUCLEATED RBCS (test code = 0.00 K/UL 09049) CBC W/AUTO [id number] 00:00:00 Test Item Value Reference Range Interpretation [...] NUCLEATED RBCS (test code = 0.00 K/UL 21018) CBC W/AUTO [id number] 00:00:00 Test Item Value Reference Range Interpretation [...] NUCLEATED RBCS (test code = 0.00 K/UL 51134) LIPID [id number] 00:00:00 Test Item Value Reference Range Interpretation Comments CHOLESTEROL (test code = 2210) 140 MG/DL TRIGLYCERIDES (test code = 2232) 98 MG/DL HDL CHOLESTEROL (test code = 2220) 45 MG/DL CALC LDL CHOL (test code = 2237) 77 MG/DL RISK RATIO LDL/HDL (test code = 1.71 RATIO 2238) LIPID [id number] 00:00:00 Test Item Value Reference Range Interpretation Comments CHOLESTEROL (test code = 2210) 140 MG/DL TRIGLYCERIDES (test code = 2232) 98 MG/DL HDL CHOLESTEROL (test code = 2220) 45 MG/DL CALC LDL CHOL (test code = 2237) 77 MG/DL RISK RATIO LDL/HDL (test code = 1.71 RATIO 2238) COMPREHENSIVE METABOLIC [id number] 00:00:00 Test Item Value Reference Range Interpretation Comments GLUCOSE (test code = 2217) 106 MG/DL BUN (test code = 2208) 11 MG/DL CREATININE (test code = 2214) 0.66 MG/DL eGFR AMER. (test code 147 ML/MIN/1.73 = 90566) eGFR NON- AMER. (test 127 ML/MIN/1.73 code = 69515) CALC BUN/CREAT (test code = 17 RATIO [...] code = 2219) 16 U/L COMPREHENSIVE METABOLIC [id number] 00:00:00 Test Item Value Reference Range Interpretation Comments GLUCOSE (test code = 2217) 106 MG/DL BUN (test code = 2208) 11 MG/DL CREATININE (test code = 2214) 0.66 MG/DL eGFR AMER. (test code 147 ML/MIN/1.73 = 74075) eGFR NON- AMER. (test 127 ML/MIN/1.73 code = 19740) CALC BUN/CREAT (test code = 17 RATIO [...] CALC GLOBULIN (test code = 2.5 G/DL 2239) CALC A/G RATIO (test code = 1.8 RATIO 2233) BILIRUBIN, TOTAL (test code = <0.2 MG/DL 2206) ALKALINE PHOSPHATASE (test 76 U/L code = 2204) AST (test code = 2218) 18 U/L ALT (test code = 2219) 16 U/L VITAMIN D, 25 [id number] 00:00:00 Test Item Value Reference Range Interpretation Comments VITAMIN D, 25 OH (test code = 4958) 18 NG/ML VITAMIN D, 25 [id number] 00:00:00 Test Item Value Reference Range Interpretation Comments VITAMIN D, 25 OH (test code = 4958) 18 NG/ML CBC W/AUTO [id number] 00:00:00 Test Item Value Reference Range Interpretation [...] NUCLEATED RBCS (test code = 0.00 K/UL 82498) CBC W/AUTO [id number] 00:00:00 Test Item Value Reference Range Interpretation [...] NUCLEATED RBCS (test code = 0.00 K/UL 30208) CBC W/AUTO [id number] 00:00:00 Test Item Value Reference Range Interpretation [...] NUCLEATED RBCS (test code = 0.00 K/UL 89850) LIPID [id number] 00:00:00 Test Item Value Reference Range Interpretation Comments CHOLESTEROL (test code = 2210) 140 MG/DL TRIGLYCERIDES (test code = 2232) 98 MG/DL HDL CHOLESTEROL (test code = 2220) 45 MG/DL CALC LDL CHOL (test code = 2237) 77 MG/DL RISK RATIO LDL/HDL (test code = 1.71 RATIO 2238) LIPID [id number] 00:00:00 Test Item Value Reference Range Interpretation Comments CHOLESTEROL (test code = 2210) 140 MG/DL TRIGLYCERIDES (test code = 2232) 98 MG/DL HDL CHOLESTEROL (test code = 2220) 45 MG/DL CALC LDL CHOL (test code = 2237) 77 MG/DL RISK RATIO LDL/HDL (test code = 1.71 RATIO 2238) COMPREHENSIVE METABOLIC [id number] 00:00:00 Test Item Value Reference Range Interpretation Comments GLUCOSE (test code = 2217) 106 MG/DL BUN (test code = 2208) 11 MG/DL CREATININE (test code = 2214) 0.66 MG/DL eGFR AMER. (test code 147 ML/MIN/1.73 = 08627) eGFR NON- AMER. (test 127 ML/MIN/1.73 code = 06868) CALC BUN/CREAT (test code = 17 RATIO 2235) SODIUM (test code = 2231) 142 MEQ/L POTASSIUM (test code = 2228) 4.3 MEQ/L CHLORIDE (test code = 2215) 105 MEQ/L CARBON DIOXIDE (test code = 26 MEQ/L 2206) CALCIUM (test code = 2209) 9.3 MG/DL [...] code = 2219) 16 U/L COMPREHENSIVE METABOLIC [id number] 00:00:00 Test Item Value Reference Range Interpretation Comments GLUCOSE (test code = 2217) 106 MG/DL BUN (test code = 2208) 11 MG/DL CREATININE (test code = 2214) 0.66 MG/DL eGFR AMER. (test code 147 ML/MIN/1.73 = 99120) eGFR NON- AMER. (test 127 ML/MIN/1.73 code = 10659) CALC BUN/CREAT (test code = 17 RATIO 2235) SODIUM (test code = 2231) 142 MEQ/L POTASSIUM (test code = 2228) 4.3 MEQ/L CHLORIDE (test code = 2215) 105 MEQ/L CARBON DIOXIDE (test code = 26 MEQ/L 2206) CALCIUM (test code = 2209) 9.3 MG/DL [...] = 2219) 16 U/L VITAMIN D, 25 [id number] 00:00:00 Test Item Value Reference Range Interpretation Comments VITAMIN D, 25 OH (test code = 4958) 18 NG/ML VITAMIN D, 25 [id number] 00:00:00 Test Item Value Reference Range Interpretation Comments VITAMIN D, 25 OH (test code = 4958) 18 NG/ML [id number] 00:00:00 Test Item Value Reference Range Interpretation Comments TSH, THIRD GENERATION (test code 5.450 UIU/ML = 2821) [id number] 00:00:00 Test Item Value Reference Range Interpretation Comments TSH, THIRD GENERATION (test code 5.450 UIU/ML = 2821) [id number] 00:00:00 Test Item Value Reference Range Interpretation [...] (THYROXINE) (test code = 0.91 NG/DL 2823) [id number] 00:00:00 Test Item Value Reference Range Interpretation Comments TSH, THIRD GENERATION (test code 5.450 UIU/ML = 2821) [id number] 00:00:00 Test Item Value Reference Range Interpretation Comments TSH, THIRD GENERATION (test code 5.450 UIU/ML = 2821) [id number] 00:00:00 Test Item Value Reference Range Interpretation [...] code = 0.91 NG/DL 2823) CBC W/AUTO [id number] 00:00:00 Test Item Value Reference Range Interpretation [...] NUCLEATED RBCS (test code = 0.00 K/UL 26200) CBC W/AUTO [id number] 00:00:00 Test Item Value Reference Range Interpretation [...] NUCLEATED RBCS (test code = 0.00 K/UL 64667) CBC W/AUTO [id number] 00:00:00 Test Item Value Reference Range Interpretation [...] NUCLEATED RBCS (test code = 0.00 K/UL 91459) COMPREHENSIVE METABOLIC [id number] 00:00:00 Test Item Value Reference Range Interpretation Comments GLUCOSE (test code = 2217) 83 MG/DL BUN (test code = 2208) 14 MG/DL CREATININE (test code = 2214) 0.66 MG/DL eGFR AMER. (test code 148 ML/MIN/1.73 = 59983) eGFR NON- AMER. (test 128 ML/MIN/1.73 code = 69213) CALC BUN/CREAT (test code = 21 RATIO [...] code = 2219) 37 U/L COMPREHENSIVE METABOLIC [id number] 00:00:00 Test Item Value Reference Range Interpretation Comments GLUCOSE (test code = 2217) 83 MG/DL BUN (test code = 2208) 14 MG/DL CREATININE (test code = 2214) 0.66 MG/DL eGFR AMER. (test code 148 ML/MIN/1.73 = 13830) eGFR NON- AMER. (test 128 ML/MIN/1.73 code = 36007) CALC BUN/CREAT (test code = 21 RATIO 2235) SODIUM (test code = 2231) 139 MEQ/L POTASSIUM (test code = 2228) 4.1 MEQ/L CHLORIDE (test code = 2215) 103 MEQ/L CARBON DIOXIDE (test code = 22 MEQ/L 2205) CALCIUM (test code = 2209) 9.1 MG/DL PROTEIN, TOTAL (test code = 6.5 G/DL 2228) ALBUMIN (test code = 2201) 4.4 G/DL CALC GLOBULIN (test code = 2.1 G/DL 2239) CALC A/G RATIO (test code = 2.1 RATIO 2234) BILIRUBIN, TOTAL (test code = 0.2 MG/DL 2206) ALKALINE PHOSPHATASE (test 76 U/L code = 2204) AST (test code = 2218) 26 U/L ALT (test code = 2219) 37 U/L [id number] 00:00:00 Test Item Value Reference Range Interpretation Comments TSH, THIRD GENERATION (test 18.800 UIU/ML code = 2821) [id number] 00:00:00 Test Item Value Reference Range Interpretation Comments TSH, THIRD GENERATION (test 18.800 UIU/ML code = 2821) [id number] 00:00:00 Test Item Value Reference Range Interpretation Comments TSH, THIRD GENERATION (test 18.800 UIU/ML code = 2821) LIPID [id number] 00:00:00 Test Item Value Reference Range Interpretation Comments CHOLESTEROL (test code = 2210) 142 MG/DL TRIGLYCERIDES (test code = 2232) 82 MG/DL HDL CHOLESTEROL (test code = 2220) 54 MG/DL CALC LDL CHOL (test code = 2237) 72 MG/DL RISK RATIO LDL/HDL (test code = 1.33 RATIO 2238) LIPID [id number] 00:00:00 Test Item Value Reference Range Interpretation Comments CHOLESTEROL (test code = 2210) 142 MG/DL TRIGLYCERIDES (test code = 2232) 82 MG/DL HDL CHOLESTEROL (test code = 2220) 54 MG/DL CALC LDL CHOL (test code = 2237) 72 MG/DL RISK RATIO LDL/HDL (test code = 1.33 RATIO 2238) VALPROIC [id number] 00:00:00 Test Item Value Reference Range Interpretation Comments VALPROIC ACID (test code = 3025) 46.7 UG/ML VALPROIC [id number] 00:00:00 Test Item Value Reference Range Interpretation Comments VALPROIC ACID (test code = 3025) 46.7 UG/ML CBC W/AUTO [id number] 00:00:00 Test Item Value Reference Range Interpretation [...] NUCLEATED RBCS (test code = 0.00 K/UL 17165) CBC W/AUTO [id number] 00:00:00 Test Item Value Reference Range Interpretation [...] NUCLEATED RBCS (test code = 0.00 K/UL 05986) CBC W/AUTO [id number] 00:00:00 Test Item Value Reference Range Interpretation [...] NUCLEATED RBCS (test code = 0.00 K/UL 27671) COMPREHENSIVE METABOLIC [id number] 00:00:00 Test Item Value Reference Range Interpretation Comments GLUCOSE (test code = 2217) 83 MG/DL BUN (test code = 2208) 14 MG/DL CREATININE (test code = 2214) 0.66 MG/DL eGFR AMER. (test code 148 ML/MIN/1.73 = 04739) eGFR NON- AMER. (test 128 ML/MIN/1.73 code = 58495) CALC BUN/CREAT (test code = 21 RATIO 2235) SODIUM (test code = 2231) 139 MEQ/L POTASSIUM (test code = 2228) 4.1 MEQ/L CHLORIDE (test code = 2215) 103 MEQ/L CARBON DIOXIDE (test code = 22 MEQ/L 220) CALCIUM (test code = 2209) 9.1 MG/DL [...] code = 2219) 37 U/L COMPREHENSIVE METABOLIC [id number] 00:00:00 Test Item Value Reference Range Interpretation Comments GLUCOSE (test code = 2217) 83 MG/DL BUN (test code = 2208) 14 MG/DL CREATININE (test code = 2214) 0.66 MG/DL eGFR AMER. (test code 148 ML/MIN/1.73 = 83615) eGFR NON- AMER. (test 128 ML/MIN/1.73 code = 05783) CALC BUN/CREAT (test code = 21 RATIO 2235) SODIUM (test code = 2231) 139 MEQ/L POTASSIUM (test code = 2228) 4.1 MEQ/L CHLORIDE (test code = 2215) 103 MEQ/L CARBON DIOXIDE (test code = 22 MEQ/L 2205) CALCIUM (test code = 2209) 9.1 MG/DL PROTEIN, TOTAL (test code = 6.5 G/DL 2228) ALBUMIN (test code = 2201) 4.4 G/DL CALC GLOBULIN (test code = 2.1 G/DL 2239) CALC A/G RATIO (test code = 2.1 RATIO 2233) BILIRUBIN, TOTAL (test code = 0.2 MG/DL 2206) ALKALINE PHOSPHATASE (test 76 U/L code = 2204) AST (test code = 2218) 26 U/L ALT (test code = 2219) 37 U/L [id number] 00:00:00 Test Item Value Reference Range Interpretation Comments TSH, THIRD GENERATION (test 18.800 UIU/ML code = 2821) [id number] 00:00:00 Test Item Value Reference Range Interpretation Comments TSH, THIRD GENERATION (test 18.800 UIU/ML code = 2821) [id number] 00:00:00 Test Item Value Reference Range Interpretation Comments TSH, THIRD GENERATION (test 18.800 UIU/ML code = 2821) LIPID [id number] 00:00:00 Test Item Value Reference Range Interpretation Comments CHOLESTEROL (test code = 2210) 142 MG/DL TRIGLYCERIDES (test code = 2232) 82 MG/DL HDL CHOLESTEROL (test code = 2220) 54 MG/DL CALC LDL CHOL (test code = 2237) 72 MG/DL RISK RATIO LDL/HDL (test code = 1.33 RATIO 2238) LIPID [id number] 00:00:00 Test Item Value Reference Range Interpretation Comments CHOLESTEROL (test code = 2210) 142 MG/DL TRIGLYCERIDES (test code = 2232) 82 MG/DL HDL CHOLESTEROL (test code = 2220) 54 MG/DL CALC LDL CHOL (test code = 2237) 72 MG/DL RISK RATIO LDL/HDL (test code = 1.33 RATIO 2238) VALPROIC [id number] 00:00:00 Test Item Value Reference Range Interpretation Comments VALPROIC ACID (test code = 3025) 46.7 UG/ML VALPROIC [id number] 00:00:00 Test Item Value Reference Range Interpretation Comments VALPROIC ACID (test code = 3025) 46.7 UG/ML VALPROIC [id number] 00:00:00 Test Item Value Reference Range Interpretation Comments VALPROIC ACID (test code = 3025) 72.2 UG/ML VALPROIC [id number] 00:00:00 Test Item Value Reference Range Interpretation Comments VALPROIC ACID (test code = 3025) 72.2 UG/ML LIPID [id number] 00:00:00 Test Item Value Reference Range Interpretation Comments CHOLESTEROL (test code = 2210) 135 MG/DL TRIGLYCERIDES (test code = 2232) 111 MG/DL HDL CHOLESTEROL (test code = 2220) 51 MG/DL CALC LDL CHOL (test code = 2237) 65 MG/DL RISK RATIO LDL/HDL (test code = 1.27 RATIO 2238) LIPID [id number] 00:00:00 Test Item Value Reference Range Interpretation Comments CHOLESTEROL (test code = 2210) 135 MG/DL TRIGLYCERIDES (test code = 2232) 111 MG/DL HDL CHOLESTEROL (test code = 2220) 51 MG/DL CALC LDL CHOL (test code = 2237) 65 MG/DL RISK RATIO LDL/HDL (test code = 1.27 RATIO 2238) VITAMIN D, 25 [id number] 00:00:00 Test Item Value Reference Range Interpretation Comments VITAMIN D, 25 OH (test code = 4958) 25 NG/ML VITAMIN D, 25 [id number] 00:00:00 Test Item Value Reference Range Interpretation Comments VITAMIN D, 25 OH (test code = 4958) 25 NG/ML VITAMIN [id number] 00:00:00 Test Item Value Reference Range Interpretation Comments VITAMIN B-12 (test code = 2840) 481 PG/ML VITAMIN [id number] 00:00:00 Test Item Value Reference Range Interpretation Comments VITAMIN B-12 (test code = 2840) 481 PG/ML VITAMIN [id number] 00:00:00 Test Item Value Reference Range Interpretation Comments VITAMIN B-12 (test code = 2840) 481 PG/ML VALPROIC [id number] 00:00:00 Test Item Value Reference Range Interpretation Comments VALPROIC ACID (test code = 3025) 72.2 UG/ML VALPROIC [id number] 00:00:00 Test Item Value Reference Range Interpretation Comments VALPROIC ACID (test code = 3025) 72.2 UG/ML LIPID [id number] 00:00:00 Test Item Value Reference Range Interpretation Comments CHOLESTEROL (test code = 2210) 135 MG/DL TRIGLYCERIDES (test code = 2232) 111 MG/DL HDL CHOLESTEROL (test code = 2220) 51 MG/DL CALC LDL CHOL (test code = 2237) 65 MG/DL RISK RATIO LDL/HDL (test code = 1.27 RATIO 2238) LIPID [id number] 00:00:00 Test Item Value Reference Range Interpretation Comments CHOLESTEROL (test code = 2210) 135 MG/DL TRIGLYCERIDES (test code = 2232) 111 MG/DL HDL CHOLESTEROL (test code = 2220) 51 MG/DL CALC LDL CHOL (test code = 2237) 65 MG/DL RISK RATIO LDL/HDL (test code = 1.27 RATIO 2238) VITAMIN D, 25 [id number] 00:00:00 Test Item Value Reference Range Interpretation Comments VITAMIN D, 25 OH (test code = 4958) 25 NG/ML VITAMIN D, 25 [id number] 00:00:00 Test Item Value Reference Range Interpretation Comments VITAMIN D, 25 OH (test code = 4958) 25 NG/ML VITAMIN [id number] 00:00:00 Test Item Value Reference Range Interpretation Comments VITAMIN B-12 (test code = 2840) 481 PG/ML VITAMIN [id number] 00:00:00 Test Item Value Reference Range Interpretation Comments VITAMIN B-12 (test code = 2840) 481 PG/ML VITAMIN [id number] 00:00:00 Test Item Value Reference Range Interpretation Comments VITAMIN B-12 (test code = 2840) 481 PG/ML CHLAMYDIA, AMPLIFIED, [id number] 00:00:00 Test Item Value Reference Range Interpretation Comments CHLAMYDIA, NAAT (test code = 95034) NEGATIVE CHLAMYDIA, AMPLIFIED, [id number] 00:00:00 Test Item Value Reference Range Interpretation Comments CHLAMYDIA, NAAT (test code = 53668) NEGATIVE GC, AMPLIFIED, [id number] 00:00:00 Test Item Value Reference Range Interpretation Comments GONORRHEA, NAAT (test code = 27708) NEGATIVE GC, AMPLIFIED, [id number] 00:00:00 Test Item Value Reference Range Interpretation Comments GONORRHEA, NAAT (test code = 21189) NEGATIVE CHLAMYDIA, AMPLIFIED, [id number] 00:00:00 Test Item Value Reference Range Interpretation Comments CHLAMYDIA, NAAT (test code = 00517) NEGATIVE CHLAMYDIA, AMPLIFIED, [id number] 00:00:00 Test Item Value Reference Range Interpretation Comments CHLAMYDIA, NAAT (test code = 68477) NEGATIVE GC, AMPLIFIED, [id number] 00:00:00 Test Item Value Reference Range Interpretation Comments GONORRHEA, NAAT (test code = 91586) NEGATIVE GC, AMPLIFIED, [id number] 00:00:00 Test Item Value Reference Range Interpretation Comments GONORRHEA, NAAT (test code = 29927) NEGATIVE VAGINAL PATHOGENS DNA [id number] 00:00:00 Test Item Value Reference Range Interpretation Comments DEDRA SPECIES (test code = ) NEGATIVE G. VAGINALIS (test code = 25876) NEGATIVE T. VAGINALIS (test code = 02077) NEGATIVE VAGINAL PATHOGENS DNA [id number] 00:00:00 Test Item Value Reference Range Interpretation Comments DEDRA SPECIES (test code = 64815) NEGATIVE G. VAGINALIS (test code = 31991) NEGATIVE T. VAGINALIS (test code = 38047) NEGATIVE VAGINAL PATHOGENS DNA [id number] 00:00:00 Test Item Value Reference Range Interpretation Comments DEDRA SPECIES (test code = 71874) NEGATIVE G. VAGINALIS (test code = 10961) NEGATIVE T. VAGINALIS (test code = 43399) NEGATIVE VAGINAL PATHOGENS DNA [id number] 00:00:00 Test Item Value Reference Range Interpretation Comments DEDRA SPECIES (test code = 05289) NEGATIVE G. VAGINALIS (test code = 90913) NEGATIVE T. VAGINALIS (test code = 95181) NEGATIVE SURGICAL [id number] 07:49:00 RUN DATE: 08/24/18 [facility] *LIVE* PAGE 1 RUN TIME: 748 Specimen Inquiry RUN USER: INTERFACE --------- ---PATIENT: MARCO WYLIE LOC: ED U #: [id number] AGE/SX: 18/F ROOM: RE08/20/18[facility] DR: Rajendra Salas MD : 01 BED: DIS: STATUS: [facility] TLOC: SPEC #: [id number] RECD: 08/20/18 STATUS:JENNA RECarlos Manuel #: [id number] MARVIN: 08/20/[address]: Rajendra Salas MD ENTERED: 08/22/18 SP TYPE: SURG SPEC OTHR DR: Gregory Thompson MD ORDERED: LEVEL 4 CODES: [id number] - ESOPHAGUS, NOS [id number] - STOMACH, NOS [id number] - SMALL INTESTINE COPIES TO: Rajendra Salas MD [address] [place] [address] [id number] [place] [address] Gregory Thompson MD [address] [place] [id number] PROCEDURES: GM LEVEL 4 (Incomplete) TISSUES: 1. [...] CONTINUED ON NEXT PAGE RUN DATE: 08/24/18 [facility] *LIVE* PAGE 2 RUN TIME: 748 Specimen Inquiry RUN USER: INTERFACE -------- ----SPEC #: [id number] PATIENT: MARCO WYLIE #[id number] (Continued) GROSS AND MICROSCOPIC GROSS EXAMINATION: Received [...] tissue, measuring up to 0.4 cm. in greatestdimension each (C). 4. Esophagus, mid, bx.: 2 [...] Sections of the "Esophagus, distal, bx." reveal changesof acanthosis and chronic inflammation. These changes are consistent with reflux esophagitis. The Alcian blue/PAS stain does not show specialized intestinal metaplasia. No definite evidence of malignancy is identified. (When special stains have been reviewed, the appropriate positive/negative controlshave been reviewed and are appropriately positive/negative). Sections [...] CONTINUED ON NEXT PAGE RUN DATE: 08/24/18 [facility] *LIVE* PAGE 3 RUN TIME: 748 Specimen Inquiry RUN USER: INTERFACE SPEC #: [id number] PATIENT: MARCO WYLIE #[id number] (Continued)---- -------- PRE-OP DIAGNOSIS Abdominal pain Signed SIGNATURE ON FILE Sonia Kennedy MD 08/24/18 0749 END OF REPORT CBC W/AUTO [id number] 09:10:00 Test Item Value Reference Range Interpretation [...] (test code NO = MDIFF) HCG SERUM [id number] 09:09:00 Test Item Value Reference Range Interpretation Comments HCG SERUM QUAL (test code = SERUM NEGATIVE NEGATIVE HCGQL)
--- NOTE | 2022-08-25 16:44 | EDPHYS ---
Physician Documentation [facility] Name: Rissa Sales Age: 22 yrs Sex: Female : 2000 Arrival Date: 08/25/2022 Time: 16:09 Bed 12 Private MD: ED Physician Jake Starkey HPI: 08/25 16:44 This 22 yrs old Female presents to ER via Ambulatory with complaints of Breast Lump. ms3 16:44 22-year-old female with past medical history of depression, hypothyroidism presents for ms3 a lump on her right breast. Patient states she had the lump checked out at a community clinic 2 weeks ago and has an appointment at the [facility] in [place] in October. Patient states the lump has become larger and now is warm and red. Patient denies nausea, vomiting, fevers, chills, nipple discharge.. Historical: - Allergies: 16:37 Lexapro; iw - Home Meds: 16:37 Abilify Oral [Active]; Depakote Oral [Active]; Hydroxyzine Oral [Active]; levothyroxine iw oral [Active]; - PMHx: 16:37 Depression; Hypothyroidism; iw ROS: 16:44 Constitutional: Negative for fever, and chills. Neck: Negative for injury, pain, and ms3 swelling, Cardiovascular: Negative for chest pain, and palpitations. Respiratory: Negative for shortness of breath, cough, wheezing, and pleuritic chest pain, Abdomen/GI: Negative for abdominal pain, nausea, vomiting, diarrhea, and constipation, MS/Extremity: Negative for injury and deformity. 16:44 : 16:44 Skin: Positive for mass right breast with overlying erythema. Exam: 16:44 Constitutional: This is a well developed, well nourished patient who is awake, alert, ms3 and in no acute distress. Head/Face: Normocephalic, atraumatic. Neck: Trachea midline, no cervical lymphadenopathy. Supple, full range of motion without nuchal rigidity, or vertebral point tenderness. No Meningismus. Chest/axilla: Normal chest wall appearance and motion. Nontender with no deformity. Cardiovascular: Regular rate and rhythm with a normal S1 and S2. No gallops, murmurs, or rubs. Normal PMI, no JVD. No pulse deficits. Respiratory: Lungs have equal breath sounds bilaterally, clear to auscultation and percussion. No rales, rhonchi or wheezes noted. No increased work of breathing, no retractions or nasal flaring. Abdomen/GI: Soft, non-tender, with normal bowel sounds. No distension or tympany. No guarding or rebound. No evidence of tenderness throughout. 16:44 Chest/axilla: Breasts: cellulitis, that is mild of the right breast, mass(es), that is moderate-sized, in the right breast, that is tender, that is freely movable. Vital Signs: 16:54 BP 124 / 65; Pulse 79; Resp 16; Temp 97.4; Pulse Ox 98% on R/A; iw 16:54 BP 136 / 88; Pulse 88; Resp 18; Pulse Ox 99% on R/A; mb9 MDM: 16:43 Patient medically screened. ms3 16:44 Differential Diagnosis Abscess vs cellulitis vs Fat necrosis (hx of trauma) vs Cancer. ms3 Data reviewed: vital signs, nurses notes, and as a result, I will discharge patient. Counseling: I had a detailed discussion with the patient and/or guardian regarding: the historical points, exam findings, and any diagnostic results supporting the discharge/admit diagnosis, the need for outpatient follow up, to return to the emergency department if symptoms worsen or persist or if there are any questions or concerns that arise at home. ED course: Discussed physical exam findings with patient. Patient to follow-up with Dr. Chavira in 2 to 3 days. Patient understands and agrees with plan. All questions were answered. Return precautions discussed include fevers, chills, worsening symptoms, or any other concerns.. Administered Medications: No medications were administered Disposition Summary: 08/25/22 16:44 Discharge Ordered Location: Home ms3 Condition: Stable ms3 Diagnosis - Breast Cellulitis ms3 - Breast Mass ms3 Followup: ms3 - With: Nate Chavira MD - When: 2 - 3 days - Reason: Recheck today's complaints Discharge Instructions: - Discharge Summary Sheet ms3 - Cellulitis, Adult, [id number] ms3 Forms: - Medication Reconciliation Form ms3 - Thank You Letter ms3 - Antibiotic Education ms3 - Prescription Opioid Use ms3 Prescriptions: - Doxycycline Hyclate 100 mg Oral Tablet - take 1 tablet by ORAL route every 12 hours; 20 tablet; Refills: 0, Product ms3 Selection Permitted Signatures: Sylvie Mcintosh, RUBY RN iw Jake Starkey, DO ms3
--- NOTE | 2022-08-25 16:44 | ER ---
Nurse's Notes [facility] Name: Rissa Sales Age: 22 yrs Sex: Female : 2000 Arrival Date: 08/25/2022 Time: 16:09 Bed 12 Private MD: Diagnosis: Breast Cellulitis;Breast Mass Presentation: 08/25 16:37 Chief complaint: Patient states: lump in right breast X 2 weeks, red, hot to touch. iw Coronavirus screen: At this time, the client does not indicate any symptoms associated with coronavirus-19. Ebola Screen: Patient negative for fever greater than or equal to 101.5 degrees Fahrenheit, and additional compatible Ebola Virus Disease symptoms Patient denies exposure to infectious person. Patient denies travel to an Ebola-affected area in the 21 days before illness onset. No symptoms or risks identified at this time. Initial Sepsis Screen: Does the patient meet any 2 criteria? No. Patient's initial sepsis screen is negative. Does the patient have a suspected source of infection? No. Patient's initial sepsis screen is negative. Risk Assessment: Do you want to hurt yourself or someone else? Patient reports no desire to harm self or others. 16:37 Method Of Arrival: Ambulatory iw 16:37 Acuity: QUANG 4 iw Historical: - Allergies: 16:37 Lexapro; iw - Home Meds: 16:37 Abilify Oral [Active]; Depakote Oral [Active]; Hydroxyzine Oral [Active]; levothyroxine iw oral [Active]; - PMHx: 16:37 Depression; Hypothyroidism; iw Screenin:54 [facility] ED Fall Risk Assessment (Adult) History of falling in the last 3 months, mb9 including since admission No falls in past 3 months (0 pts) Confusion or Disorientation No (0 pts) Intoxicated or Sedated No (0 pts) Impaired Gait No (0 pts) Mobility Assist Device Used No (0 pt) Altered Elimination No (0 pt) Score/Fall Risk Level 0 - 2 = Low Risk Oriented to surroundings, Maintained a safe environment, Educated pt \T\ family on fall prevention, incl call for assistance when getting out of bed. Abuse screen: Denies threats or abuse. Nutritional screening: No deficits noted. Tuberculosis screening: No symptoms or risk factors identified. Assessment: 16:50 General: Appears in no apparent distress. comfortable. Pain: Complains of pain in right mb9 breast Quality of pain is described as burning, aching. Neuro: Level of Consciousness is awake, alert, obeys commands. Respiratory: Airway is patent Respiratory effort is even, unlabored, Respiratory pattern is regular, symmetrical. Derm: right breast is red and warm to touch. Musculoskeletal: Range of motion: intact in all extremities. Vital Signs: 16:54 BP 124 / 65; Pulse 79; Resp 16; Temp 97.4; Pulse Ox 98% on R/A; iw 16:54 BP 136 / 88; Pulse 88; Resp 18; Pulse Ox 99% on R/A; mb9 ED Course: 16:09 Patient arrived in ED. am2 16:19 Jake Starkey DO is Attending Physician. ms3 16:37 Triage completed. iw 16:38 Arm band placed on. iw 16:43 Juanis Brizuela, RUBY is Primary Nurse. mb9 16:43 Nate Chavira MD is Referral Physician. ms3 16:45 Bed in low position. Call light in reach. Side rails up X 1. Client placed on mb9 continuous cardiac and pulse oximetry monitoring. NIBP monitoring applied. 16:54 No provider procedures requiring assistance completed. Patient did not have IV access mb9 during this emergency room visit. Administered Medications: No medications were administered Outcome: 16:44 Discharge ordered by . ms3 16:55 Discharged to home ambulatory. mb9 16:55 Condition: stable 16:55 Discharge instructions given to patient, Instructed on discharge instructions, follow up and referral plans. Demonstrated understanding of instructions, follow-up care, medications, Prescriptions given X 1. 16:55 Patient left the ED. mb9 Signatures: Sylvie Mcintosh, RN RN Erlinda Kyle am2 Jake Starkey DO DO ms3 Juanis Brizuela RN RN mb9 Corrections: (The following items were deleted from the chart) 16:43 16:37 Acuity: QUANG 3 iw iw
[2022-08-25 17:55] VITALS: BP 136/88; TEMP 97.4; O2SAT 99
== END 2022-08-25 16:55 | disposition home or self-care (01) ==
LOC: ER 16:06
DX: N61.0 Mastitis without abscess (principal); Z88.8 Allergy status to other drugs, medicaments and biological substances
CPT/HCPCS: 99282

== ENCOUNTER 2022-09-02 19:53 | Emergency (ER) | payer OTHER ==
--- OUTSIDE RECORDS SUMMARY | 2022-09-02 20:00 | XMS REPORT | Continuity of Care Document ---
:2001 Author Organization [facility] t Address [address] [facility] [address] [place] [address] Care Team Providers Name Role Phone Satish Barajas Primary Care Physician [phone] CECILIA PAVON M.D. Attending Clinician Unavailable Payers [...] Allergie 2-14 Clear s 00:00: Duff 00 [facility] Lexapro drug Active UT TABS allergy Physici [...] 2mg mg tablet 1-19 00:00: 00 Dose 2-0 No Unknown 1-19 00:00: 00 buspirone 5 2021-0 No 1mg mg tablet -19 00:00: 00 Depakote 2021-0 No 1mg 250 mg -19 tablet,sakina 00:00: yed release 00 Abilify 2 2-0 No 2mg mg tablet -19 00:00: 00 Dose 2021-0 No Unknown 1-19 00:00: 00 cholecalcif 2020-1 No 1(1,000 arelis 2-09 unit) (vitamin 00:00: D3) 25 mcg 00 (1,000 unit) tablet cholecalcif 2020-1 No 1(1,000 arelis 2-09 unit) (vitamin 00:00: D3) 25 mcg 00 (1,000 unit) tablet levothyroxi 2020-1 No 1mcg ne 88 mcg [...] 1mg mg tablet 7 00:00: 00 Depakote 2021-0 No 3mg 250 mg 7-30 tablet,sakina 00:00: yed release 00 Depakote 1-0 No 3mg 250 mg 7-29 tablet,sakina 00:00: yed release 00 Abilify 2 1-0 No 1mg mg tablet 7 00:00: 00 Depakote 2021-0 No 3mg 250 mg 7-29 tablet,sakina 00:00: [...] 00:00: prim 160 mg 00 tablet Depakote 2021-0 No 1mg 250 mg 7-21 tablet,sakina 00:00: yed release 00 Depakote 2021-0 No 1mg 250 mg 7-19 tablet,sakina 00:00: yed release 00 Depakote 2021-0 No 1mg 250 mg 7-19 tablet,sakina 00:00: yed release 00 Dose 2021-0 No Unknown 7-14 00:00: 00 Depakote 2021-0 No 1mg 500 mg 7-14 tablet,sakina 00:00: yed release 00 Dose 2021-0 No Unknown 7-14 00:00: 00 Dose 2021-0 [...] Goal Plan of Care Note [code = 76747-7] Goal Plan of Care Note [code = 79135-9] Goal Plan of Care Note [code = 40477-0] Goal Plan of Care Note [code = 14292-9] Goal Plan of Care Note [code = 11249-4] Goal Plan of Care Note [code = 88822-0] Goal Plan of Care Note [code = 27360-6] Goal Plan of Care Note [code = 38978-7] Goal Plan of Care Note [code = 67171-6] Goal Plan of Care Note [code = 35802-3] Goal Plan of Care Note [code = 44667-3] Goal Plan of Care Note [code = 46441-6] Goal Plan of Care Note [code = 80550-4] Goal Plan of Care Note [code = 89859-1] Goal Plan of Care Note [code = 01772-0] Goal Plan of Care Note [code = 00146-9] Goal Plan of Care Note [code = 54094-1] Goal Plan of Care Note [code = 21252-0] Goal Plan of Care Note [code = 17871-0] Goal Plan of Care Note [code = 04055-2] Goal Plan of Care Note [code = 47493-1] Goal Plan of Care Note [code = 10158-5] Goal Plan of Care Note [code = 47624-2] Goal Plan of Care Note [code = 32808-5] Goal Plan of Care Note [code = 30666-0] Goal Plan of Care Note [code = 86471-5] Goal Plan of Care Note [code = 48854-1] Goal Plan of Care Note [code = 58761-8] Goal Plan of Care Note [code = 82890-9] Goal Plan of Care Note [code = 91491-4] Goal Plan of Care Note [code = 34699-7] Goal Plan of Care Note [code = 84076-5] Goal Plan of Care Note [code = 34842-1] Goal Plan of Care Note [code = 88096-9] Goal Plan of Care Note [code = 39402-4] Goal Plan of Care Note [code = 01115-2] Goal Plan of Care Note [code = 86185-1] Goal Plan of Care Note [code = 36441-9] Goal Plan of Care Note [code = 40474-7] Goal Plan of Care Note [code = 61326-5] Goal Plan of Care Note [code = 70765-4] Goal Plan of Care Note [code = 62742-5] Goal Plan of Care Note [code = 52055-6] Encounters Start End Encounter Admission Attending Care Care Encounter Source Date/Time Date/Time Type Type Clinicians Facility Department ID 2022-08-19 2022-08-19 Outpatient SFA SHAYNA [id number] Arpan 13:26:02 13:26:02 0217 F Layton 2022-08-09 2022-08-09 Outpatient SFA SFA [id number] Arpan 17:48:14 17:48:14 0207 F Layton 2022-07-07 2022-07-07 Outpatient SFA SFA [id number] Arpan 16:28:54 16:28:54 0105 F Layton 2022-06-29 2022-06-29 Outpatient SFA SFA [id number] Arpan 10:06:08 10:06:08 1228 F Layton 2022-06-29 2022-06-29 Outpatient [id number] 00:00:00 00:00:00 Visit [id number] 2022-03-24 2022-03-24 Outpatient [id number] 00:00:00 00:00:00 Visit 0905-8982 [id number] 2018-05-08 2018-05-08 [facility] Orthopedics 46 [id number] MS 08:45:00 08:45:00 t; CECILIA at [facility] Marlene Camargo i, M.D. 2018-05-01 2018-05-01 [facility] Orthopedics 46 [id number] MS 09:30:00 09:30:00 t; lorenzo BROOKS [facility] Marlene Camargo i, M.D. Results Test Description Test Time Test Comments Results Result Comments Source TSH, THIRD GENERATION 2022-08-22 03:08:15 Test Item Value Reference Range Interpretation Comme nts TSH, THIRD GENERATION (test code = 2821) 3.850 UIU/ML 0.400-4.100 VITAMIN D, 25 [id number] 03:08:02 Test Item Value Reference Range Interpretation [...] ALL TESTING PERFORM ED AT [facility]Y [facility]. [address], [place] CLIA: [id number], CAP : [id number] PAP TEST, THINPREP, [id number] 13:57:55 Test Item Value Reference Range Interpretation Comments SOURCE: (test Cervical/Endoc code = 8001) ervical SLIDES: (test 1 code = 8011) LMP: (test code 05/29/2022 = 8021) SPECIMEN (NOTE) Satisfactory f or ADEQUACY: (test evaluation. Endocervical code = 12915) cells/transfor mation zone component present. INTERPRETATION: NILM/NO EPITH. (test code = ABNORMALITY;SE 55672) E BELOW ------- NEGATIVE FO R INTRAEPITHELIAL LESION OR MALIGNANCY ( NILM) --------- --------- --------- - OTHER COMMENTS: (NOTE) Shift in allyn ra (test code = suggestive of b acterial 8081) vaginosis. DIRECTOR OF BUSINESS SERVICES Marina : (test code = JOSÉ Ken(ASC 8101) P) QC TECHNOLOGIST: Duc (test code = MARCELLA Davies( 8111) CP),[facility] LOCATION: (test (NOTE) Specimens pr ocessed and code = 84754) interpreted [facility] [address] [place] [address], , CLIA: [id number] CPT: (test code (NOTE) 88225 UNLESS OTHERWISE = 8140) INDICATED, COMP UTER [...] consolidated pr ior Pap history is avai lable as applicable. HPV HIGH IF ABNORMAL [id number] 13:57:55 Test Item Value Reference Range Interpretation Comments HPV HIGH IF ABNORMAL CRITERIA NOT MET THINPREP (test code = 66925) PAP TEST, THINPREP, [id number] 00:00:00 Test Item Value Reference Range Interpretation Comments SOURCE: (test code = Cervical/Endocervical 8001) SLIDES: (test code = 1 8011) LMP: (test code = 8021) 05/29/2022 SPECIMEN ADEQUACY: (test (NOTE) code = 72375) INTERPRETATION: (test NILM/NO EPITH. code = 57328) ABNORMALITY;SEE BELOW OTHER COMMENTS: (test (NOTE) code = 8081) DIRECTOR OF BUSINESS SERVICES: (test Marina code = 8101) JOSÉ Ken(ASCP) QC TECHNOLOGIST: (test Duc code = 8111) MARCELLA Davies(ASCP),[facility] LOCATION: (test code = (NOTE) 58874) CPT: (test code = 8140) (NOTE) PAP TEST, THINPREP, [id number] 00:00:00 Test Item Value Reference Range Interpretation Comments SOURCE: (test code = Cervical/Endocervical 8001) SLIDES: (test code = 1 8011) LMP: (test code = 8021) 05/29/2022 SPECIMEN ADEQUACY: (test (NOTE) code = 86414) INTERPRETATION: (test NILM/NO EPITH. code = 96420) ABNORMALITY;SEE BELOW OTHER COMMENTS: (test (NOTE) code = 8081) DIRECTOR OF BUSINESS SERVICES: (test Marina code = 8101) JOSÉ Ken(ASCP) QC TECHNOLOGIST: (test Duc code = 8111) KekeSCT(ASCP),[facility] LOCATION: (test code = (NOTE) 05407) CPT: (test code = 8140) (NOTE) HPV HIGH IF ABNORMAL THINPREP [ADDED]2022-07-01 00:00:00 Test Item Value Reference Range Interpretation Comments HPV HIGH IF ABNORMAL CRITERIA NOT MET THINPREP (test code = 77667) HPV HIGH IF ABNORMAL THINPREP [ADDED]2022-07-01 00:00:00 Test Item Value Reference Range Interpretation Comments HPV HIGH IF ABNORMAL CRITERIA NOT MET THINPREP (test code = 05761) VAGINAL PATHOGENS DNA [id number] 15:24:15 Test Item Value Reference Range Interpretation [...] Trichomonas vag inalis nucleic acid. CT/NG, NAAT, [id number] 08:59:42 Test Item Value Reference Range Interpretation Comments CHLAMYDIA, NAAT, NEGATIVE NEGATIVE A negative result does THINPREP (test code not excl ude low level = 49738) infection, specimensamplin g error, or collection erro r. Testing is performed wi th the [employer] 680 systems usingre al-time Polymerase Cody n Reaction (PCR) method. GONORRHEA, NAAT, NEGATIVE NEGATIVE A negative result does THINPREP (test code not excl ude low level = 09291) infection, specimensamplin g error, or collection erro r. Testing is performed wi th the Lisa [facility] 680 systems usingre al-time Polymerase Cody n Reaction (PCR) method. U NLESS OTHERWISE INDIC ATED, ALL TESTING PERFORM ED ATCLINICAL PATH [facility], [facility]. [address] [place] [address] LABORATORY DIRE CTOR: Autumn BUCHANAN. CLIA NUMBER [id number] CAP ACCREDITATION N O. [id number] HIV 1/2 4TH GEN, RFLX [id number] 08:02:13 Test Item Value Reference Range Interpretation Comments HIV 1/2 4TH GEN, RFLX CONF (test NON-REACTIVE NON-REACTIVE code = 3514) HEPATITIS PANEL, [id number] 08:02:13 Test Item Value Reference Interpretation Comments [...] (test shows no evidence of code = 00014) past exposure to orcurrent infec tion with hepatitis B vir us. No evidence of hep atitis Bimmunization i s identified. INTERPRETATION (NOTE) Hepatitis C serology HEPATITIS C: (test shows no evidence of code = 18323) exposure to he patitisC virus at this t mohinder. It can take up to 12 months after exposure tothe hepatitis C vir us for antibodies to b ecome detectable in t he blood in certain sarah ents. HEPATITIS A [id number] 08:02:13 Test Item Value Reference Range Interpretation Comments HEPATITIS A IgM NON-REACTIVE NON-REACTIVE UNLESS OTHE RWISE (test code = 2728) INDICATED , ALL TESTING PERFORMED [facility], [address] DIRECTOR: PAPA BAH M.D. CLIA NUMBER [id number] CAP ACCREDITATION N O. [id number] RPR REFLEX TO T. PALLIDUM - [id number] 04:43:55 Test Item Value Reference Range Interpretation Comments RPR (test code = 43318) NON-REACTIVE NON-REACTIVE RPR TITER (test code = 3500) NOT INDIC. TITER NOT INDIC. VAGINAL PATHOGENS DNA [id number] 00:00:00 Test Item Value Reference Range Interpretation Comments DEDRA SPECIES (test code = 68282) NEGATIVE G. VAGINALIS (test code = ) POSITIVE T. VAGINALIS (test code = ) NEGATIVE VAGINAL PATHOGENS DNA [id number] 00:00:00 Test Item Value Reference Range Interpretation Comments DEDRA SPECIES (test code = ) NEGATIVE G. VAGINALIS (test code = ) POSITIVE T. VAGINALIS (test code = ) NEGATIVE RPR REFLEX TO T. PALLIDUM - [id number] 00:00:00 Test Item Value Reference Range Interpretation Comments RPR (test code = 26221) NON-REACTIVE RPR TITER (test code = 3500) NOT INDIC. TITER RPR REFLEX TO T. PALLIDUM - [id number] 00:00:00 Test Item Value Reference Range Interpretation Comments RPR (test code = 47432) NON-REACTIVE RPR TITER (test code = 3500) NOT INDIC. TITER HIV 1/2 4TH GEN, RFLX [id number] 00:00:00 Test Item Value Reference Range Interpretation Comments HIV 1/2 4TH GEN, RFLX CONF (test NON-REACTIVE code = 3514) CT/NG, TMA, [id number] 00:00:00 Test Item Value Reference Range Interpretation Comments CHLAMYDIA, NAAT, THINPREP (test code NEGATIVE = 50391) GONORRHEA, NAAT, THINPREP (test code NEGATIVE = 65748) CT/NG, TMA, [id number] 00:00:00 Test Item Value Reference Range Interpretation Comments CHLAMYDIA, NAAT, THINPREP (test code NEGATIVE = 65829) GONORRHEA, NAAT, THINPREP (test code NEGATIVE = 20520) HIV 1/2 4TH GEN, RFLX [id number] 00:00:00 Test Item Value Reference Range Interpretation Comments HIV 1/2 4TH GEN, RFLX CONF (test NON-REACTIVE code = 3514) HEPATITIS PROFILE (A,B,C)2022-06-30 00:00:00 Test Item Value Reference Range Interpretation Comments HEPATITIS A TOTAL AB (test code REACTIVE = 2725) HEPATITIS B SURF AG (test code = NON-REACTIVE 9) HEP B CORE TOTAL AB (test code = NON-REACTIVE 2728) HEPATITIS B SURFACE AB (test NON-REACTIVE code = 7) HEPATITIS C ANTIBODY (test code NON-REACTIVE = 4675) INTERPRETATION HEPATITIS A: (NOTE) (test code = 2552) INTERPRETATION HEPATITIS B: (NOTE) (test code = 03885) INTERPRETATION HEPATITIS C: (NOTE) (test code = 00783) HEPATITIS PROFILE (A,B,C)2022-06-30 00:00:00 Test Item Value [...] INTERPRETATION HEPATITIS B: (NOTE) (test code = 94971) INTERPRETATION HEPATITIS C: (NOTE) (test code = 52753) HEPATITIS A IgM [REFLEX]2022-06-30 00:00:00 Test Item Value Reference Range Interpretation Comments HEPATITIS A IgM (test code = NON-REACTIVE 8) VITAMIN D, 25 [id number] 07:10:30 Test Item Value Reference Range Interpretation Comments VITAMIN D, 25 OH 17 NG/ML SEE BELOW L NOTE: 25-H YDROXYVITAMIN D (test code = 4958) ASSAY INC LUDES 25-HYDROXYVITAM IN D2 AND D3. METHODOLOGY IS CHEMILUMINESCEN T IMMUNOASSAY. INTERPRETIVE RA NGES PEDIATRIC (<17 YEARS) . [...] ATED, ALL TESTING PERFORM ED ATCLINICAL PATH [facility], [place]. [address] [place] [address] LABORATORY DIRE CTOR: Autumn BUCHANAN. CLIA NUMBER [id number] CAP ACCREDITATION N O. [id number] TSH, THIRD [id number] 04:12:07 Test Item Value Reference Range Interpretation Comments TSH, THIRD GENERATION (test code 4.500 UIU/ML 0.400-4.100 H = 2821) [id number] 00:00:00 Test Item Value Reference Range Interpretation Comments TSH, THIRD GENERATION (test code 4.500 UIU/ML = 2821) [id number] 00:00:00 Test Item Value Reference Range Interpretation Comments TSH, THIRD GENERATION (test code 4.500 UIU/ML = 2821) [id number] 00:00:00 Test Item Value Reference Range Interpretation Comments TSH, THIRD GENERATION (test code 4.500 UIU/ML = 2821) VITAMIN D, 25 [id number] 00:00:00 Test Item Value Reference Range Interpretation Comments VITAMIN D, 25 OH (test code = 4958) 17 NG/ML VITAMIN D, 25 [id number] 00:00:00 Test Item Value Reference Range Interpretation Comments VITAMIN D, 25 OH (test code = 4958) 17 NG/ML [id number] 00:00:00 Test Item Value Reference Range Interpretation Comments TSH, THIRD GENERATION (test code 4.500 UIU/ML = 2821) [id number] 00:00:00 Test Item Value Reference Range Interpretation Comments TSH, THIRD GENERATION (test code 4.500 UIU/ML = 2821) [id number] 00:00:00 Test Item Value Reference Range Interpretation Comments TSH, THIRD GENERATION (test code 4.500 UIU/ML = 2821) VITAMIN D, 25 [id number] 00:00:00 Test Item Value Reference Range Interpretation Comments VITAMIN D, 25 OH (test code = 4958) 17 NG/ML VITAMIN D, 25 [id number] 00:00:00 Test Item Value Reference Range Interpretation Comments VITAMIN D, 25 OH (test code = 4958) 17 NG/ML VAGINAL PATHOGENS DNA [id number] 15:04:06 Test Item Value Reference Range Interpretation Comments DEDRA SPECIES (test code = 16334) POSITIVE NEGATIVE A G. VAGINALIS (test code = 62471) POSITIVE NEGATIVE A T. VAGINALIS (test code = 32625) NEGATIVE NEGATIVE HEPATITIS PANEL, [id number] 03:50:51 Test Item Value Reference Range Interpretation Comments HEPATITIS A IgM (test NON-REACTIVE NON-REACTIVE code = 70095) HEPATITIS B CORE IgM NON-REACTIVE NON-REACTIVE (test code = 4644) HEPATITIS B SURF AG NON-REACTIVE NON-REACTIVE (test code = 2739) HEPATITIS C ANTIBODY NON-REACTIVE NON-REACTIVE (test code = 4675) INTERPRETATION (NOTE) Hepatitis A HEPATITIS A: (test code sero logy shows no = 2552) evidence of acu te hepatitis A. INTERPRETATION (NOTE) Hepatitis B HEPATITIS B: (test code sero logy shows no = 97489) evidence of acu te hepatitis B and no indication of exposure to hepatitis B vir us in the previous eugene eight months. INTERPRETATION (NOTE) Hepatitis C HEPATITIS C: (test code sero logy shows no = 77427) evidence of exposure to hepatitisC viru s at this time. I t can take up to 12 months after exposure tothe hepatitis C vir us for antibodies to become detectab le in the blood in certain patient s. HIV 1/2 4TH GEN, RFLX [id number] 03:50:51 Test Item Value Reference Range Interpretation Comments HIV 1/2 4TH GEN, RFLX CONF (test NON-REACTIVE NON-REACTIVE code = 3514) [id number] 03:18:11 Test Item Value Reference Range Interpretation Comments RPR RESULT (test NON-REACTIVE NON-REACTIVE code = 3501) RPR TITER (test NOT INDIC. NOT INDIC. UNLESS OTHE RWISE code = 3500) TITER INDICATED, ALL TESTING PERFORMED [facility] [address] [place] [address] 4 LABORATORY DIRE CTOR: PAPA DWYER M.D. CLIA NUMBER [id number] [facility] [place] [id number] HIV AB/AG COMBO RFLX [id number] 00:00:00 Test Item Value Reference Range Interpretation Comments HIV 1/2 4TH GEN, RFLX CONF (test NON-REACTIVE code = 3514) HIV AB/AG COMBO RFLX [id number] 00:00:00 Test Item Value Reference Range Interpretation Comments HIV 1/2 4TH GEN, RFLX CONF (test NON-REACTIVE code = 3514) VAGINAL PATHOGENS DNA [id number] 00:00:00 Test Item Value Reference Range Interpretation Comments DEDRA SPECIES (test code = ) POSITIVE G. VAGINALIS (test code = ) POSITIVE T. VAGINALIS (test code = ) NEGATIVE VAGINAL PATHOGENS DNA [id number] 00:00:00 Test Item Value Reference Range Interpretation Comments DEDRA SPECIES (test code = ) POSITIVE G. VAGINALIS (test code = ) POSITIVE T. VAGINALIS (test code = ) NEGATIVE ACUTE HEPATITIS [id number] 00:00:00 Test Item Value Reference Range Interpretation Comments HEPATITIS A IgM (test code = NON-REACTIVE 16135) HEPATITIS B CORE IgM (test code NON-REACTIVE = 4644) HEPATITIS B SURF AG (test code = NON-REACTIVE 2739) HEPATITIS C ANTIBODY (test code NON-REACTIVE = 4675) INTERPRETATION HEPATITIS A: (NOTE) (test code = 2552) INTERPRETATION HEPATITIS B: (NOTE) (test code = 83597) INTERPRETATION HEPATITIS C: (NOTE) (test code = 54101) ACUTE HEPATITIS [id number] 00:00:00 Test Item Value Reference Range Interpretation Comments HEPATITIS A IgM (test code = NON-REACTIVE 88471) HEPATITIS B CORE IgM (test code NON-REACTIVE = 4644) HEPATITIS B SURF AG (test code = NON-REACTIVE 2739) HEPATITIS C ANTIBODY (test code NON-REACTIVE = 4675) INTERPRETATION HEPATITIS A: (NOTE) (test code = 2552) INTERPRETATION HEPATITIS B: (NOTE) (test code = 01514) INTERPRETATION HEPATITIS C: (NOTE) (test code = 57307) [id number] 00:00:00 Test Item Value Reference Range Interpretation Comments RPR RESULT (test code = NON-REACTIVE 3501) RPR TITER (test code = 3500) NOT INDIC. TITER [id number] 00:00:00 Test Item Value Reference Range Interpretation Comments RPR RESULT (test code = NON-REACTIVE 3501) RPR TITER (test code = 3500) NOT INDIC. TITER [id number] 00:00:00 Test Item Value Reference Range Interpretation Comments RPR RESULT (test code = NON-REACTIVE 3501) RPR TITER (test code = 3500) NOT INDIC. TITER HIV AB/AG COMBO RFLX [id number] 00:00:00 Test Item Value Reference Range Interpretation Comments HIV 1/2 4TH GEN, RFLX CONF (test NON-REACTIVE code = 3514) HIV AB/AG COMBO RFLX [id number] 00:00:00 Test Item Value Reference Range Interpretation Comments HIV 1/2 4TH GEN, RFLX CONF (test NON-REACTIVE code = 3514) VAGINAL PATHOGENS DNA [id number] 00:00:00 Test Item Value Reference Range Interpretation Comments DEDRA SPECIES (test code = ) POSITIVE G. VAGINALIS (test code = 61547) POSITIVE T. VAGINALIS (test code = 49454) NEGATIVE VAGINAL PATHOGENS DNA [id number] 00:00:00 Test Item Value Reference Range Interpretation Comments DEDRA SPECIES (test code = ) POSITIVE G. VAGINALIS (test code = 53554) POSITIVE T. VAGINALIS (test code = 96387) NEGATIVE ACUTE HEPATITIS [id number] 00:00:00 Test Item Value Reference Range Interpretation Comments HEPATITIS A IgM (test code = NON-REACTIVE 12866) HEPATITIS B CORE IgM (test code NON-REACTIVE = 4644) HEPATITIS B SURF AG (test code = NON-REACTIVE 2739) HEPATITIS C ANTIBODY (test code NON-REACTIVE = 4675) INTERPRETATION HEPATITIS A: (NOTE) (test code = 2552) INTERPRETATION HEPATITIS B: (NOTE) (test code = 57062) INTERPRETATION HEPATITIS C: (NOTE) (test code = 75274) ACUTE HEPATITIS [id number] 00:00:00 Test Item Value Reference Range Interpretation Comments HEPATITIS A IgM (test code = NON-REACTIVE 23127) HEPATITIS B CORE IgM (test code NON-REACTIVE = 4644) HEPATITIS B SURF AG (test code = NON-REACTIVE 2739) HEPATITIS C ANTIBODY (test code NON-REACTIVE = 4675) INTERPRETATION HEPATITIS A: (NOTE) (test code = 2552) INTERPRETATION HEPATITIS B: (NOTE) (test code = 52148) INTERPRETATION HEPATITIS C: (NOTE) (test code = 74977) [id number] 00:00:00 Test Item Value Reference Range Interpretation Comments RPR RESULT (test code = NON-REACTIVE 3501) RPR TITER (test code = 3500) NOT INDIC. TITER [id number] 00:00:00 Test Item Value Reference Range Interpretation Comments RPR RESULT (test code = NON-REACTIVE 3501) RPR TITER (test code = 3500) NOT INDIC. TITER [id number] 00:00:00 Test Item Value Reference Range Interpretation Comments RPR RESULT (test code = NON-REACTIVE 3501) RPR TITER (test code = 3500) NOT INDIC. TITER SARS-CoV-2 (COVID-19), RT-[id number] 17:22:51 Test Item Value Reference Interpretation Comments Range SARS-CoV-2 POSITIVE SEE NOTE A SARS-CoV-2 RNA INTERPRETATION DETECTEDPosit latosha results (test code = are indicative of the [address]) presence of SARAH BETH S-CoV-2 RNA;clinical co rrelation with patient hi story and other diagnosticinfor mation is necessary to de termine patient infecti on status.Positive results do not rule out bacterial infec tion or co-infectionwit h other viruses. Positi ve and negative predic tive values oftestin g are highly dependen t on prevalence. SOURCE (test code NASOPHARYNGEAL Note: M ethodology is = 64915) Lisa [facility] [place] l-Time RT-PCR. The exp ected result or [...] prov ided by method given in report:[email or web address] / Alternatively, see downloadable PD F fact sheet at:[email or web address]://www. [employer].c [email or web address]- PCR UNLESS OTHERWIS E INDICATED, ALL TESTING PERFORMED [facility] [address] [place] [address] 4 LABORATORY DIRE CTOR: PAPA DWYER M.D. CLIA NUMBER [id number] [place] [id number] SARS-CoV-2 (COVID-19) by RT-PCR (HIGH RISK)2021-07-11 00:00:00 Test Item Value Reference Range Interpretation Comments SARS-CoV-2 INTERPRETATION POSITIVE (test code = 69544) SOURCE (test code = 66452) NASOPHARYNGEAL SARS-CoV-2 (COVID-19) by RT-PCR (HIGH RISK)2021-07-11 00:00:00 Test Item Value Reference Range Interpretation Comments SARS-CoV-2 INTERPRETATION POSITIVE (test code = 04026) SOURCE (test code = 86353) NASOPHARYNGEAL SARS-CoV-2 (COVID-19) by RT-PCR (HIGH RISK)2021-07-11 00:00:00 Test Item Value Reference Range Interpretation Comments SARS-CoV-2 INTERPRETATION POSITIVE (test code = 99054) SOURCE (test code = 62639) NASOPHARYNGEAL SARS-CoV-2 (COVID-19) by RT-PCR (HIGH RISK)2021-07-11 00:00:00 Test Item Value Reference Range Interpretation Comments SARS-CoV-2 INTERPRETATION POSITIVE (test code = 27343) SOURCE (test code = 36762) NASOPHARYNGEAL [id number] 00:00:00 Test Item Value Reference Range Interpretation Comments TSH, THIRD GENERATION (test code 3.940 UIU/ML = 2821) [id number] 00:00:00 Test Item Value Reference Range Interpretation Comments TSH, THIRD GENERATION (test code 3.940 UIU/ML = 2821) [id number] 00:00:00 Test Item Value Reference Range Interpretation Comments TSH, THIRD GENERATION (test code 3.940 UIU/ML = 2821) T3 [id number] 00:00:00 Test Item Value Reference Range Interpretation Comments T3 TOTAL (test code = 2818) 135 NG/DL T3 [id number] 00:00:00 Test Item Value Reference Range Interpretation Comments T3 TOTAL (test code = 2818) 135 NG/DL T3 [id number] 00:00:00 Test Item Value Reference Range Interpretation Comments T3 TOTAL (test code = 2818) 135 NG/DL T4 (THYROXINE)2021-06-12 00:00:00 Test Item Value Reference Range Interpretation Comments T4 (THYROXINE) (test code = 2819) 6.9 UG/DL T4 (THYROXINE)2021-06-12 00:00:00 Test Item Value Reference Range Interpretation Comments T4 (THYROXINE) (test code = 2819) 6.9 UG/DL VALPROIC [id number] 00:00:00 Test Item Value Reference Range Interpretation Comments VALPROIC ACID (test code = 3025) 43.2 UG/ML VALPROIC [id number] 00:00:00 Test Item Value Reference Range Interpretation Comments VALPROIC ACID (test code = 3025) 43.2 UG/ML [id number] 00:00:00 Test Item Value Reference Range Interpretation Comments TSH, THIRD GENERATION (test code 3.940 UIU/ML = 2821) [id number] 00:00:00 Test Item Value Reference Range Interpretation Comments TSH, THIRD GENERATION (test code 3.940 UIU/ML = 2821) [id number] 00:00:00 Test Item Value Reference Range Interpretation Comments TSH, THIRD GENERATION (test code 3.940 UIU/ML = 2821) T3 [id number] 00:00:00 Test Item Value Reference Range Interpretation Comments T3 TOTAL (test code = 2818) 135 NG/DL T3 [id number] 00:00:00 Test Item Value Reference Range Interpretation Comments T3 TOTAL (test code = 2818) 135 NG/DL T3 [id number] 00:00:00 Test Item Value Reference Range Interpretation Comments T3 TOTAL (test code = 2818) 135 NG/DL T4 (THYROXINE)2021-06-12 00:00:00 Test Item Value Reference Range Interpretation Comments T4 (THYROXINE) (test code = 2819) 6.9 UG/DL T4 (THYROXINE)2021-06-12 00:00:00 Test Item Value Reference Range Interpretation Comments T4 (THYROXINE) (test code = 2819) 6.9 UG/DL VALPROIC [id number] 00:00:00 Test Item Value Reference Range Interpretation Comments VALPROIC ACID (test code = 3025) 43.2 UG/ML VALPROIC [id number] 00:00:00 Test Item Value Reference Range Interpretation Comments VALPROIC ACID (test code = 3025) 43.2 UG/ML CBC W/AUTO [id number] 00:00:00 Test Item Value Reference Range Interpretation [...] NUCLEATED RBCS (test code = 0.00 K/UL 53434) CBC W/AUTO [id number] 00:00:00 Test Item Value Reference Range Interpretation [...] NUCLEATED RBCS (test code = 0.00 K/UL 30202) CBC W/AUTO [id number] 00:00:00 Test Item Value Reference Range Interpretation [...] NUCLEATED RBCS (test code = 0.00 K/UL 05385) LIPID [id number] 00:00:00 Test Item Value Reference Range Interpretation Comments CHOLESTEROL (test code = 2210) 140 MG/DL TRIGLYCERIDES (test code = 2232) 98 MG/DL HDL CHOLESTEROL (test code = 2220) 45 MG/DL CALC LDL CHOL (test code = 2237) 77 MG/DL RISK RATIO LDL/HDL (test code = 1.71 RATIO 2238) LIPID [id number] 00:00:00 Test Item Value Reference Range Interpretation Comments CHOLESTEROL (test code = 2210) 140 MG/DL TRIGLYCERIDES (test code = 2232) 98 MG/DL HDL CHOLESTEROL (test code = 2220) 45 MG/DL CALC LDL CHOL (test code = 2237) 77 MG/DL RISK RATIO LDL/HDL (test code = 1.71 RATIO 2238) COMPREHENSIVE METABOLIC [id number] 00:00:00 Test Item Value Reference Range Interpretation Comments GLUCOSE (test code = 2217) 106 MG/DL BUN (test code = 2208) 11 MG/DL CREATININE (test code = 2214) 0.66 MG/DL eGFR AMER. (test code 147 ML/MIN/1.73 = 42475) eGFR NON- AMER. (test 127 ML/MIN/1.73 code = 76590) CALC BUN/CREAT (test code = 17 RATIO [...] code = 2219) 16 U/L COMPREHENSIVE METABOLIC [id number] 00:00:00 Test Item Value Reference Range Interpretation Comments GLUCOSE (test code = 2217) 106 MG/DL BUN (test code = 2208) 11 MG/DL CREATININE (test code = 2214) 0.66 MG/DL eGFR AMER. (test code 147 ML/MIN/1.73 = 43420) eGFR NON- AMER. (test 127 ML/MIN/1.73 code = 71590) CALC BUN/CREAT (test code = 17 RATIO [...] ALKALINE PHOSPHATASE (test 76 U/L code = 220) AST (test code = 2218) 18 U/L ALT (test code = 2219) 16 U/L VITAMIN D, 25 [id number] 00:00:00 Test Item Value Reference Range Interpretation Comments VITAMIN D, 25 OH (test code = 4958) 18 NG/ML VITAMIN D, 25 [id number] 00:00:00 Test Item Value Reference Range Interpretation Comments VITAMIN D, 25 OH (test code = 4958) 18 NG/ML CBC W/AUTO [id number] 00:00:00 Test Item Value Reference Range Interpretation [...] NUCLEATED RBCS (test code = 0.00 K/UL 88816) CBC W/AUTO [id number] 00:00:00 Test Item Value Reference Range Interpretation [...] NUCLEATED RBCS (test code = 0.00 K/UL 23551) CBC W/AUTO [id number] 00:00:00 Test Item Value Reference Range Interpretation [...] NUCLEATED RBCS (test code = 0.00 K/UL 63062) LIPID [id number] 00:00:00 Test Item Value Reference Range Interpretation Comments CHOLESTEROL (test code = 2210) 140 MG/DL TRIGLYCERIDES (test code = 2232) 98 MG/DL HDL CHOLESTEROL (test code = 2220) 45 MG/DL CALC LDL CHOL (test code = 2237) 77 MG/DL RISK RATIO LDL/HDL (test code = 1.71 RATIO 2238) LIPID [id number] 00:00:00 Test Item Value Reference Range Interpretation Comments CHOLESTEROL (test code = 2210) 140 MG/DL TRIGLYCERIDES (test code = 2232) 98 MG/DL HDL CHOLESTEROL (test code = 2220) 45 MG/DL CALC LDL CHOL (test code = 2237) 77 MG/DL RISK RATIO LDL/HDL (test code = 1.71 RATIO 2238) COMPREHENSIVE METABOLIC [id number] 00:00:00 Test Item Value Reference Range Interpretation Comments GLUCOSE (test code = 2217) 106 MG/DL BUN (test code = 2208) 11 MG/DL CREATININE (test code = 2214) 0.66 MG/DL eGFR AMER. (test code 147 ML/MIN/1.73 = 71806) eGFR NON- AMER. (test 127 ML/MIN/1.73 code = 03636) CALC BUN/CREAT (test code = 17 RATIO [...] code = 2219) 16 U/L COMPREHENSIVE METABOLIC [id number] 00:00:00 Test Item Value Reference Range Interpretation Comments GLUCOSE (test code = 2217) 106 MG/DL BUN (test code = 2208) 11 MG/DL CREATININE (test code = 2214) 0.66 MG/DL eGFR AMER. (test code 147 ML/MIN/1.73 = 73342) eGFR NON- AMER. (test 127 ML/MIN/1.73 code = 84260) CALC BUN/CREAT (test code = 17 RATIO [...] = 2219) 16 U/L VITAMIN D, 25 [id number] 00:00:00 Test Item Value Reference Range Interpretation Comments VITAMIN D, 25 OH (test code = 4958) 18 NG/ML VITAMIN D, 25 [id number] 00:00:00 Test Item Value Reference Range Interpretation Comments VITAMIN D, 25 OH (test code = 4958) 18 NG/ML [id number] 00:00:00 Test Item Value Reference Range Interpretation Comments TSH, THIRD GENERATION (test code 5.450 UIU/ML = 2821) [id number] 00:00:00 Test Item Value Reference Range Interpretation Comments TSH, THIRD GENERATION (test code 5.450 UIU/ML = 2821) [id number] 00:00:00 Test Item Value Reference Range Interpretation [...] (THYROXINE) (test code = 0.91 NG/DL 2823) [id number] 00:00:00 Test Item Value Reference Range Interpretation Comments TSH, THIRD GENERATION (test code 5.450 UIU/ML = 2821) [id number] 00:00:00 Test Item Value Reference Range Interpretation Comments TSH, THIRD GENERATION (test code 5.450 UIU/ML = 2821) [id number] 00:00:00 Test Item Value Reference Range Interpretation [...] code = 0.91 NG/DL 2823) CBC W/AUTO [id number] 00:00:00 Test Item Value Reference Range Interpretation [...] NUCLEATED RBCS (test code = 0.00 K/UL 29317) CBC W/AUTO [id number] 00:00:00 Test Item Value Reference Range Interpretation [...] NUCLEATED RBCS (test code = 0.00 K/UL 62980) CBC W/AUTO [id number] 00:00:00 Test Item Value Reference Range Interpretation [...] NUCLEATED RBCS (test code = 0.00 K/UL 47711) COMPREHENSIVE METABOLIC [id number] 00:00:00 Test Item Value Reference Range Interpretation Comments GLUCOSE (test code = 2217) 83 MG/DL BUN (test code = 2208) 14 MG/DL CREATININE (test code = 2214) 0.66 MG/DL eGFR AMER. (test code 148 ML/MIN/1.73 = 77951) eGFR NON- AMER. (test 128 ML/MIN/1.73 code = 18433) CALC BUN/CREAT (test code = 21 RATIO [...] code = 2219) 37 U/L COMPREHENSIVE METABOLIC [id number] 00:00:00 Test Item Value Reference Range Interpretation Comments GLUCOSE (test code = 2217) 83 MG/DL BUN (test code = 2208) 14 MG/DL CREATININE (test code = 2214) 0.66 MG/DL eGFR AMER. (test code 148 ML/MIN/1.73 = 49167) eGFR NON- AMER. (test 128 ML/MIN/1.73 code = 83479) CALC BUN/CREAT (test code = 21 RATIO [...] ALT (test code = 2219) 37 U/L [id number] 00:00:00 Test Item Value Reference Range Interpretation Comments TSH, THIRD GENERATION (test 18.800 UIU/ML code = 2821) [id number] 00:00:00 Test Item Value Reference Range Interpretation Comments TSH, THIRD GENERATION (test 18.800 UIU/ML code = 2821) [id number] 00:00:00 Test Item Value Reference Range Interpretation Comments TSH, THIRD GENERATION (test 18.800 UIU/ML code = 2821) LIPID [id number] 00:00:00 Test Item Value Reference Range Interpretation Comments CHOLESTEROL (test code = 2210) 142 MG/DL TRIGLYCERIDES (test code = 2232) 82 MG/DL HDL CHOLESTEROL (test code = 2220) 54 MG/DL CALC LDL CHOL (test code = 2237) 72 MG/DL RISK RATIO LDL/HDL (test code = 1.33 RATIO 2238) LIPID [id number] 00:00:00 Test Item Value Reference Range Interpretation Comments CHOLESTEROL (test code = 2210) 142 MG/DL TRIGLYCERIDES (test code = 2232) 82 MG/DL HDL CHOLESTEROL (test code = 2220) 54 MG/DL CALC LDL CHOL (test code = 2237) 72 MG/DL RISK RATIO LDL/HDL (test code = 1.33 RATIO 2238) VALPROIC [id number] 00:00:00 Test Item Value Reference Range Interpretation Comments VALPROIC ACID (test code = 3025) 46.7 UG/ML VALPROIC [id number] 00:00:00 Test Item Value Reference Range Interpretation Comments VALPROIC ACID (test code = 3025) 46.7 UG/ML CBC W/AUTO [id number] 00:00:00 Test Item Value Reference Range Interpretation [...] NUCLEATED RBCS (test code = 0.00 K/UL 96735) CBC W/AUTO [id number] 00:00:00 Test Item Value Reference Range Interpretation [...] NUCLEATED RBCS (test code = 0.00 K/UL 70871) CBC W/AUTO [id number] 00:00:00 Test Item Value Reference Range Interpretation [...] NUCLEATED RBCS (test code = 0.00 K/UL 83304) COMPREHENSIVE METABOLIC [id number] 00:00:00 Test Item Value Reference Range Interpretation Comments GLUCOSE (test code = 2217) 83 MG/DL BUN (test code = 2208) 14 MG/DL CREATININE (test code = 2214) 0.66 MG/DL eGFR AMER. (test code 148 ML/MIN/1.73 = 02788) eGFR NON- AMER. (test 128 ML/MIN/1.73 code = 87397) CALC BUN/CREAT (test code = 21 RATIO [...] A/G RATIO (test code = 2.1 RATIO 223) BILIRUBIN, TOTAL (test code = 0.2 MG/DL 2206) ALKALINE PHOSPHATASE (test 76 U/L code = 2204) AST (test code = 2218) 26 U/L ALT (test code = 2219) 37 U/L COMPREHENSIVE METABOLIC [id number] 00:00:00 Test Item Value Reference Range Interpretation Comments GLUCOSE (test code = 2217) 83 MG/DL BUN (test code = 2208) 14 MG/DL CREATININE (test code = 2214) 0.66 MG/DL eGFR AMER. (test code 148 ML/MIN/1.73 = 59248) eGFR NON- AMER. (test 128 ML/MIN/1.73 code = 81676) CALC BUN/CREAT (test code = 21 RATIO 2235) SODIUM (test code = 2231) 139 MEQ/L POTASSIUM (test code = 2228) 4.1 MEQ/L CHLORIDE (test code = 2215) 103 MEQ/L CARBON DIOXIDE (test code = 22 MEQ/L 2205) CALCIUM (test code = 2209) 9.1 MG/DL PROTEIN, TOTAL (test code = 6.5 G/DL 2228) ALBUMIN (test code = 220) 4.4 G/DL CALC GLOBULIN (test code = 2.1 G/DL 2239) CALC A/G RATIO (test code = 2.1 RATIO 2233) BILIRUBIN, TOTAL (test code = 0.2 MG/DL 2206) ALKALINE PHOSPHATASE (test 76 U/L code = 2204) AST (test code = 2218) 26 U/L ALT (test code = 2219) 37 U/L [id number] 00:00:00 Test Item Value Reference Range Interpretation Comments TSH, THIRD GENERATION (test 18.800 UIU/ML code = 2821) [id number] 00:00:00 Test Item Value Reference Range Interpretation Comments TSH, THIRD GENERATION (test 18.800 UIU/ML code = 2821) [id number] 00:00:00 Test Item Value Reference Range Interpretation Comments TSH, THIRD GENERATION (test 18.800 UIU/ML code = 2821) LIPID [id number] 00:00:00 Test Item Value Reference Range Interpretation Comments CHOLESTEROL (test code = 2210) 142 MG/DL TRIGLYCERIDES (test code = 2232) 82 MG/DL HDL CHOLESTEROL (test code = 2220) 54 MG/DL CALC LDL CHOL (test code = 2237) 72 MG/DL RISK RATIO LDL/HDL (test code = 1.33 RATIO 2238) LIPID [id number] 00:00:00 Test Item Value Reference Range Interpretation Comments CHOLESTEROL (test code = 2210) 142 MG/DL TRIGLYCERIDES (test code = 2232) 82 MG/DL HDL CHOLESTEROL (test code = 2220) 54 MG/DL CALC LDL CHOL (test code = 2237) 72 MG/DL RISK RATIO LDL/HDL (test code = 1.33 RATIO 2238) VALPROIC [id number] 00:00:00 Test Item Value Reference Range Interpretation Comments VALPROIC ACID (test code = 3025) 46.7 UG/ML VALPROIC [id number] 00:00:00 Test Item Value Reference Range Interpretation Comments VALPROIC ACID (test code = 3025) 46.7 UG/ML VALPROIC [id number] 00:00:00 Test Item Value Reference Range Interpretation Comments VALPROIC ACID (test code = 3025) 72.2 UG/ML VALPROIC [id number] 00:00:00 Test Item Value Reference Range Interpretation Comments VALPROIC ACID (test code = 3025) 72.2 UG/ML LIPID [id number] 00:00:00 Test Item Value Reference Range Interpretation Comments CHOLESTEROL (test code = 2210) 135 MG/DL TRIGLYCERIDES (test code = 2232) 111 MG/DL HDL CHOLESTEROL (test code = 2220) 51 MG/DL CALC LDL CHOL (test code = 2237) 65 MG/DL RISK RATIO LDL/HDL (test code = 1.27 RATIO 2238) LIPID [id number] 00:00:00 Test Item Value Reference Range Interpretation Comments CHOLESTEROL (test code = 2210) 135 MG/DL TRIGLYCERIDES (test code = 2232) 111 MG/DL HDL CHOLESTEROL (test code = 2220) 51 MG/DL CALC LDL CHOL (test code = 2237) 65 MG/DL RISK RATIO LDL/HDL (test code = 1.27 RATIO 2238) VITAMIN D, 25 [id number] 00:00:00 Test Item Value Reference Range Interpretation Comments VITAMIN D, 25 OH (test code = 4958) 25 NG/ML VITAMIN D, 25 [id number] 00:00:00 Test Item Value Reference Range Interpretation Comments VITAMIN D, 25 OH (test code = 4958) 25 NG/ML VITAMIN [id number] 00:00:00 Test Item Value Reference Range Interpretation Comments VITAMIN B-12 (test code = 2840) 481 PG/ML VITAMIN [id number] 00:00:00 Test Item Value Reference Range Interpretation Comments VITAMIN B-12 (test code = 2840) 481 PG/ML VITAMIN [id number] 00:00:00 Test Item Value Reference Range Interpretation Comments VITAMIN B-12 (test code = 2840) 481 PG/ML VALPROIC [id number] 00:00:00 Test Item Value Reference Range Interpretation Comments VALPROIC ACID (test code = 3025) 72.2 UG/ML VALPROIC [id number] 00:00:00 Test Item Value Reference Range Interpretation Comments VALPROIC ACID (test code = 3025) 72.2 UG/ML LIPID [id number] 00:00:00 Test Item Value Reference Range Interpretation Comments CHOLESTEROL (test code = 2210) 135 MG/DL TRIGLYCERIDES (test code = 2232) 111 MG/DL HDL CHOLESTEROL (test code = 2220) 51 MG/DL CALC LDL CHOL (test code = 2237) 65 MG/DL RISK RATIO LDL/HDL (test code = 1.27 RATIO 2238) LIPID [id number] 00:00:00 Test Item Value Reference Range Interpretation Comments CHOLESTEROL (test code = 2210) 135 MG/DL TRIGLYCERIDES (test code = 2232) 111 MG/DL HDL CHOLESTEROL (test code = 2220) 51 MG/DL CALC LDL CHOL (test code = 2237) 65 MG/DL RISK RATIO LDL/HDL (test code = 1.27 RATIO 2238) VITAMIN D, 25 [id number] 00:00:00 Test Item Value Reference Range Interpretation Comments VITAMIN D, 25 OH (test code = 4958) 25 NG/ML VITAMIN D, 25 [id number] 00:00:00 Test Item Value Reference Range Interpretation Comments VITAMIN D, 25 OH (test code = 4958) 25 NG/ML VITAMIN [id number] 00:00:00 Test Item Value Reference Range Interpretation Comments VITAMIN B-12 (test code = 2840) 481 PG/ML VITAMIN [id number] 00:00:00 Test Item Value Reference Range Interpretation Comments VITAMIN B-12 (test code = 2840) 481 PG/ML VITAMIN [id number] 00:00:00 Test Item Value Reference Range Interpretation Comments VITAMIN B-12 (test code = 2840) 481 PG/ML CHLAMYDIA, AMPLIFIED, [id number] 00:00:00 Test Item Value Reference Range Interpretation Comments CHLAMYDIA, NAAT (test code = 29791) NEGATIVE CHLAMYDIA, AMPLIFIED, [id number] 00:00:00 Test Item Value Reference Range Interpretation Comments CHLAMYDIA, NAAT (test code = 68481) NEGATIVE GC, AMPLIFIED, [id number] 00:00:00 Test Item Value Reference Range Interpretation Comments GONORRHEA, NAAT (test code = 47826) NEGATIVE GC, AMPLIFIED, [id number] 00:00:00 Test Item Value Reference Range Interpretation Comments GONORRHEA, NAAT (test code = 74357) NEGATIVE CHLAMYDIA, AMPLIFIED, [id number] 00:00:00 Test Item Value Reference Range Interpretation Comments CHLAMYDIA, NAAT (test code = 62236) NEGATIVE CHLAMYDIA, AMPLIFIED, [id number] 00:00:00 Test Item Value Reference Range Interpretation Comments CHLAMYDIA, NAAT (test code = 65657) NEGATIVE GC, AMPLIFIED, [id number] 00:00:00 Test Item Value Reference Range Interpretation Comments GONORRHEA, NAAT (test code = 09524) NEGATIVE GC, AMPLIFIED, [id number] 00:00:00 Test Item Value Reference Range Interpretation Comments GONORRHEA, NAAT (test code = 11535) NEGATIVE VAGINAL PATHOGENS DNA [id number] 00:00:00 Test Item Value Reference Range Interpretation Comments DEDRA SPECIES (test code = ) NEGATIVE G. VAGINALIS (test code = 37483) NEGATIVE T. VAGINALIS (test code = 72407) NEGATIVE VAGINAL PATHOGENS DNA [id number] 00:00:00 Test Item Value Reference Range Interpretation Comments DEDRA SPECIES (test code = 74752) NEGATIVE G. VAGINALIS (test code = 50549) NEGATIVE T. VAGINALIS (test code = 65879) NEGATIVE VAGINAL PATHOGENS DNA [id number] 00:00:00 Test Item Value Reference Range Interpretation Comments DEDRA SPECIES (test code = 90548) NEGATIVE G. VAGINALIS (test code = 05848) NEGATIVE T. VAGINALIS (test code = 93153) NEGATIVE VAGINAL PATHOGENS DNA [id number] 00:00:00 Test Item Value Reference Range Interpretation Comments DEDRA SPECIES (test code = 30219) NEGATIVE G. VAGINALIS (test code = 76288) NEGATIVE T. VAGINALIS (test code = 71220) NEGATIVE SURGICAL [id number] 07:49:00 RUN DATE: 08/24/18 [facility] *LIVE* PAGE 1 RUN TIME: 748 Specimen Inquiry RUN USER: INTERFACE --------- ---PATIENT: MARCO WYLIE LOC: ED U #: [id number] AGE/SX: 18/F ROOM: [id number]/20/18REG DR: Rajendra Salas MD : 01 BED: DIS: STATUS: [facility] [place] TLOC: SPEC #: [id number] RECD: 08/20/18 STATUS: JENNA REQ #: [id number] MARVIN: 08/20/[address]: Rajendra Salas MD ENTERED: 08/22/18 SP TYPE: SURG SPEC OTHR DR: Gregory Thompson MD ORDERED: LEVEL 4 CODES: [id number] - ESOPHAGUS, NOS V49488 - STOMACH, NOS [id number] - SMALL INTESTINE COPIES TO: Rajendra Salas MD [address] [place], [place] [address] [address] [place] [address] Gregory Thompson MD [address] [place] [id number] PROCEDURES: LEVEL 4 (Incomplete) TISSUES: 1. SMALL INTESTINE, NOS - Small intestine, duodenum, bx. 2. STOMACH, NOS - Stomach, bx. 3. ESOPHAGUS, NOS - Esophagus, distal, bx. 4. ESOPHAGUS, NOS - Esophagus, mid, bx. FINAL DIAGNOSIS Small intestine, duodenum, bx.: Mild chronic inflammation,no celiac disease identified. Stomach, bx.: Mild chronic gastritis, no Helicobacter organisms seen. Esophagus, distal, bx.: Mild chronic inflammation, no goblet cell metaplasia identified. Esophagus, mid, bx.: Mild chronic inflammation, no goblet cell metaplasia identified. CONTINUED ON NEXT PAGE RUN DATE: 08/24/18 [facility] *LIVE* PAGE 2 RUN TIME: 748 Specimen Inquiry RUN USER: INTERFACE ------- -----SPEC #: [id number] PATIENT: MARCO WYLIE #[id number] (Continued) GROSS AND MICROSCOPIC GROSS EXAMINATION: Received [...] These changes are consistent with reflux esophagitis. TheAlcian blue/PAS stain does not show specialized intestinal [...] special stains have been reviewed, the appropriate positive/ne gative controls have been reviewed and are appropriately positive/negative). POST-OP DIAGNOSIS Duodenitis, gastritis CONTINUED ON NEXT PAGE RUN DATE: 08/24/18 [facility] *LIVE* PAGE 3 RUN TIME: 748 Specimen Inquiry RUN USER: INTERFACE SPEC #: [id number] PATIENT: MARCO WYLIE #[id number] (Continued)- PRE-OP DIAGNOSIS Abdominal pain Signed SIGNATURE ON FILE Sonia Kennedy MD 08/24/18 0749 END OF REPORT CBC W/AUTO [id number] 09:10:00 Test Item Value Reference Range Interpretation [...] (test code NO = MDIFF) HCG SERUM [id number] 09:09:00 Test Item Value Reference Range Interpretation Comments HCG SERUM QUAL (test code = SERUM NEGATIVE NEGATIVE HCGQL)
[2022-09-02 21:51] LABS: Urine Blood 1+ (Negative); Urine Glucose Negative (Negative); Urine Protein Negative (Negative)
[2022-09-02 22:30] LABS: Absolute Lymphocytes (CBC) 2.9 K/uL (0.7-4.9); Hematocrit 40.6 % (36.0-45.0); Lymphocytes % 21.2 % (15.3-44.8); MCV 86.1 fL (80-100); MPV 9.5 fL (7.6-11.3); RBC Red Blood Cell Count 4.71 M/uL (3.86-4.86)
[2022-09-02 22:34] LABS: Protime INR 1.09
[2022-09-02 22:50] LABS: Albumin 4.1 g/dL (3.4-5.0); Bilirubin Total 0.3 mg/dL (0.2-1.0); Potassium 3.5 mmol/L (3.5-5.1)
[2022-09-02] MEDS ORDERED: NA CHLORIDE 0.9% 1,000 ML ONE (23:01)
[2022-09-02] MEDS ORDERED: CIPROFLOXACIN HCL 500 MG TAB ONE (23:26)
--- NOTE | 2022-09-03 00:04 | ER ---
Nurse's Notes [facility] Name: Rissa Sales Age: 22 yrs Sex: Female : 2000 Arrival Date: 09/02/2022 Time: 19:59 Bed 8 Private MD: Diagnosis: Cellulitis of other sites-right breast;Cutaneous abscess of other sites-right breast Presentation: 09/02 20:46 Chief complaint: Patient states: i have a lump in right breast. i saw my doctor and lg3 they wanted to send me to see someone else but it was too far. i came here and was diagnosed with a hematoma and sent me to Dr. Chavira. Dr. Chavira said the same thing. i have an appointment Monday for ultrasound to see if it is an abscess but it has gotten much worse and more painful since then. It is hot to the touch, painful, mantilla and swollen. i was sent home with antibiotics that i am currently taking. Coronavirus screen: Client denies travel out of the [place] in the last 14 days. At this time, the client does not indicate any symptoms associated with coronavirus-19. Ebola Screen: No symptoms or risks identified at this time. Initial Sepsis Screen: Does the patient meet any 2 criteria? No. Patient's initial sepsis screen is negative. Does the patient have a suspected source of infection? No. Patient's initial sepsis screen is negative. Risk Assessment: Do you want to hurt yourself or someone else? Patient reports no desire to harm self or others. Onset of symptoms was July 2021. 20:46 Method Of Arrival: Ambulatory lg3 20:46 Acuity: QUANG 3 lg3 Triage Assessment: 20:53 General: Appears in no apparent distress. uncomfortable, Behavior is calm, cooperative. lg3 Pain: Complains of pain in right breast. EENT: No deficits noted. No signs and/or symptoms were reported regarding the EENT system. Neuro: No deficits noted. Plaza Agitation-Sedation Scale (RASS): 0 - Alert and Calm Level of Consciousness is awake, alert, obeys commands, Oriented to person, place, time, situation. Cardiovascular: No deficits noted. Denies chest pain, shortness of breath. Respiratory: No deficits noted. Airway is patent Trachea midline Respiratory effort is even, unlabored, Respiratory pattern is regular, symmetrical. GI: No deficits noted. No signs and/or symptoms were reported involving the gastrointestinal system. : No deficits noted. No signs and/or symptoms were reported regarding the genitourinary system. Musculoskeletal: No deficits noted. No signs and/or symptoms reported regarding the musculoskeletal system. Circulation, motion, and sensation intact. Range of motion: intact in all extremities, Swelling present in right breast. 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 Flu vaccine is not up to date. - Social history:: Smoking status: Reported history of juuling and/or vaping. Patient uses alcohol, only on a social basis. street drugs, marijuana. Screenin:08 [facility] ED Fall Risk Assessment (Adult) History of falling in the last 3 months, mb9 including since admission No falls in past 3 months (0 pts) Confusion or Disorientation No (0 pts) Intoxicated or Sedated No (0 pts) Impaired Gait No (0 pts) Mobility Assist Device Used No (0 pt) Altered Elimination No (0 pt) Score/Fall Risk Level 0 - 2 = Low Risk Oriented to surroundings, Maintained a safe environment, Educated pt \T\ family on fall prevention, incl call for assistance when getting out of bed. Abuse screen: Denies threats or abuse. Nutritional screening: No deficits noted. Tuberculosis screening: No symptoms or risk factors identified. Assessment: 21:01 Reassessment: pt brought back to ER room. mb9 21:07 General: Appears in no apparent distress. Behavior is calm, cooperative, appropriate mb9 for age. Pain: Complains of pain in right breast Pain radiates to chest Pain currently is 8 out of 10 on a pain scale. Quality of pain is described as aching, throbbing, Is continuous. Neuro: Level of Consciousness is awake, alert, obeys commands, Oriented to person, place, time, situation, Appropriate for age. Cardiovascular: Heart tones S1 S2 present Capillary refill < 3 seconds is brisk Patient's skin is warm and dry. Rhythm is regular. Respiratory: Airway is patent Respiratory effort is even, unlabored, Respiratory pattern is regular, symmetrical. Derm: redness and swelling in right breast. Musculoskeletal: Range of motion: intact in all extremities. 22:01 Reassessment: first set of blood cultures sent. mb9 Vital Signs: 20:46 BP 141 / 98; Pulse 92; Resp 17 S; Temp 98.0; Pulse Ox 100% on R/A; Weight 90.72 kg (R); lg3 Height 5 ft. 4 in. (162.56 cm) (R); Pain 6/10; 21:41 BP 125 / 82; Pulse 96; Resp 18; Pulse Ox 100% ; mb9 22:45 BP 132 / 85; Pulse 87; Resp 22 S; Pulse Ox 100% on R/A; as6 0304 00:33 BP 101 / 65; Pulse 68; Resp 18 S; Pulse Ox 99% on R/A; as6 03 20:46 Body Mass Index 34.33 (90.72 kg, 162.56 cm) lg3 ED Course: 09/02 19:59 Patient arrived in ED. am2 20:41 Valentin Maria PA is PHCP. cp 20:41 Shane Winslow MD is Attending Physician. cp 20:53 Triage completed. lg3 20:53 Arm band placed on right wrist. lg3 21:09 Juanis Brizuela, RUBY is Primary Nurse. mb9 21:09 Placed in gown. Bed in low position. Call light in reach. Side rails up X 1. Client mb9 placed on continuous cardiac and pulse oximetry monitoring. NIBP monitoring applied. teletypesetter monitor on. 21:41 breast exam. as6 22:00 Inserted saline lock: 20 gauge in right antecubital area, using aseptic technique. mb9 22:00 EKG done, by ED staff, reviewed by Valentin CHI. mb9 22:06 Protime (+inr) Sent. mb9 22:06 CBC with Diff Sent. mb9 22:06 CMP Sent. mb9 09/03 00:00 Nate Chavira MD is Referral Physician. cp 00:33 IV discontinued, intact, bleeding controlled, No redness/swelling at site. Pressure as6 dressing applied. Administered Medications: 09/02 23:01 Drug: NS 0.9% 1000 ml Route: IV; Rate: 1000 ml; Site: right antecubital; mb9 09/03 00:30 Follow up: Response: No adverse reaction; IV Status: Completed infusion; IV Intake: as6 1000ml 09/02 23:22 Not Given (Duplicate Order): NS 0.9% 1000 ml IV at 1 bolus Per protocol; 1000 mL bolus mb9 23:26 Drug: Cipro (ciprofloxacin) 500 mg Route: PO; mb9 09/03 00:29 Follow up: Response: No adverse reaction as6 Medication: 09/02 21:09 VIS not applicable for this client. mb9 Intake: 09/03 00:30 IV: 1000ml; Total: 1000ml. as6 Outcome: 00:03 Discharge ordered by . cp 00:32 Discharged to home ambulatory. as6 00:32 Condition: stable 00:32 Discharge instructions given to patient, Instructed on discharge instructions, follow up and referral plans. medication usage, Demonstrated understanding of instructions, follow-up care, medications, Prescriptions given X 3. 00:35 Patient left the ED. as6 Signatures: Valentin Maria PA PA cp Erlinda Kyle am2 Radha Wells RN RN lg3 Tapan Wong RN RN as6 Juanis Brizuela RN RN mb9
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
[2022-09-03 00:51] VITALS: TEMP 98
[2022-09-03 01:04] VITALS: BP 101/65; O2SAT 99
--- NOTE | 2022-09-03 15:21 | RAD REPORT ---
EXAM DESCRIPTION: US - Extremity Nonvascular Limited - 09/02/2022 11:00 pm CLINICAL HISTORY: Swelling right breast Extremity Nonvascular Limited. History of trauma. COMPARISON: None. TECHNIQUE: Survey ultrasound imaging of the right breast was performed including color Doppler evalu ation with client representative images obtained. FINDINGS: Heterogeneous hypoechoic region in the region of concern in the right breast measuring up to 2.5 cm. Tiny fluid density components within this heterogeneous region measures 0.7 cm. There is m otion of fluid through a neck towards the skin surface. Overlying skin thickening and hyperemia. Plea se note that this exam does not exclude malignancy. IMPRESSION: 1. Heterogeneous hypoechoic collection in the region of concern in the right breast. D ifferential includes hematoma or phlegmon/abscess. 2. Recommend further evaluation in a diagnostic breast imaging center. Electronically signed by: Olga Gifford MD 09/02/2022 11:52 PM BALE TIE MACHINE OPERATOR Due to temporary technical issues with the PACS/Fluency reporting system, reports are being signed by the in house radiologists without review as a courtesy to insure prompt reporting. The interpreting radiologist is fully responsible for the content of the report.
--- NOTE | 2022-09-05 16:47 | EKG ---
Test Date: 2022-09-02 Test Time: 21:54:44 Grain Picker: MEASUREMENT RESULTS: Intervals: Rate: 68 KS: 152 QRSD: 102 QT: 418 QTc: 444 [place]: P: 30 KS: 152 QRS: 75 T: 42 INTERPRETIVE STATEMENTS: Normal sinus rhythm Normal ECG Compared to ECG 03/28/2022 01:03:29 No significant changes Electronically Signed On 09-05-22 16:39:39 GARDENING INSTRUCTOR by Luís Benson
== END 2022-09-03 00:35 | disposition home or self-care (01) ==
LOC: ER 19:53
DX: N61.0 Mastitis without abscess (principal); N61.1 Abscess of the breast and nipple; E03.9 Hypothyroidism, unspecified; F31.9 Bipolar disorder, unspecified; Z88.8 Allergy status to other drugs, medicaments and biological substances
CPT/HCPCS: 93005; 87040 ×2; 85025; 36415; 81025; 85610; 83605; 81003; 80053; 76882; 96360; 99284; J7030

== ENCOUNTER 2022-09-06 07:59 | Day surgery (SDC) | payer OTHER ==
[2022-09-06] MEDS ORDERED: CEFAZOLIN SODIUM 1 GM/VIAL ONE (08:35)
[2022-09-06] MEDS ORDERED: Ringers Lactate 1,000 ML IV ONE (08:35)
[2022-09-06] MEDS ORDERED: CELECOXIB 100 MG CAPSULE ONE (08:51)
[2022-09-06] MEDS ORDERED: ACETAMINOPHEN 500 MG TAB ONE (08:51)
[2022-09-06] MEDS ORDERED: KETOROLAC 30 MG/ML INJ ONE (08:52)
[2022-09-06] MEDS ORDERED: propofoL 200 MG/20 ML VIAL IV ONE (08:52)
[2022-09-06] MEDS ORDERED: FENTANYL CITR 100 MCG/2 ML ONE (08:52)
[2022-09-06] MEDS ORDERED: MIDAZOLAM HCL 2 MG/2 ML INJ ONE (08:52)
[2022-09-06] MEDS ORDERED: dexAMETHasone 10 MG/ML VIAL ONE (08:52)
[2022-09-06] MEDS ORDERED: ONDANSETRON 4 MG/2 ML VIAL ONE (08:53)
[2022-09-06] MEDS ORDERED: LIDOCAINE 2% MPF 5 ML VIAL ONE (08:53)
[2022-09-06] MEDS ORDERED: BUPIVACAINE 0.5% PF 10 ML VIAL ONE (09:24)
[2022-09-06] MEDS ORDERED: NS 0.9% VIAL 10 ML ONE (11:15)
[2022-09-06] MEDS: HYDROMORPHONE HCL 1 MG/ML INJ ONE ×2 (12:02→12:07)
--- NOTE | 2022-09-06 12:07 | P.BOP ---
Preoperative diagnosis: right breast complex abscess, Cellulitis, mastitis Postoperative diagnosis: same Primary procedure: Incision and drainage of right breast abscess Estimated blood loss: <10cc Specimen: pus Findings: pus Anesthesia: General Complications: None Drain(s): Other (1/" iodoform packing) Transferred to: Recovery Room Condition: Good
[2022-09-06 12:37] VITALS: BP 121/67; TEMP 97.1; O2SAT 98
--- NOTE | 2022-09-06 13:28 | DS ---
Date of Discharge: 09/06/2022 Diagnoses: Right breast complex abscess, cellulitis, mastitis. Procedure: Incision and drainage of right breast abscess. Disposition: Home. Activity: As tolerated. No heavy lifting. Plan: The patient was advised to come tomorrow, we can teach her how to do dressing changes and use breast support. TRACY/SUSAN Voice ID: [id number] Report ID: [id number]
--- NOTE | 2022-09-06 14:13 | OP ---
Date of Procedure: 09/06/2022 Surgeon: Nate Chavira MD Preoperative Diagnoses: Breast complex abscess, cellulitis, and mastitis. Postoperative Diagnoses: Breast complex abscess, cellulitis, and mastitis. Procedure: Incision and drainage of right breast abscess about 3 x 4 x 1.5 cm. Estimated Blood Loss: Less than 10 mL. Specimen: Pus. Finding: Abscess. Anesthesia: General plus local. Packing: Iodoform quarter of an inch. Indication: This is the case of a 22-year-old patient, who has a nipple piercing, developed erythema of the area. She has been on antibiotics for few days x2 and even though it is not getting worse, t his abscess that covers at least one quarter of her breast is not improving. She has an area of fluc tuance. Ultrasound showed the abscess, so we offered incision and drainage with benefits, alternativ es, and risks including, but not limited to infection, bleeding, damage to adjacent structures, anest hesia complication, nonhealing wound, deformity, LA, and even . She also understands this may n ot relieve any symptoms. She might need more than one surgical intervention. She also understands s he will require wound care. She removed the piercing yesterday. It seems to be likely corporate of this abscess. She has multiple piercings in her body. She refused to remove or follow them except t he right breast. She understands the risks of burning and skin damage, but at the same time in this particular breast, I am not sure it is a good idea to put the piercing back there again, although onc e again we explained the risks and benefits of that. She understood, signed a consent. Procedure In Detail: The patient was brought to the operating room, placed supine in position. Anes thesia was without complication and time-out was called. Right breast was prepped and draped in the usual sterile fashion. An incision was made over the periareolar region and incision was carried michael n into this complex pocket with multiple loculations. We explored all of them and it is barely just pus. There were no masses palpated in that area. The area was irrigated, hemostasis was obtained, a nd the area was packed with iodoform quarter of an inch. The patient tolerated the procedure well. The patient was sent to recovery in stable condition. TRACY/SUSAN Voice ID: [id number] Report ID: [id number]
== END 2022-09-06 13:03 | disposition home or self-care (01) ==
LOC: OR 07:59
PROVIDERS: ATTEND Surgery
PROC: 0H9T0ZZ Drainage of Right Breast, Open Approach (ICD-10-PCS; principal; 2022-09-06 10:00)
DX: N61.1 Abscess of the breast and nipple (principal); E03.9 Hypothyroidism, unspecified; F41.9 Anxiety disorder, unspecified; F32.A Depression, unspecified; F17.210 Nicotine dependence, cigarettes, uncomplicated
CPT/HCPCS: 87070; 36415; 87205 ×2; 84703; 87075; 10060; A4216; J2704; J2001; J2250; J3010; J1100; J1170; J2405; J7120; J0690